=== PATIENT | male | born 1940 | race Caucasian/White ===

== ENCOUNTER 2017-04-11 04:41 | Observation (INO) | payer OTHER ==
[2017-04-11] MEDS ORDERED: ZOFRAN INJ 4 MG VIAL IVP ONE ×2 (04:58→06:06)
--- NOTE | 2017-04-11 05:01 | DR.GENAD ---
HPI - PCP Primary Care Physician: GLORIA - Complaint/Symptoms Chief Complaint Doctors Comments: Patient is complaining of nausea, vomiting and diarrhea for the past seven days getting worst tonight [place] [employer] States he had episode last week and went to see Dr. Greene and they told him to take kacy of Gator aide and lemon water to rehydrate himself because he thought he was dehydrated after getting over heated. He had a left frontal headache earlier tonight that has gone away. He denies chest pain or SOB. Chief Complaint:: N/V/D, HEADACHE STARTED TODAY(WEDNESDAY). GOT REAL HOT SOME DAYS AGO (LAST WEEK), AND JUST NEVER GOT OVER IT. SEEN LAST WEEK ALSO. - Nurses notes reviewed Nurses Notes Review: Yes - Source History Provided: Patient, EMS - Mode of Arrival Mode of Arrival: EMS - Timing Onset of Chief Complaint: 04/10/17 Came on: Gradually - Duration Duration: Intermittent How lon Duration: Days - Location Location: nausea, vomiting, diarrhea - Modifying Factors Worsens:: nothing Improves:: nothing PMH - PMH Past Medical History: Yes Past Medical History: Hypertension Past Surgical History: Yes Surgical History: Cholecystectomy Past Surgical History Comment: HERNIA REPAIR, CATARACTS - Family History History of Family Medical Conditions: Yes - Social History Does patient currently use any type of tobacco product: No Have you used tobacco products in the last 12 months: No Type of Tobacco Use: None Does any household member use tobacco: No Alcohol Use: None Do you use any recreational Drugs:: No Lives With: Spouse, Family Lives Where: Home - infectious screening Have you traveled outside the country in the last 6 months?: No Isolation: Standard ROS - Review of Systems Constitutional: No Symptoms Reported, Weakness, Loss of Appetite. negative: See HPI, Chills, Diaphoresis, Fever, Malaise, Irritable, Fatigue, Other Eyes: No Symptoms Reported ENTM: No Symptoms Reported Respiratoy: No Symptoms Reported Cardiovascular: No Symptoms Reported. negative: See HPI, Chest Pain, Edema, Palpitations, Syncope, Cyanosis, Skin Mottling, Other Gastrointestinal/Abdominal: No Symptoms Reported, Abdominal Pain, Diarrhea, Nausea, Vomiting Genitourinary: No Symptoms Reported. negative: See HPI, Discharge, Dysuria, Frequency, Hematuria, Pain, Bleeding, Other Neurological: No Symptoms Reported, Weakness Musculoskeletal: No Symptoms Reported Integumentary: No Symptoms Reported Hematologic/Lymphatic: No Symptoms Reported Endocrine: No Symptoms Reported Psychiatric: No Symptoms Reported. negative: See HPI, Anxiety, Depression, Hallucinations, Excessive crying, Suicidal, Other PE - Vital Signs Vitals: Temperature 98.7 F Pulse Rate 85 Respiratory Rate 16 Blood Pressure [Left Arm] 143/78 Blood Pressure 139/69 O2 Sat by Pulse Oximetry 97 - General Limitations: No Limitations General Appearance: Alert, In Distress (mild) - Head Head Exam: Normal Inspection, Atraumatic, Normocephalic - Eyes Eye exam: Normal Appearance, PERRL, EOMI. negative: Scleral Icterus, Conjunctival Injection, Nystagmus, Miosis, Mydrasis, Periorbital Swelling, Periorbital Tenderness, Other - ENT ENT Exam: Normal Exam, Normal Oropharynx, Normal External Ear Exam, Mucous Membranes Moist, TM's Normal Bilaterally External Ear Exam: Normal External Inspection TM/Canal Exam: Bilateral Normal Nose Exam: Normal Nose Exam Mouth Exam: Normal Inspection Throat Exam: Normal Inspection - Neck Neck Exam: Normal Inspection, Full ROM, Trachea Midline. negative: Tenderness, Meningismus, Lymphadenopathy, Thyromegaly, Other - Chest Chest Inspection: Normal Inspection, Symmetric Chest Wall Rise - Respiratory Respiratory Exam: Normal Lung Sounds Bilat Respiratory Exam: Bilateral Clear to Auscultation - Cardiovascular Cardiovascular Exam: Regular Rate, Normal Rhythm, Normal Heart Sounds - Abdominal Exam Abdominal Exam: Normal Inspection, Normal Bowel Sounds, Soft, Distention, Tenderness, Hyperactive Bowel Sounds Abdominal Tenderness: Diffuse, Moderate. negative: RUQ, RLQ, LUQ, LLQ, Epigastrium, Suprapubic, Mild, Severe, Other - Extremities Extremities Exam: Normal Inspection, Full ROM, Tenderness, Normal Capillary Refill. negative: Edema, Joint Swelling, Calf Tenderness, Other - Back Back Exam: Normal Inspection, Full ROM. negative: Tenderness, (R) CVA Tenderness, (L) CVA Tenderness, Muscle Spasm, Paraspinal Tenderness, Vertebral Tenderness, Rashes, (R) Sciatic Notch Tenderness, (L) Sciatic Notch Tendern, (R ) Straight Leg Raise, (L) Straight Leg Raise, Other - Neurologic Neurological Exam: Alert, Oriented X3, CN II-XII Intact, Normal Gait - Psychiatric Psychiatric Exam: Normal Affect, Normal Mood - Skin Skin Exam: Warm, Dry, Intact, Normal Color Course - Reevaluation 1st: Improved - Consultation Called: 06:08 Call Returned: 06:08 (Dr. Greene to admit) - Education/Counseling Education/Counseling: Patient, Family Educated On: Treatment, Diagnosis, Prognosis, Needs for Follow Up ROR - Labs Reviewed Laboratory Results Reviewed?: Yes (all labs and x-ray results reviewed and discussed with patient) Result Diagrams: 04/11/17 05:19 04/11/17 05:19 Laboratory: WBC 13.3 X10^3/uL (3.6-10.0) H 04/11/17 05:19 RBC 5.16 X10^6/uL (4.7-6.0) 04/11/17 05:19 Hgb 16.1 g/dL (13.5-18.0) 04/11/17 05:19 Hct 46.9 % (42.0-54.0) 04/11/17 05:19 MCV 90.9 fL (80.0-100.0) 04/11/17 05:19 MCH 31.3 pg (27.0-34.0) 04/11/17 05:19 MCHC 34.4 g/dL (33.0-35.0) 04/11/17 05:19 RDW 14.3 % (11.6-16.5) 04/11/17 05:19 Plt Count 194 X10^3/uL (150.0-450.0) 04/11/17 05:19 Plt Count Comment Adequate (ADEQUATE) 04/11/17 05:19 MPV 8.7 fL (7.4-11.0) 04/11/17 05:19 Neut % 95.2 % (42.0-75.0) H 04/11/17 05:19 Lymph % 0.6 % (21.0-51.0) L 04/11/17 05:19 Rhea % 3.5 % (0.0-13.0) 04/11/17 05:19 Eos % 0.3 % (0.9-2.9) L 04/11/17 05:19 Baso % 0.4 % (0.2-1.0) 04/11/17 05:19 Neut # 12.7 x10^3/uL (2.2-4.8) H 04/11/17 05:19 Lymph # 0.1 X10^3/uL (1.3-2.9) L 04/11/17 05:19 Rhea # 0.5 x10^3/uL (0.3-0.8) 04/11/17 05:19 Eos # 0.0 x10^3/uL (0.0-0.2) 04/11/17 05:19 Baso # 0.0 X10^3/uL (0.0-0.1) 04/11/17 05:19 Absolute Nucleated RBC 0.0 /100WBC 04/11/17 05:19 Total Counted 100 04/11/17 05:19 Neutrophils % (Manual) 87 % (39-76) H 04/11/17 05:19 Band Neutrophils % 9 % (0-10) 04/11/17 05:19 Lymphocytes % (Manual) 1 % (13-43) L 04/11/17 05:19 Monocytes % (Manual) 3 % (4-9) L 04/11/17 05:19 Plt Morphology Comment Normal (NORMAL) 04/11/17 05:19 RBC Morphology Normal (NORMAL) 04/11/17 05:19 Sodium 140 mmol/L (136-145) 04/11/17 05:19 Corrected Sodium 141 mmol/L (136-145) 04/11/17 05:19 Potassium 4.5 mmol/L (3.5-5.1) 04/11/17 05:19 Chloride 105 mmol/L (98-107) 04/11/17 05:19 Carbon Dioxide 27.2 mmol/L (21-32) 04/11/17 05:19 BUN 24 mg/dL (7-18) H 04/11/17 05:19 Creatinine 1.50 mg/dL (0.70-1.30) H 04/11/17 05:19 Est GFR (MDRD) Af Amer 58 (>60) L 04/11/17 05:19 Est GFR (MDRD) Non-Af 48 (>60) L 04/11/17 05:19 Glucose 129 mg/dL (65-99) H 04/11/17 05:19 Calcium 9.2 mg/dL (8.5-10.1) 04/11/17 05:19 Corrected Calcium TNP 04/11/17 05:19 Total Bilirubin 1.00 mg/dL (0.2-1.0) 04/11/17 05:19 AST 23 Units/L (15-37) 04/11/17 05:19 ALT 27 Units/L (12-78) 04/11/17 05:19 Alkaline Phosphatase 65 Units/L (46-116) 04/11/17 05:19 Total Protein 8.4 g/dL (6.4-8.2) H 04/11/17 05:19 Albumin 4.1 g/dL (3.4-5.0) 04/11/17 05:19 Globulin 4.3 g/dL (2.5-4.5) 04/11/17 05:19 Albumin/Globulin Ratio 1.0 Ratio (1.1-2.1) L 04/11/17 05:19 Amylase 87 Units/L (25-115) 04/11/17 05:19 Lipase 181 Units/L (73-393) 04/11/17 05:19 - XRAY XRAY Interpreted by: Radiologist (CT abdomen and pelvis: Mid and left abdomen multiple dilated fluid filled loops of small bowel consistent with small bowel obstruction) - Diagnosis Discharge Problem: Gastroenteritis, Small bowel obstruction, Hyperglycemia, Chronic kidney disease Abdominal pain Qualifiers: Abdominal location: generalized Qualified Code(s): R10.84 - Generalized abdominal pain - Discharge Plan Disposition: ADMITTED INPATIENT Condition: Stable - Follow ups/Referrals Follow ups/Referrals: Turner Greene [Primary Care Provider] - 3 days - Instructions
[2017-04-11] MEDS ORDERED: ZOFRAN INJ 4 MG VIAL ONE ×2 (05:08→06:00)
[2017-04-11 05:29] LABS: BASOPHILS % (AUTO) 0.4 % (0.2-1.0); EOSINOPHILS % (AUTO) 0.3 % (0.9-2.9); HEMATOCRIT 46.9 % (42.0-54.0); HEMOGLOBIN 16.1 g/dL (13.5-18.0); LYMPHOCYTES # (AUTO) 0.1 X10^3/uL (1.3-2.9); LYMPHOCYTES % (AUTO) 0.6 % (21.0-51.0); MEAN CORPUSCULAR HEMOGLOBIN 31.3 pg (27.0-34.0); MEAN CORPUSCULAR HGB CONC 34.4 g/dL (33.0-35.0); MEAN CORPUSCULAR VOLUME 90.9 fL (80.0-100.0); MEAN PLATELET VOLUME 8.7 fL (7.4-11.0); MONOCYTES # (AUTO) 0.5 x10^3/uL (0.3-0.8); MONOCYTES % (AUTO) 3.5 % (0.0-13.0); NEUTROPHILS # (AUTO) 12.7 x10^3/uL (2.2-4.8); NEUTROPHILS % (AUTO) 95.2 % (42.0-75.0); PLATELET COUNT 194 X10^3/uL (150.0-450.0); RED BLOOD COUNT 5.16 X10^6/uL (4.7-6.0); RED CELL DISTRIBUTION WIDTH 14.3 % (11.6-16.5); WHITE BLOOD COUNT 13.3 X10^3/uL (3.6-10.0)
[2017-04-11 05:40] LABS: ALANINE AMINOTRANSFERASE 27 Units/L (12-78); ALBUMIN 4.1 g/dL (3.4-5.0); ALKALINE PHOSPHATASE 65 Units/L (46-116); AMYLASE 87 Units/L (25-115); ASPARTATE AMINO TRANSFERASE 23 Units/L (15-37); BLOOD UREA NITROGEN 24 mg/dL (7-18); CALCIUM 9.2 mg/dL (8.5-10.1); CARBON DIOXIDE 27.2 mmol/L (21-32); CHLORIDE 105 mmol/L (98-107); COR NA(FOR HYPERGLY) 141 mmol/L (136-145); GLUCOSE 129 mg/dL (65-99); LIPASE 181 Units/L (73-393); SODIUM 140 mmol/L (136-145); TOTAL PROTEIN 8.4 g/dL (6.4-8.2); eGFR BLACK RACES 58 (>60); eGFR NON BLACK RACES 48 (>60)
[2017-04-11] MEDS ORDERED: REGLAN INJ 10 MG VIAL IVP STA (05:46)
--- NOTE | 2017-04-11 05:46 | CT ---
EXAM: CT ABDOMEN AND PELVIS WITHOUT CONTRAST INDICATION: Nausea and vomiting COMPARISION: No priors available for comparison TECHNIQUE: Axial CT examination of the abdomen and pelvis was performed without intravenous contrast. Coronal a nd sagittal reconstructions were created using the axial data. FINDINGS: The lung bases are clear. The liver, spleen, pancreas, adrenal glands, and kidneys are normal. The g allbladder is been removed. There is no evidence of biliary ductal dilatation. The aorta and inferio r vena cava are normal in caliber. The large bowel loops are nonobstructed. No abnormal mass, lymphadenopathy, or fluid collection. Urinary bladder is normal. Small bowel loops are dilated and fluid-filled. Air-fluid levels are pre sent. Dilated small bowel loops predominate in the mid and left abdomen. The appendix is normal. The re is colonic diverticulosis. The regional skeleton is intact. IMPRESSION: In the mid and left abdomen there are multiple dilated fluid-filled loops of small bowel consistent with a small bowel obstruction. Reported By:
[2017-04-11] MEDS ORDERED: PHENERGAN INJ 25 MG IM ONE (05:48)
[2017-04-11] MEDS ORDERED: PHENERGAN INJ 25 MG ONE (05:49)
[2017-04-11 05:57] LABS: BAND NEUTROPHILS % 9 % (0-10); PLATELET MORPHOLOGY COMMENT NORMAL (NORMAL)
[2017-04-11] MEDS ORDERED: PEPCID 20 MG IV PREMIX* 50 ML IV PRN (06:11)
[2017-04-11] MEDS ORDERED: ZOFRAN INJ 4 MG VIAL IVP PRN (06:11)
[2017-04-11] MEDS ORDERED: MORPHINE SULFATE INJ 2 MG IVP PRN (06:11)
[2017-04-11] MEDS ORDERED: D5 1/2 NS + KCL 20 MEQ/L 1,000 ML IV SCH (07:00)
[2017-04-11 08:05] VITALS: BMI 28.3
[2017-04-11] MEDS: NS 1000 ML 1,000 ML IV SCH ×2 (10:11→17:35)
[2017-04-11] MEDS: PEPCID 20 MG IV PREMIX* 20 MG/50 ML BAG IV PRN (10:17)
[2017-04-11 11:09] LABS: BILIRUBIN,URINE NEGATIVE (NEGATIVE); BLOOD/HEMOGLOBIN,URINE 1+ (NEGATIVE); GLUCOSE, URINE NEGATIVE (NEGATIVE); KETONES,URINE NEGATIVE (NEGATIVE); LEUKOCYTE ESTERASE ,URINE 1+ (NEGATIVE); NITRITES,URINE NEGATIVE (NEGATIVE); PROTEIN,URINE 1+ (NEGATIVE); UROBILINOGEN,URINE NORMAL (NORMAL)
[2017-04-11 11:14] LABS: APPEARANCE,URINE CLEAR (CLEAR); COLOR,URINE YELLOW (YELLOW)
[2017-04-11 11:28] LABS: RBC,URINE 0 - 1 /HPF (NEGATIVE)
[2017-04-11 11:29] LABS: AMORPHOUS SEDIMENT,UR TRACE /HPF (NEGATIVE); BACTERIA,URINE NEGATIVE /HPF (NEGATIVE); MUCUS,URINE MODERATE /HPF (NEGATIVE); SQUAMOUS EPITHELIAL CELL,UR RARE /HPF (NEGATIVE)
--- NOTE | 2017-04-11 12:13 | DR.H&P ---
H&P - History & Physical for Day of: H&P Date: 04/11/17 - Chief Complaint Chief Complaint: NAUSEA, VOMITING, DIARRHEA - Allergies Allergies/Adverse Reactions: Allergies Allergy/AdvReac Type Severity Reaction Status Date / Time Soy Allergy [Soy Allergy] Allergy Verified 04/11/17 07:52 STERIODS Allergy Uncoded 04/11/17 07:52 - History of Present Illness History of Present Illness: IS A 77YO PATIENT OF OURS WHO PRESENTED TO THE EMERGENCY ROOM WITH COMPLAINTS OF NAUSEA, VOMITING, AND DIARRHEA. SYMPTOMS STARTED 1 WEEK AGO AND GOT WORSE AFTER EATING LAST NIGHT. ON ARRIVAL TO ER, VITALS WERE 98.7, 85, 16, 97%, 143/78. LABS AND CT WERE OBTAINED. CT WNL EXCEPT WBC 13.3. CMP WNL EXCEPT BUN 24, CREATININE 1.50, GFR 48, GLUCOSE 129. CT ABDOMEN/PELVIS REPORTS MID AND LEFT ABDOMEN MULTIPLE DILATED FLUID LOOPS OF SMALL BOWEL CONSISTENT WITH SMALL BOWEL OBSTRUCTION. HE WAS GIVEN ZOFRAN FOR NAUSEA. WE ADMITTED PATIENT FOR FURTHER TREATMENT AND EVALUTION. PATIENT WAS ALERT AND ORIENTED ON MORNING ROUNDS WITH AT BEDSIDE. PATIENT CONTINUES TO COMPLAIN OF ABDOMINAL PAIN AND NAUSEA. VITALS ON MORNING ROUNDS WERE 99.0, 84, 20, 95%, 119/60. WE WILL START INCREASE IVF FROM 75 TO 150ML/HR, START IV PEPCID , IV ZOFRAN FOR NAUSEA, AND IV MORPHINE FOR PAIN. WE WILL RECHECK LABS AND FOLLOW UP WITH PATIENT IN AM. - Past Medical History Past Medical History: Hypertension Additional Medical History: HERNIA REPAIR, CATARACTS REMOVED - Past Surgical History Surgical History: Cholecystectomy - Social History Does patient currently use any type of tobacco product: No Have you used tobacco products in the last 12 months: No Type of Tobacco Use: None Does any household member use tobacco: No Alcohol Use: None - Medications Home Medications: Multivit-Min/FA/Lycopen/Lutein [Centrum Silver Adult 50+] 1 tab PO DAILY [History Confirmed 04/11/17] Zinc Sulfate 1 tab PO DAILY 04/11/17 [History Confirmed 04/11/17] - Review of Systems Constitutional: Weakness Eyes: No Symptoms Reported. denies: See HPI, Pain, Vision Change, Conjunctivae Inflammation, Eyelid Inflammation, Redness, Other ENT: No Symptoms Reported. denies: See HPI, Ear Pain, Ear Discharge, Nose Pain , Nose Discharge, Nose Congestion, Mouth Pain, Mouth Swelling, Throat Pain, Throat Swelling, Other Respiratory: No Symptoms Reported. denies: See HPI, Cough, Dry, Shortness of Breath, Hemoptysis, SOB with Excertion, Pleuritic Pain, Sputum, Wheezing, Other Cardiovascular: No Symptoms Reported. denies: Chest Pain, See HPI, Palpitations , Orthopnea, Paroxysmal Noc. Dyspnea, Edema, Light Headedness, Other Gastrointestinal: See HPI, Nausea, Vomiting, Diarrhea Genitourinary: No Symptoms Reported. denies: See HPI, Dysuria, Frequency, Incontinence, Hematuria, Retention, Other Skin: No Symptoms Reported. denies: See HPI, Rash, Lesions, Jaundice, Bruising , Wound, Ecchymosis, Other Neurological: Weakness. denies: No Symptoms Reported, See HPI, Numbness, Incoordination, Change in Speech, Confusion, Seizures, Other - Physical Exam Vital Signs: Temperature 99 F Pulse Rate [Right Brachial] 84 Respiratory Rate 20 Blood Pressure [Right Arm] 119/60 O2 Sat by Pulse Oximetry 95 Oriented: Normal. negative: Time, Person, Place, Not Oriented, Unable to test, Other Eyes: Normal. negative: Blurred Vision, Diplopia, Discharge, Pain, Redness, Photophobia, Other Ear: Normal. negative: Right, Left, Swelling, Ecchymosis, Hemotypanum, Abrasion , Laceration Nose: Normal. negative: Injected, Discharge, Blood, Other Throat: Normal. negative: Tonsillar Hypertrophy, Red, Exudate, Dry, Other Respiratory: Clear Throughout. negative: Diminished Throughout, Rhonchi Throughout, Rales Throughout, Wheezes Throughout, RUL Clear, RML Clear, RLL Clear, LILIANE Clear, LML Clear, LLL Clear, RUL Diminished, RML Diminished, RLL Diminished, LILIANE Diminished, LML Diminished, LLL Diminished, RUL Absent, RML Absent, RLL Absent, LILIANE Absent, LML Absent, LLL Absent, RUL Rhonchi, RML Rhonchi , RLL Rhonchi, LILIANE Rhonchi, LML Rhonchi, LLL Rhonchi, RUL Insp. Wheeze, RML Insp. Wheeze, RLL Insp. Wheeze, LILIANE Insp.Wheeze, LML Insp.Wheeze, LLL Insp.Wheeze, RUL Exp. Wheeze, RML Exp. Wheeze, RLL Exp. Wheeze, LILIANE Exp. Wheeze , LML Exp. Wheeze, LLL Exp. Wheeze, RUL Rales, RML Rales, RLL Rales, LILIANE Rales, LML Rales, LLL Rales, RUL Rub, RML Rub, RLL Rub, LILIANE Rub, LML Rub, LLL Rub, RUL Squeak, RML Squeak, RLL Squeak, LILIANE Squeak, LML Squeak, LLL Squeak Cardiovascular: Normal. negative: Tachycardia, Bradycardia, Irregular, S3, S4, Systolic, Diastolic, Murmur, Edema, Other : Normal. negative: Dysuria, Hematuria, Frequency, Discharge, Testicular Pain , Bleeding, , Other Auscultation: Bowel Sounds: Normal. negative: Bruit, Absent, Increased, Decreased, High Pitched, Other Palpation: Normal. negative: Spleen Enlarged, Liver Enlarged, Mass Pulsatile, Other Tenderness: Normal. negative: Diffuse, RUQ, RLQ, LUQ, LLQ, Epigastric, Periumbilical, Suprapubic, Mild, Moderate, Severe, Rebound, Guarding, Rigidity, Other Skin: Normal. negative: Decreased Turgur, Rash, Papular, Macular, Maculopapular , Vesicular, Pustular, Petechial, Red, Tender, Hot, Diaphoresis, Wound, Bruising , Ecchymosis, Other Musculoskeletal: Normal. negative: Right, Left, Shoulder, Clavicle, Arm, Elbow , Forearm, Wrist, Hand, Hip, Thigh, Knee, Leg, Ankle, Foot, Back:Thoracic, Back: Lumbar, Back:Midline, Back:Paraspinous, Pelvis, Swelling, Tender, Deformity, Pulse Deficit, Motor Deficit, Sensory Deficit, Instability, Crepitance Psychiatric: Normal. negative: Anxiety, Depression, Agitation, Other Mood Description: Calm. negative: Angry, Apathetic, Depressed, Fearful, Flat, Happy, Hostile, Sad, Suspicious, Withdrawn, Anxious, Appropriate, Labile Affect: Normal Speech Pattern: Clear - Assessment/Plan (1) Gastroenteritis Status: Acute Plan: IVF, ZOFRAN, CONTINUE TO MONITOR (2) Small bowel obstruction Status: Acute Plan: CONTINUE TO MONITOR (3) Abdominal pain Qualifiers: Abdominal location: generalized Qualified Code(s): R10.84 - Generalized abdominal pain Status: Acute Plan: MORPHINE, IVF, CONTINUE TO MONITOR
[2017-04-11] MEDS ORDERED: PATIENT'S HOME MEDICATION (Cholecalciferol (Vitamin D3) [Vitamin D3] 1,000 UNIT) PO SCH (14:00)
[2017-04-11] MEDS ORDERED: PATIENT'S HOME MEDICATION (Multivit-Min/Fa/Lycopen/Lutein [Centrum Silver Tablet] 1 TAB) PO SCH (14:00)
[2017-04-11] MEDS: TAB-A-VITE PO SCH (15:16)
[2017-04-11] MEDS: VITAMIN D3 PO SCH (15:17)
[2017-04-11] MEDS: ZINC SULFATE PO SCH (15:17)
[2017-04-11] MEDS ORDERED: LANTISEPTIC TOP PRN (20:17)
--- NOTE | 2017-04-11 20:20 | RAD ---
ACUTE ABDOMINAL SERIES CLINICAL HISTORY: 77-year-old male with nausea, vomiting and diarrhea with headache. COMPARISON: CT abdomen and pelvis this date. FINDINGS: PA chest radiograph demonstrates normal cardiopericardial silhouette. There is no focal consolidatio n, pleural effusion or pneumothorax. Pulmonary vascularity is normal. Abdominal radiographs demonstrate a nonobstructive bowel gas pattern. Gas and stool are seen through out the colon. There is no small bowel distention. There is no radiographic evidence of pneumoperito neum. Imaged osseous structures are intact. Soft tissues are unremarkable. IMPRESSION: 1. No acute cardiopulmonary process. 2. Nonobstructive bowel gas pattern without radiographic evidence of pneumoperitoneum. Reported By:
[2017-04-12] MEDS: NS 1000 ML 1,000 ML IV SCH ×3 (00:26→09:49)
[2017-04-12 05:33] LABS: BASOPHILS % (AUTO) 0.8 % (0.2-1.0); EOSINOPHILS % (AUTO) 0.2 % (0.9-2.9); HEMATOCRIT 39.2 % (42.0-54.0); HEMOGLOBIN 13.2 g/dL (13.5-18.0); LYMPHOCYTES # (AUTO) 0.3 X10^3/uL (1.3-2.9); MEAN CORPUSCULAR HEMOGLOBIN 30.9 pg (27.0-34.0); MEAN CORPUSCULAR HGB CONC 33.7 g/dL (33.0-35.0); MEAN CORPUSCULAR VOLUME 91.6 fL (80.0-100.0); MONOCYTES # (AUTO) 0.5 x10^3/uL (0.3-0.8); MONOCYTES % (AUTO) 7.3 % (0.0-13.0); NEUTROPHILS # (AUTO) 5.5 x10^3/uL (2.2-4.8); NEUTROPHILS % (AUTO) 87.7 % (42.0-75.0); PLATELET COUNT 147 X10^3/uL (150.0-450.0); RED BLOOD COUNT 4.27 X10^6/uL (4.7-6.0); RED CELL DISTRIBUTION WIDTH 14.5 % (11.6-16.5); WHITE BLOOD COUNT 6.2 X10^3/uL (3.6-10.0)
[2017-04-12 05:41] LABS: ALANINE AMINOTRANSFERASE 24 Units/L (12-78); ALBUMIN 2.8 g/dL (3.4-5.0); ALKALINE PHOSPHATASE 45 Units/L (46-116); ASPARTATE AMINO TRANSFERASE 24 Units/L (15-37); BLOOD UREA NITROGEN 18 mg/dL (7-18); CALCIUM 7.3 mg/dL (8.5-10.1); CARBON DIOXIDE 23.2 mmol/L (21-32); CHLORIDE 108 mmol/L (98-107); COR CA(FOR HYPOALB) 8.3 mg/dL (8.5-10.1); CREATININE 1.34 mg/dL (0.70-1.30); GLUCOSE 105 mg/dL (65-99); SODIUM 140 mmol/L (136-145); eGFR BLACK RACES > 60 (>60); eGFR NON BLACK RACES 55 (>60)
--- NOTE | 2017-04-12 06:49 | RAD ---
HISTORY: Small-bowel obstruction Study: KUB Comparison: CT abdomen pelvis without contrast April 11, 2017 Findings: The psoas shadows are seen. The abdominal gas pattern is nonspecific and nonobstructive. The dilated loops of small bowel visible the left upper quadrant on the recent CT are not well demonstrated. No abnormal masses or abnormal calcifications are identified. The regional skeleton is intact. IMPRESSION: Unremarkable KUB Reported By:
[2017-04-12] MEDS: ZINC SULFATE PO SCH ×2 (08:32→08:33)
[2017-04-12] MEDS: PEPCID 20 MG IV PREMIX* 20 MG/50 ML BAG IV PRN (08:32)
[2017-04-12] MEDS: VITAMIN D3 PO SCH (08:33)
[2017-04-12] MEDS: TAB-A-VITE PO SCH (08:33)
[2017-04-12 09:46] VITALS: BP 103/57
== END 2017-04-12 11:05 | disposition home or self-care (01) ==
LOC: ER 04:41 → MED/SURG 06:10
PROVIDERS: ADMIT Internal Medicine; ATTEND Internal Medicine
DX: R10.84 Generalized abdominal pain (principal); K56.69 Other intestinal obstruction; K52.89 Other specified noninfective gastroenteritis and colitis; N18.3 Chronic kidney disease, stage 3 (moderate); R11.2 Nausea with vomiting, unspecified; R19.7 Diarrhea, unspecified; I12.9 Hypertensive chronic kidney disease with stage 1 through stage 4 chronic kidney disease, or unspecified chronic kidney disease; D72.828 Other elevated white blood cell count; R94.4 Abnormal results of kidney function studies
CPT/HCPCS: 36415; 74000; 74022; 74176; 80053; 81001; 82150; 83690; 85025; 96365; 96374; 96375; 99284; A4216; A4222; S0028; G0378; J2270; J2405; J2550

== ENCOUNTER → 2018-02-11 | Outpatient (CLI) | payer OTHER ==
[2018-02-11 10:48] LABS: AMOUNT OF GLUCOSE 75 Grams; EDUCATION SHEET YES
== END ==
LOC: LAB 08:02
PROVIDERS: ATTEND Internal Medicine
DX: R73.09 Other abnormal glucose (principal); R00.2 Palpitations
CPT/HCPCS: 36415; 82951

== ENCOUNTER 2022-01-14 09:05 | Inpatient (IN) ==
[2022-01-14] MEDS ORDERED: ZOFRAN INJ 4 MG VIAL IVP PRN (10:56)
[2022-01-14] MEDS: PEPCID 20 MG VIAL 20 MG in NS 50 ML IV 50 ML IV SCH ×2 (11:00→21:18)
[2022-01-14] MEDS: NS 1,000 ML IV 1,000 ML IV SCH (11:00)
[2022-01-14] MEDS: PROTONIX INJ 40 MG VIAL IVP SCH ×2 (11:00→21:18)
[2022-01-14 11:31] LABS: BASOPHILS # (AUTO) 0.1 X10^3/uL (0.0-0.1); BASOPHILS % (AUTO) 0.8 % (0.2-1.0); EOSINOPHILS # (AUTO) 0.3 x10^3/uL (0.0-0.2); EOSINOPHILS % (AUTO) 3.8 % (0.9-2.9); HEMATOCRIT 31.3 % (42.0-54.0); HEMOGLOBIN 10.4 g/dL (13.5-18.0); LYMPHOCYTES # (AUTO) 0.5 X10^3/uL (1.3-2.9); LYMPHOCYTES % (AUTO) 5.3 % (21.0-51.0); MEAN CORPUSCULAR HEMOGLOBIN 26.9 pg (27.0-34.0); MEAN CORPUSCULAR HGB CONC 33.2 g/dL (33.0-35.0); MEAN CORPUSCULAR VOLUME 81.2 fL (80.0-100.0); MEAN PLATELET VOLUME 8.8 fL (7.4-11.0); MONOCYTES # (AUTO) 1.3 x10^3/uL (0.3-0.8); MONOCYTES % (AUTO) 14.9 % (0.0-13.0); NEUTROPHILS # (AUTO) 6.8 x10^3/uL (2.2-4.8); NEUTROPHILS % (AUTO) 75.2 % (42.0-75.0); RED BLOOD COUNT 3.85 X10^6/uL (4.7-6.0); WHITE BLOOD COUNT 9.1 X10^3/uL (3.6-10.0)
[2022-01-14 12:59] LABS: BILIRUBIN,URINE NEGATIVE (NEGATIVE); BLOOD/HEMOGLOBIN,URINE NEGATIVE (NEGATIVE); GLUCOSE, URINE NEGATIVE (NEGATIVE); KETONES,URINE NEGATIVE (NEGATIVE); LEUKOCYTE ESTERASE ,URINE NEGATIVE (NEGATIVE); NITRITES,URINE NEGATIVE (NEGATIVE); PROTEIN,URINE 2+ (NEGATIVE); UROBILINOGEN,URINE NORMAL (NORMAL)
[2022-01-14 13:13] LABS: APPEARANCE,URINE SLIGHTLY HAZY (CLEAR); BACTERIA,URINE TRACE /HPF (NEGATIVE); COLOR,URINE YELLOW (YELLOW); HYALINE CASTS, URINE RARE /LPF (NEGATIVE); RBC,URINE NONE SEEN /HPF (0-3); SQUAMOUS EPITHELIAL CELL,UR RARE /HPF (NEGATIVE)
--- NOTE | 2022-01-14 13:23 | MRI ---
HISTORYLOW BACK PAINSTUDYMRI L SPINE W/O CONTRASTCOMPARISONNoneTECHNIQUEMultiplan ar multi sequences images through the lumbar spine were performed without contrast.FINDINGSThere 5 [id number] lumbar type vertebral bodies. There is no evidence of acute fractures. There is multilevel disc desiccation. There is 2 millimeters anterolisthesis of L4 on L5. No focal dilatation of the abdominal aorta, no adrenal masses in the included images. The SI joints demonstrate no abnormal signal. No focal bone marrow lesions.L1-L2: No evidence of disc herniation or spinal canal or neural foraminal stenosis, moderate facet hypertrophy.L2 -- L3: There is a broad-based disc bulging and moderate facet hypertrophy, there is flattening of the thecal sac with moderate narrowing of the spinal canal, there are lateral disc bulging with mild right neural foraminal stenosis, the left neural foramina is patent.L3 -- L4: There is no evidence of disc herniation. There is odoqrjbk-[id number] facet hypertrophy and ligamentum flavum hypertrophy. There is mild to moderate narrowing of the spinal canal. The neural foramina are patent.L4 -- L5: There is 2 millimeters anterolisthesis of L4 on L5 with severe facet and ligamentum flavum hypertrophy. There are lateral disc bulging. There is mild to moderate narrowing of the spinal canal and mild bilateral neural foraminal stenosesL5 -- S1: No evidence of disc herniation, there is yrvtklgs-il-mvpuqm facet hypertrophy, no significant spinal canal stenosis, the neural foramina are patent.IMPRESSIONNo acute fractures. Moderate narrowing of the spinal canal at L2-L3 due to posterior element hypertrophy and a broad-based disc bulgingGrade 1 (2 millimeter) anterolisthesis of L4 on L5 with mild narrowing of the spinal canal at L4-L5 and severe posterior element hypertrophyMild to moderate narrowing of the spinal canal at L3-L4.Electronically signed by: Soni Villegas (Jan 14, 2022 13:22:29)
[2022-01-14 14:19] LABS: ALANINE AMINOTRANSFERASE 50 Units/L (12-78); ALBUMIN 3.2 g/dL (3.4-5.0); ALKALINE PHOSPHATASE 179 Units/L (46-116); AMYLASE 70 Units/L (25-115); ASPARTATE AMINO TRANSFERASE 42 Units/L (15-37); BLOOD UREA NITROGEN 11 mg/dL (7-18); CALCIUM 8.6 mg/dL (8.5-10.1); CARBON DIOXIDE 27.1 mmol/L (21-32); CHLORIDE 94 mmol/L (98-107); COR CA(FOR HYPOALB) 9.2 mg/dL (8.5-10.1); CREATININE 1.13 mg/dL (0.70-1.30); LIPASE 320 Units/L (73-393); SODIUM 127 mmol/L (136-145); TOTAL PROTEIN 6.5 g/dL (6.4-8.2); eGFR NON BLACK RACES > 60 (>60)
[2022-01-14] MEDS: MORPHINE SULFATE INJ 2 MG INJ IVP PRN ×2 (16:38→22:27)
[2022-01-15] MEDS: NS 1,000 ML IV 1,000 ML IV SCH ×2 (00:30→02:09)
[2022-01-15 06:15] LABS: BASOPHILS # (AUTO) 0.1 X10^3/uL (0.0-0.1); EOSINOPHILS # (AUTO) 0.5 x10^3/uL (0.0-0.2); EOSINOPHILS % (AUTO) 5.6 % (0.9-2.9); HEMATOCRIT 32.1 % (42.0-54.0); HEMOGLOBIN 10.5 g/dL (13.5-18.0); LYMPHOCYTES # (AUTO) 0.5 X10^3/uL (1.3-2.9); LYMPHOCYTES % (AUTO) 5.8 % (21.0-51.0); MEAN CORPUSCULAR HEMOGLOBIN 26.5 pg (27.0-34.0); MEAN CORPUSCULAR HGB CONC 32.6 g/dL (33.0-35.0); MEAN CORPUSCULAR VOLUME 81.2 fL (80.0-100.0); MEAN PLATELET VOLUME 8.7 fL (7.4-11.0); MONOCYTES # (AUTO) 1.3 x10^3/uL (0.3-0.8); MONOCYTES % (AUTO) 15.4 % (0.0-13.0); NEUTROPHILS # (AUTO) 6.2 x10^3/uL (2.2-4.8); NEUTROPHILS % (AUTO) 72.2 % (42.0-75.0); RED BLOOD COUNT 3.96 X10^6/uL (4.7-6.0); WHITE BLOOD COUNT 8.6 X10^3/uL (3.6-10.0)
[2022-01-15 06:35] LABS: ALANINE AMINOTRANSFERASE 48 Units/L (12-78); ALBUMIN 3.2 g/dL (3.4-5.0); ALKALINE PHOSPHATASE 181 Units/L (46-116); ASPARTATE AMINO TRANSFERASE 37 Units/L (15-37); BLOOD UREA NITROGEN 9 mg/dL (7-18); CALCIUM 8.6 mg/dL (8.5-10.1); CARBON DIOXIDE 27.7 mmol/L (21-32); CHLORIDE 97 mmol/L (98-107); COR CA(FOR HYPOALB) 9.2 mg/dL (8.5-10.1); CREATININE 1.11 mg/dL (0.70-1.30); SODIUM 132 mmol/L (136-145); TOTAL PROTEIN 6.6 g/dL (6.4-8.2); eGFR NON BLACK RACES > 60 (>60)
[2022-01-15] MEDS: PEPCID 20 MG VIAL 20 MG in NS 50 ML IV 50 ML IV SCH (08:11)
[2022-01-15] MEDS: PROTONIX INJ 40 MG VIAL IVP SCH (08:15)
--- NOTE | 2022-01-15 10:27 | CT ---
HISTORYAbdominal painSTUDYCT abdomen pelvis with contrastTechnique: Axial noncontrast images with coronal and sagittal reformats. Dose reduction procedures were used with mA/kv adjusted for body size.COMPARISONNoneFINDINGSBest visualized on CT series 4, image 13 is a 7 mm subpleural right lower lobe pulmonary nodule requiring CT follow-up in 6 months to assess for stability. Best visualized on CT series 4, image 4 is a 4.5 mm anterior subpleural pulmonary nodule which can be followed along with the larger nodule. Best visualized on CT series 4, image 8 is a 6.2 mm posterior left lower lobe pulmonary nodule which require CT follow-up in 6 months. Examination of the liver demonstrated diffuse involvement with multiple lesions of decreased attenuation most consistent with diffuse hepatic metastatic disease. There is some fluid present along the right lateral aspect of the liver. Patient is status post cholecystectomy. There is mild intra and extrahepatic biliary ductal dilatation with the common duct measuring approximately 11 mm. The common duct can be followed into the head of the pancreas where there appears to be an ill-defined 2.7 x 2.2 by 2.5 cm mass located dorsally and inferiorly within the pancreatic head. Pancreatic neoplasm is certainly possible. Further evaluation of this pancreas with MRI is recommended. Enlarged peripancreatic lymph nodes are identified. The kidneys are unobstructed and without stones or masses. Right renal cyst is present. No ureteral calculi are identified. Abdominal aorta is normal in caliber and demonstrates only minimal calcific atherosclerotic change. No para-aortic lymphadenopathy is identified. There are no findings suggestive of enteritis, colitis, or diverticulitis. There is an abnormal soft tissue mass involving the medial wall of the proximal ascending colon just distal to the ileocecal valve. It measures approximately 4.1 x 4.2 x 3.2 cm. Primary colonic neoplasm is certainly possible. Adjacent to this mass there is an abnormal soft tissue mass measuring 3.6 by 3 by 3.3 cm possibly metastatic adenopathy. An additional mass/node measuring 2.6 x 1.8 cm is identified abutting the previously described pancreatic head mass. Smaller paracaval lymph nodes are identified. Findings could be consistent with either primary colonic malignancy or primary pancreatic malignancy with hepatic and lymph node metastases. Examination of the pelvis demonstrated no evidence for pelvic masses, pelvic fluid, or pelvic lymphadenopathy. Prostate gland is enlarged. No lytic or blastic skeletal lesions of significance are identified.IMPRESSIONFindings consistent with diffuse hepatic metastatic disease Likely either from primary pancreatic or colonic malignancy.2.7 x 2.2 x 2.5 cm mass there in or abutting the posterior aspect of the head of the pancreas with adjacent peripancreatic lymphadenopathy and pericaval lymphadenopathy. Primary pancreatic cancer is possible as is adjacent metastatic disease4.1 x 4.2 x 3.2 cm mass involving the medial wall of the proximal ascending colon just distal to the ileocecal valve with adjacent soft tissue masses likely representing metastatic lymphadenopathy extending to the area of the head of the pancreas. This could represent primary colonic malignancy with adamaris metastasis or metastatic pancreatic neoplasmBibasilar pulmonary nodules as described above which could be granulomatous, metastatic lesions, or primary neoplasm. See recommendations as aboveSmall amount of fluid along the lateral aspect of the liverEnlarged prostate glandElectronically signed by: DELL LI (Jan 15, 2022 10:25:34)
[2022-01-15] MEDS ORDERED: D5 LR 1,000 ML 1,000 ML IV ONE (11:09)
[2022-01-15] MEDS ORDERED: DIPRIVAN VIAL 20 ML ONE (11:22)
[2022-01-15] MEDS ORDERED: DIFLUCAN PO SCH (12:00)
--- NOTE | 2022-01-15 12:10 | DR.H&P ---
H&P - History & Physical for Day of: H&P Date: 01/14/22 - Chief Complaint Chief Complaint: BACK PAIN, ABDOMINAL PAIN, WEIGHT LOSS, NAUSEA - History of Present Illness History of Present Illness: HAS BEEN FOLLOWED IN THE OFFICE FOR C OMPLAINTS OF PERIUMBILICAL ABDOMINAL PAIN, NAUSEA, AND INTRACTABLE BACK PAIN FOR THE PAST SEVERAL WEEKS. BACK PAIN HAS BEEN PRESENT FOR THE PAST MONTH. HE HAS RECEIVED PHYSICAL THERAPY AND HAS SEEN THE CHIROPRACTOR WITHOUT SIGNIFICANT IMPROVEMENT IN SYMPTOMS. BACK PAIN IS DESCRIBED DULL, CONSTANT, AND HE RATED IT A 6/10 TODAY. ABDOMINAL PAIN IS DESCRIBED INTERMITTENT, SHARP, AND IS RATED A 4/10 TODAY. ABDOMINAL PAIN HAS BEEN PRESENT FOR THE PAST MONTH, BUT HAS GOTTEN WORSE OVER THE PAST 2 WEEKS. HE ADMITS TO A 30 POUND WEIGHT LOSS OVER THE PAST SEVERAL MONTHS. HE HAS TAKEN PEPCID 40MG PO DAILY, PROTONIX 40MG PO DAILY, AND GI COCKTAIL 10ML QID FOR ABDOMINAL PAIN SINCE 01/06 WITHOUT IMPROVEMENT IN SYMPTOMS. HE ADMITS TO FREQUENT NAUSEA AFTER EATING AND INDIGESTION. HE WAS ADMITTED TO THE HOSPITAL FOR FURTHER EVALUATION AND TREATMENT. ON ARRIVAL TO THE HOSPTIAL, VITALS WERE 98.0-70-22-92%-166/76. LABS WERE OBTAINED. WBC 9.1, RBC 3.85, HGB 10.4, HCT 31.3, SODIUM 127, POTASSIUM 4.0, CHLORIDE 94, BUN 11, CREATININE 1.13, GLUCOSE 108, CALCIUM 8.3, TOTAL BILI 0.80, AST 42, ALK PHOS 179, ALBUMIN 3.2, AMYLASE 70, LIPASE 320. A URINALYSIS WAS OBTAINED AND REVEALED: WBC 0-2, RBC NONE SEEN, BACTERIA TRACE, LEUKOCYTES NEGATIVE. COVID-19 NEGATIVE. WE OBTAINED AN ABDOMEN/PELVIS CT WITH CONTRAST. 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 2.7 x 2.2 x 2.5 cm mass there in or abutting the posterior aspect of the head of the pancreas with adjacent peripancreatic lymphadenopathy and pericaval lymphadenopathy. Primary pancreatic cancer is possible as is adjacent metastatic disease. 4.1 x 4.2 x 3.2 cm mass involving the medial wall of the proximal ascending colon just distal to the ileocecal valve with adjacent soft tissue masses likely representing metastatic lymphadenopathy extending to the area of the head of the pancreas. This could represent primary colonic malignancy with adamaris metastasis or metastatic pancreatic neoplasm. Bibasilar pulmonary nodules as described above which could be granulomatous, metastatic lesions, or primary neoplasm. Small amount of fluid along the lateral aspect of the liver. Enlarged prostate gland. A LUMBAR SPINE MRI WITHOUT CONTRAST WAS OBTAINED AND REVEALED: No acute fractures. Moderate narrowing of the spinal canal at L2-L3 due to posterior element hypertrophy and a broad-based disc bulging. Grade 1 (2 millimeter) anterolisthesis of L4 on L5 with mild narrowing of the spinal canal at L4-L5 and severe posterior element hypertrophy. Mild to moderate narrowing of the spinal canal at L3-L4. WE WILL CONSULT FOR POSSIBLE ENDOSCOPY. WE WILL START HIM ON NORMAL SALINE AT 80 ML/HR, PEPCID 20MG IV Q12H, PROTONIX 40MG IV BID, DIFLUCAN 100MG PO DAILY, MORPHINE 2MG IV Q4H PRN PAIN, ZOFRAN 4MG IV Q4H PRN. WE WILL OBTAIN A CA 19-9 AND CEA LEVEL. OTHERWISE, WE PLAN TO FOLLOW UP WITH AM LABS AND CONTINUE TO MONITOR. TIME SPENT ON CLINICAL ASSESSMENT, REVIEWING LABS AND IMAGING, DECISION MAKING, AND DOCUMENTATION GREATER THAN 75 MINUTES. - Past Medical History Past Medical History: Coronary Artery Disease, GERD, Hypertension Additional Medical History: HERNIA REPAIR, CATARACTS REMOVED, A-FIB - Past Surgical History Surgical History: Cholecystectomy, Other Additional Surgical History: INGUINAL HERNIA REPAIR - Family History Family Medical History: Cancer, [place] - Social History Does patient currently use any type of tobacco product: No Have you used tobacco products in the last 12 months: No Type of Tobacco Use: None Does any household member use tobacco: No Alcohol Use: None Drug Use: None - Medications Home Medications: soy Allergy (Verified 08/25/19 08:22) STEROIDS Allergy (Uncoded 08/25/19 08:22) CONTINUE taking the following medications apixaban [Eliquis] 2.5 mg PO BID 01/14/22 [History] ascorbic acid (vitamin C) [Vitamin C] 1 g PO HS 01/14/22 [History] aspirin 81 mg PO HS 01/14/22 [History] brimonidine-timolol [Combigan] 1 drp OPHTHALMIC (EYE) BID 01/14/22 [History] famotidine 40 mg PO BID 01/14/22 [History] latanoprost 1 drp OPHTHALMIC (EYE) HS 01/14/22 [History] metoprolol succinate 25 mg PO DAILY 01/14/22 [History] vit C-vit [id number]-dwvhuk-aswj-lutein [PreserVision Lutein] 1 cap PO BID 01/14/22 [History] - Review of Systems Constitutional: See HPI, Weakness, Malaise, Other (DECREASED APPETITE, WEIGHT LOSS ) Eyes: No Symptoms Reported ENT: No Symptoms Reported Respiratory: No Symptoms Reported Cardiovascular: No Symptoms Reported Gastrointestinal: See HPI, Nausea, Abdominal Pain, Constipation Genitourinary: No Symptoms Reported Musculoskeletal: See HPI, Back Pain Skin: No Symptoms Reported Neurological: Weakness - Physical Exam Vital Signs: Temperature 98.2 F Pulse Rate [Left] 83 Pulse Rate 59 Respiratory Rate 20 Blood Pressure [Left Arm] 142/73 Blood Pressure [Right Arm] 169/83 Blood Pressure 143/84 O2 Sat by Pulse Oximetry 97 Oriented: Normal Eyes: Normal Ear: Normal Nose: Normal Throat: Normal Respiratory: Clear Throughout Cardiovascular: Normal : Normal Auscultation: Bowel Sounds: Normal Palpation: Normal Tenderness: Periumbilical, Moderate Skin: Decreased Turgur Musculoskeletal: Back:Thoracic, Back:Lumbar, Back:Midline, Back:Paraspinous, T roslyn Psychiatric: Normal Mood Description: Calm Affect: Normal Speech Pattern: Clear - Assessment/Plan (1) Abdominal pain Qualifiers: Abdominal location: generalized Qualified Code(s): R10.84 - Generalized abdominal pain Status: Acute Plan: ADMIT, GI CONSULT, NORMAL SALINE AT 80 ML/HR, PEPCID 20MG IV Q12H, PROTONIX 40MG IV BID, DIFLUCAN 100MG PO DAILY, MORPHINE 2MG IV Q4H PRN PAIN, ZOFRAN 4MG IV Q4H PRN. 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
--- NOTE | 2022-01-15 12:25 | PCM.PROG ---
Progress Note - Progress Note for Day of Date of Exam: 01/15/22 - Subjective Subjective: WAS ADMITTED FOR TREATMENT OF INTRACTABLE ABDOMINAL PAIN, INTRACTABLE BACK PAIN, NAUSEA, AND WEIGHT LOSS. 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 TODAY, HE IS ALERT, SITTING UP IN BED ON MORNING ROUNDS. HE CONTINUES WITH COMPLAINTS OF ABDOMINAL PAIN AND BACK PAIN TODAY. HE DESCRIBES BACK PAIN TO THE CERVICAL, THORACIC, AND LUMBAR REGIONS. HE DESCRIBES ABDOMINAL PAIN DIFFUSE. HE CONTINUES WITH NAUSEA, BUT DOES ADMIT TO SLIGHT IMPROVEMENT IN NAUSEA THIS MORNING. ON EXAMINATION, HEART IS REGULAR IN RATE AND RHYTHM. BILATERAL LUNGS NOTED WITH DIMINISHED LUNG SOUNDS THROUGHOUT. ABDOMEN IS ROUND, SOFT, AND NOTED WITH DIFFUSE TENDERNESS TO PALPATION. NORMAL BOWEL SOUNDS NOTED IN ALL QUADRANTS. THERE IS TENDERNESS TO THE CERVICAL, THORACIC, AND LUMBAR REGIONS ON PALPATION. NO UPPER OR LOWER EXTREMITY EDEMA NOTED. HIS VITALS THIS MORNING ARE: 98.3-83-18-97%-142/73. LABS WERE OBTAINED. WBC 8.6, RBC 3.96, HGB 10.5, HCT 32.1, SODIUM 132, POTASSIUM 4.1, CHLORIDE 97, BUN 9, CREATININE 1.11, GLUCOSE 92, CALCIUM 8.6, AST 37, ALT 48, ALK PHOS 181, TOTAL PROTEIN 6.6, ALBUMIN 3.2. HE IS CURRENTLY RECEIVING NORMAL SALINE AT 80 ML/HR, PEPCID 20MG IV Q12H, PROTONIX 40MG IV BID, DIFLUCAN 100MG PO DAILY, MORPHINE 2MG IV Q4H PRN PAIN, ZOFRAN 4MG IV Q4H PRN. DUE TO CT RESULTS AND PHYSICAL EXAM, WE WILL OBTAIN A MRI OF THE CERVICAL AND THORACIC SPINE WITH CONTRAST TO FURTHER ASSESS FOR METS TO THESE REGIONS. HE IS SCHEDULED FOR AN EGD WITH THIS MORNING. OTHERWISE, WE PLAN TO FOLLOW UP WITH AM LABS AND CONTINUE TO MONITOR. TIME SPENT ON CLINICAL ASSESSMENT, REVIEWING LABS AND IMAGING, DECISION MAKING, AND DOCUMENTATION GREATER THAN 45 MINUTES. - Past Medical Family Social History Past Med/Fam/Surg Hx: No changes since H&P Allergies: Allergies soy Allergy (Verified 08/25/19 08:22) STEROIDS Allergy (Uncoded 08/25/19 08:22) - Review of Systems ROS: No change since H&P - Vital Signs and I&O's Vital Signs: Temperature 98.2 F Pulse Rate [Left] 83 Pulse Rate 59 Respiratory Rate 20 Blood Pressure [Left Arm] 142/73 Blood Pressure [Right Arm] 169/83 Blood Pressure 143/84 O2 Sat by Pulse Oximetry 97 Intake and Output: Intake & Output 01/13/22 01/14/22 01/15/22 01/16/22 11:59 11:59 11:59 11:59 Intake Total 1250 / 1250 Output Total 1600 / 1600 Balance -350 / -350 - Physical Exam Oriented: Normal Eyes: Normal Ear: Normal Nose: Normal Throat: Normal Respiratory: Generalized, Diminished Cardiovascular: Normal : Normal Auscultation: Bowel Sounds: Normal Palpation: Normal Tenderness: Periumbilical, Moderate Skin: Decreased Turgur Musculoskeletal: Back:Thoracic, Back:Lumbar, Back:Midline, Back:Paraspinous, Tender Psychiatric: Normal Mood Description: Calm Affect: Normal Speech Pattern: Clear - Laboratory and Diagnostics Result Diagrams: 01/15/22 05:49 01/15/22 05:49 Labs: Laboratory WBC 8.6 X10^3/uL (3.6-10.0) 01/15/22 05:49 RBC 3.96 X10^6/uL (4.7-6.0) L 01/15/22 05:49 Hgb 10.5 g/dL (13.5-18.0) L 01/15/22 05:49 Hct 32.1 % (42.0-54.0) L 01/15/22 05:49 MCV 81.2 fL (80.0-100.0) 01/15/22 05:49 MCH 26.5 pg (27.0-34.0) L 01/15/22 05:49 MCHC 32.6 g/dL (33.0-35.0) L 01/15/22 05:49 RDW 15.0 % (11.6-16.5) 01/15/22 05:49 Plt Count 321 X10^3/uL (150.0-450.0) 01/15/22 05:49 MPV 8.7 fL (7.4-11.0) 01/15/22 05:49 Neut % (Auto) 72.2 % (42.0-75.0) 01/15/22 05:49 Lymph % (Auto) 5.8 % (21.0-51.0) L 01/15/22 05:49 Andrew % (Auto) 15.4 % (0.0-13.0) H 01/15/22 05:49 Eos % (Auto) 5.6 % (0.9-2.9) H 01/15/22 05:49 Baso % (Auto) 1.0 % (0.2-1.0) 01/15/22 05:49 Neut # (Auto) 6.2 x10^3/uL (2.2-4.8) H 01/15/22 05:49 Lymph # (Auto) 0.5 X10^3/uL (1.3-2.9) L 01/15/22 05:49 Andrew # (Auto) 1.3 x10^3/uL (0.3-0.8) H 01/15/22 05:49 Eos # (Auto) 0.5 x10^3/uL (0.0-0.2) H 01/15/22 05:49 Baso # (Auto) 0.1 X10^3/uL (0.0-0.1) 01/15/22 05:49 Absolute Nucleated RBC 0.1 /100WBC 01/15/22 05:49 Sodium 132 mmol/L (136-145) L 01/15/22 05:49 Corrected Sodium TNP 01/15/22 05:49 Potassium 4.1 mmol/L (3.5-5.1) 01/15/22 05:49 Chloride 97 mmol/L (98-107) L 01/15/22 05:49 Carbon Dioxide 27.7 mmol/L (21-32) 01/15/22 05:49 BUN 9 mg/dL (7-18) 01/15/22 05:49 Creatinine 1.11 mg/dL (0.70-1.30) 01/15/22 05:49 Est GFR (MDRD) Af Amer > 60 (>60) 01/15/22 05:49 Est GFR (MDRD) Non-Af > 60 (>60) 01/15/22 05:49 Glucose 92 mg/dL (65-99) 01/15/22 05:49 Calcium 8.6 mg/dL (8.5-10.1) 01/15/22 05:49 Corrected Calcium 9.2 mg/dL (8.5-10.1) 01/15/22 05:49 Total Bilirubin 1.00 mg/dL (0.2-1.0) 01/15/22 05:49 AST 37 Units/L (15-37) 01/15/22 05:49 ALT 48 Units/L (12-78) 01/15/22 05:49 Alkaline Phosphatase 181 Units/L (46-116) H 01/15/22 05:49 Total Protein 6.6 g/dL (6.4-8.2) 01/15/22 05:49 Albumin 3.2 g/dL (3.4-5.0) L 01/15/22 05:49 Globulin 3.4 g/dL (2.5-4.5) 01/15/22 05:49 Albumin/Globulin Ratio 0.9 Ratio (1.1-2.1) L 01/15/22 05:49 Amylase 70 Units/L (25-115) 01/14/22 12:43 Lipase 320 Units/L (73-393) 01/14/22 12:43 Specimen Type Clean catch urine 01/14/22 12:45 Urine Color Yellow (YELLOW) 01/14/22 12:45 Urine Appearance Slightly hazy (CLEAR) 01/14/22 12:45 Urine pH 7.0 (5.0 - 8.0) 01/14/22 12:45 Ur Specific [place] 1.015 (1.000-1.030) 01/14/22 12:45 Urine Protein 2+ (NEGATIVE) 01/14/22 12:45 Urine Glucose (UA) Negative (NEGATIVE) 01/14/22 12:45 Urine Ketones Negative (NEGATIVE) 01/14/22 12:45 Urine Blood Negative (NEGATIVE) 01/14/22 12:45 Urine Nitrite Negative (NEGATIVE) 01/14/22 12:45 Urine Bilirubin Negative (NEGATIVE) 01/14/22 12:45 Urine Urobilinogen Normal (NORMAL) 01/14/22 12:45 Ur Leukocyte Esterase Negative (NEGATIVE) 01/14/22 12:45 Urine RBC None seen /HPF (0-3) 01/14/22 12:45 Urine WBC 0-2 /HPF (0-5) 01/14/22 12:45 Ur Squamous Epith Cells Rare /HPF (NEGATIVE) 01/14/22 12:45 Amorphous Sediment 2+ /HPF (NEGATIVE) 01/14/22 12:45 Urine Bacteria Trace /HPF (NEGATIVE) 01/14/22 12:45 Hyaline Casts Rare /LPF (NEGATIVE) 01/14/22 12:45 Ur Culture Indicated? No/not indicated 01/14/22 12:45 SARS-CoV-2 (PCR) Negative (NEGATIVE) 01/14/22 12:45 - Plan (1) Abdominal pain Status: Acute Qualifiers: Abdominal location: generalized Qualified Code(s): R10.84 - Generalized a bdominal pain Plan: GI CONSULT, NORMAL SALINE AT 80 ML/HR, PEPCID 20MG IV Q12H, PROTONIX 40MG IV BID, DIFLUCAN 100MG PO DAILY, MORPHINE 2MG IV Q4H PRN PAIN, ZOFRAN 4MG IV Q4H PRN. 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
[2022-01-15] MEDS: MORPHINE SULFATE INJ 2 MG INJ IVP PRN ×2 (12:55→17:43)
[2022-01-15] MEDS ORDERED: VALIUM PO ONE (13:38)
[2022-01-15] MEDS ORDERED: ZINC SULFATE PO SCH (15:00)
[2022-01-15] MEDS ORDERED: TOPROL XL PO SCH ×2 (15:00→21:00)
[2022-01-15 15:37] VITALS: BP 171/82
[2022-01-15] MEDS ORDERED: VALIUM PO NR (17:00)
[2022-01-15] MEDS ORDERED: VITAMIN D3 125 mcg (5,000 UNITS) PO SCH (21:00)
[2022-01-15] MEDS ORDERED: VITAMIN C PO SCH (21:00)
[2022-01-15] MEDS ORDERED: XALATAN OP SCH (21:00)
[2022-01-15] MEDS ORDERED: COMBIGAN EYE DROPS OP SCH (21:00)
[2022-01-15] MEDS ORDERED: VIT C VIT E COPPER ZINC LUTEIN PO SCH (21:00)
[2022-01-16] MEDS ORDERED: TAB-A-VITE PO SCH (09:00)
== END 2022-01-15 18:00 | disposition home or self-care (01) | DRG 436 ==
LOC: MED/SURG → OBSVTOIN 09:06
PROVIDERS: ADMIT Internal Medicine; ATTEND Internal Medicine

== ENCOUNTER 2022-02-19 11:10 | Inpatient (IN) ==
[2022-02-19] MEDS ORDERED: TORADOL 30 MG VIAL IVP PRN (11:31)
[2022-02-19] MEDS ORDERED: ZOFRAN INJ 4 MG VIAL IVP PRN (11:31)
[2022-02-19 12:03] LABS: BASOPHILS % (AUTO) 0.4 % (0.2-1.0); EOSINOPHILS # (AUTO) 0.6 x10^3/uL (0.0-0.2); EOSINOPHILS % (AUTO) 6.2 % (0.9-2.9); HEMATOCRIT 32.2 % (42.0-54.0); HEMOGLOBIN 10.6 g/dL (13.5-18.0); LYMPHOCYTES # (AUTO) 0.5 X10^3/uL (1.3-2.9); LYMPHOCYTES % (AUTO) 5.7 % (21.0-51.0); MEAN CORPUSCULAR HEMOGLOBIN 24.8 pg (27.0-34.0); MEAN CORPUSCULAR VOLUME 75.2 fL (80.0-100.0); MEAN PLATELET VOLUME 7.9 fL (7.4-11.0); NEUTROPHILS # (AUTO) 7.1 x10^3/uL (2.2-4.8); NEUTROPHILS % (AUTO) 76.7 % (42.0-75.0); RED BLOOD COUNT 4.28 X10^6/uL (4.7-6.0); RED CELL DISTRIBUTION WIDTH 16.9 % (11.6-16.5); WHITE BLOOD COUNT 9.3 X10^3/uL (3.6-10.0)
[2022-02-19 12:15] LABS: ALANINE AMINOTRANSFERASE 41 Units/L (12-78); ALBUMIN 2.7 g/dL (3.4-5.0); ALKALINE PHOSPHATASE 192 Units/L (46-116); ASPARTATE AMINO TRANSFERASE 40 Units/L (15-37); BLOOD UREA NITROGEN 16 mg/dL (7-18); CALCIUM 8.5 mg/dL (8.5-10.1); CARBON DIOXIDE 23.7 mmol/L (21-32); CHLORIDE 94 mmol/L (98-107); COR CA(FOR HYPOALB) 9.5 mg/dL (8.5-10.1); COR NA(FOR HYPERGLY) 128 mmol/L (136-145); CREATININE 1.13 mg/dL (0.70-1.30); SODIUM 127 mmol/L (136-145); TOTAL PROTEIN 6.5 g/dL (6.4-8.2); eGFR NON BLACK RACES > 60 (>60)
[2022-02-19 12:37] VITALS: BMI 24.4
--- NOTE | 2022-02-19 13:26 | RAD ---
HISTORYSOB AMSSTUDYAP chestCOMPARISONCT chest 06/09/2018FINDINGSHeart size normal. Chronic-appearing interstitial prominence without evidence for airspace component, hilar enlargement or pleural effusion. Mild nonspecific left diaphragm elevation.IMPRESSIONNo acute chest disease demonstrated.Electronically signed by: QUEENIE KRISHNA (February 19, 2022 13:25:42)
--- NOTE | 2022-02-19 13:40 | CT ---
HISTORYAMS, WEAKNESSSTUDYBRAIN W/O CONCOMPARISONNoneTECHNIQUEMultiple axial CT images of the head without contrast. Dose reduction techniques including Automated Exposure Control (AEC) and adjustment of mA and kV were utilized.FINDINGSNo visible intracranial hemorrhage or overt acute infarct. No ventriculomegaly or midline shift. Basal cisterns appear patent. Globes intact. Included paranasal sinuses and mastoid air cells appear aerated. Skull base and calvarium appear intact.IMPRESSIONNo acute intracranial finding.Electronically signed by: Chandan Mckee (February 19, 2022 13:39:30)
[2022-02-19] MEDS: PERCOCET TAB 5/325 MG PO PRN ×2 (13:51→20:30)
[2022-02-19] MEDS: NS 1,000 ML IV 1,000 ML IV SCH ×2 (13:51→20:33)
[2022-02-19 13:59] LABS: BILIRUBIN,URINE NEGATIVE (NEGATIVE); BLOOD/HEMOGLOBIN,URINE NEGATIVE (NEGATIVE); GLUCOSE, URINE NEGATIVE (NEGATIVE); KETONES,URINE NEGATIVE (NEGATIVE); LEUKOCYTE ESTERASE ,URINE NEGATIVE (NEGATIVE); NITRITES,URINE NEGATIVE (NEGATIVE); PROTEIN,URINE 2+ (NEGATIVE); UROBILINOGEN,URINE 1+ (NORMAL)
[2022-02-19 14:04] LABS: APPEARANCE,URINE CLEAR (CLEAR); BACTERIA,URINE TRACE /HPF (NEGATIVE); COLOR,URINE YELLOW (YELLOW); RBC,URINE NONE SEEN /HPF (0-3); SQUAMOUS EPITHELIAL CELL,UR RARE /HPF (NEGATIVE)
[2022-02-19] MEDS: TORADOL 30 MG VIAL IVP SCH ×2 (16:36→23:35)
[2022-02-19] MEDS: DILAUDID INJ IVP PRN ×2 (16:37→17:11)
[2022-02-19] MEDS ORDERED: [UNRECOGNIZED DRUG - OTHER] PO SCH (21:00)
[2022-02-19] MEDS ORDERED: ELIQUIS PO SCH (21:00)
[2022-02-19] MEDS ORDERED: CHOLECALCIFEROL 1000 UNIT PO SCH (21:00)
[2022-02-19] MEDS ORDERED: VIT C E CUPRIC ZINC LUTEIN PO SCH (21:00)
[2022-02-19] MEDS: XANAX PO SCH ×2 (22:00)
[2022-02-19] MEDS: XALATAN OP SCH (22:01)
[2022-02-19] MEDS: VITAMIN C PO SCH (22:01)
[2022-02-19] MEDS: TOPROL XL PO SCH (22:02)
[2022-02-19] MEDS: PEPCID TAB 40 MG PO SCH (22:03)
[2022-02-19] MEDS: ELIQUIS PO SCH (22:03)
[2022-02-19] MEDS: PROTONIX INJ 40 MG VIAL IVP SCH (22:03)
[2022-02-19] MEDS: COMBIGAN EYE DROPS OP SCH (22:04)
[2022-02-20] MEDS: NS 1,000 ML IV 1,000 ML IV SCH (04:38)
[2022-02-20] MEDS: TORADOL 30 MG VIAL IVP SCH ×4 (04:54→23:01)
[2022-02-20 05:08] LABS: BASOPHILS # (AUTO) 0.1 X10^3/uL (0.0-0.1); BASOPHILS % (AUTO) 0.7 % (0.2-1.0); EOSINOPHILS # (AUTO) 0.8 x10^3/uL (0.0-0.2); EOSINOPHILS % (AUTO) 8.9 % (0.9-2.9); HEMATOCRIT 27.7 % (42.0-54.0); HEMOGLOBIN 9.3 g/dL (13.5-18.0); LYMPHOCYTES # (AUTO) 0.6 X10^3/uL (1.3-2.9); LYMPHOCYTES % (AUTO) 7.1 % (21.0-51.0); MEAN CORPUSCULAR HEMOGLOBIN 24.9 pg (27.0-34.0); MEAN CORPUSCULAR HGB CONC 33.7 g/dL (33.0-35.0); MEAN PLATELET VOLUME 8.1 fL (7.4-11.0); MONOCYTES # (AUTO) 1.1 x10^3/uL (0.3-0.8); NEUTROPHILS # (AUTO) 6.2 x10^3/uL (2.2-4.8); NEUTROPHILS % (AUTO) 71.3 % (42.0-75.0); RED BLOOD COUNT 3.74 X10^6/uL (4.7-6.0); WHITE BLOOD COUNT 8.7 X10^3/uL (3.6-10.0)
[2022-02-20 05:16] LABS: ALANINE AMINOTRANSFERASE 34 Units/L (12-78); ALBUMIN 2.3 g/dL (3.4-5.0); ALKALINE PHOSPHATASE 157 Units/L (46-116); ASPARTATE AMINO TRANSFERASE 34 Units/L (15-37); BLOOD UREA NITROGEN 14 mg/dL (7-18); CALCIUM 7.9 mg/dL (8.5-10.1); CARBON DIOXIDE 21.1 mmol/L (21-32); CHLORIDE 99 mmol/L (98-107); COR CA(FOR HYPOALB) 9.3 mg/dL (8.5-10.1); CREATININE 0.91 mg/dL (0.70-1.30); SODIUM 130 mmol/L (136-145); TOTAL PROTEIN 5.4 g/dL (6.4-8.2); eGFR NON BLACK RACES > 60 (>60)
[2022-02-20] MEDS: XANAX PO SCH ×4 (05:20→22:00)
[2022-02-20 05:54] LABS: HYPOCHROMASIA SLIGHT; MICROCYTOSIS SLIGHT; PLATELET MORPHOLOGY COMMENT NORMAL (NORMAL)
[2022-02-20] MEDS: ELIQUIS PO SCH ×2 (08:17→20:38)
[2022-02-20] MEDS: VITAMIN D3 125 mcg (5,000 UNITS) PO SCH (08:17)
[2022-02-20] MEDS: PEPCID TAB 40 MG PO SCH ×2 (08:17→20:41)
[2022-02-20] MEDS: TOPROL XL PO SCH ×2 (08:17→20:40)
[2022-02-20] MEDS: PROTONIX INJ 40 MG VIAL IVP SCH ×2 (08:17→20:39)
[2022-02-20] MEDS ORDERED: MULTIVIT MIN IRON FA LUTEIN PO SCH (09:00)
[2022-02-20] MEDS ORDERED: [UNRECOGNIZED DRUG - OTHER] PO SCH (09:00)
[2022-02-20] MEDS ORDERED: IRON PO SCH (09:00)
[2022-02-20] MEDS: DILAUDID INJ IVP PRN ×3 (09:29→20:43)
[2022-02-20] MEDS: ZINC SULFATE PO SCH (09:30)
[2022-02-20] MEDS ORDERED: NS 1,000 ML IV 1,000 ML with MVI INJ (ADULT) 10 ML IV SCH ×2 (09:35)
[2022-02-20] MEDS: COMBIGAN EYE DROPS OP SCH ×2 (11:13→20:37)
[2022-02-20] MEDS: NS 1,000 ML IV 1,000 ML with MVI INJ (ADULT) 10 ML IV SCH ×8 (11:59→22:06)
[2022-02-20] MEDS ORDERED: MAALOX or MYLANTA PO PRN (13:27)
[2022-02-20] MEDS: PERCOCET TAB 5/325 MG PO PRN (14:04)
--- NOTE | 2022-02-20 14:55 | DR.H&P ---
H&P - History & Physical for Day of: H&P Date: 02/19/22 - Chief Complaint Chief Complaint: AMS, WEAKNESS, LOW BACK PAIN, ABDOMINAL PAIN - History of Present Illness History of Present Illness: IS A 81 YEAR OLD PATIENT OF OURS. HE [place] ESENTED TO THE HOSPITAL A DIRECT ADMISSION. PATIENT HAD SUDDEN ONSET OF ALTERED MENTAL STATUS AND WEAKNESS. HE ALSO COMPLAINED OF MODERATE LOW BACK PAIN AND UPPER QUADRANTS ABDOMINAL PAIN. PATIENT HAS HAD A RECENT DIAGNOSIS OF PANCREATIC AND COLON CANCER. HE WAS SCHEDULED FOR HIS FIRST RADIATION TREATMENT, JUST PRIOR TO SYMPTOMS STARTING. HIS PMH INCLUDES: ADENOCARCINOMA, A-FIB, CHOLECYSTECTOMY, AND HERNIA REPAIR. ON ARRIVAL, HIS VITALS WERE 97.9-88-16-99%-153/85. LABS WERE OBTAINED. RBC 4.28, HGB 10.6, HCT 32.2, SODIUM 127, CHLORIDE 94, GLUCOSE 138, AST 40, ALK PHOS 192, ALBUMIN 2.7. URINALYSIS WAS OBTAINED AND IS UNREMARKABLE. COVID-19 NEGATIVE. A URINE CULTURE WAS SET UP. A BRAIN CT WAS OBTAINED. IT REVEALED: No visible intracranial hemorrhage or overt acute infarct. No ventriculomegaly or midline shift. Basal cisterns appear patent. Globes intact. Included paranasal sinuses and mastoid air cells appear aerated. Skull base and calvarium appear intact. A CHEST XRAY WAS OBTAINED AND REVEALED: No acute chest disease demonstrated. HE WAS STARTED ON NORMAL WITH MVI AT 125ML/HR, PROTONIX 40MG IV BID, ZOFRAN 4MG IV Q4H PRN, PERCOCET 5/325MG 2 TABS Q6H PRN, TORADOL 30G IV Q6H, DILAUDID 2-4MG IV Q4H PRN PAIN. HIS HOME MEDICATIONS OF XANAX, ELIQUIS, VITAMIN D, COMBIGAN EYE DROPS, PEPCID, XALATAN EYE DROPS, TOPROL XL, AND ZINC WERE RESUMED. OTHERWISE, WE PLAN TO FOLLOW-UP WITH AM LABS AND CONTINUE TO MONITOR. TIME SPENT ON CLINICAL ASSESSMENT, REVIEWING LABS AND IMAGING, DECISION MAKING, AND DOCUMENTATION GREATER THAN 75 MINUTES. - Past Medical History Past Medical History: Coronary Artery Disease, GERD, Hypertension Additional Medical History: HERNIA REPAIR, CATARACTS REMOVED, A-FIB - Past Surgical History Surgical History: Cholecystectomy Additional Surgical History: INGUINAL HERNIA REPAIR - Family History Family Medical History: Cancer - Social History Alcohol Use: None Drug Use: Prescription Drugs - Medications Home Medications: soy Allergy (Unknown, Verified 01/22/22 07:24) STEROIDS Allergy (Unknown, Uncoded 01/22/22 07:24) - Review of Systems Constitutional: Weakness, Malaise Eyes: No Symptoms Reported ENT: No Symptoms Reported Respiratory: No Symptoms Reported Cardiovascular: No Symptoms Reported Gastrointestinal: Nausea, Abdominal Pain Genitourinary: No Symptoms Reported Musculoskeletal: Back Pain Skin: No Symptoms Reported Neurological: Weakness - Physical Exam Vital Signs: Temperature 97.6 F Pulse Rate [Left Brachial] 84 Respiratory Rate 18 Blood Pressure [Left Arm] 146/75 Blood Pressure [Right Arm] 169/83 Blood Pressure [Left Arm] 139/66 Blood Pressure 120/68 O2 Sat by Pulse Oximetry 100 Oriented: Not Oriented Eyes: Normal Ear: Normal Nose: Normal Throat: Normal Respiratory: Diminished Throughout Cardiovascular: Normal, Irregular : Normal Auscultation: Bowel Sounds: Normal Palpation: Normal Tenderness: RUQ, RLQ, Mild, Guarding Skin: Normal Musculoskeletal: Back:Lumbar, Tender Psychiatric: Normal Mood Description: Calm Affect: Normal Speech Pattern: Inappropriate - Assessment/Plan (1) Hyponatremia Status: Acute (2) Dehydration Status: Acute (3) AMS (altered mental status) Status: Acute (4) Generalized weakness Status: Acute - Allergies Allergies/Adverse Reactions: Allergies Allergy/AdvReac Type Severity Reaction Status Date / Time soy Allergy Unknown Verified 01/22/22 07:24 STEROIDS Allergy Unknown Uncoded 01/22/22 07:24
[2022-02-20] MEDS: XALATAN OP SCH (20:39)
[2022-02-20] MEDS: VITAMIN C PO SCH (20:40)
[2022-02-21] MEDS: PERCOCET TAB 5/325 MG PO PRN (04:05)
[2022-02-21 05:39] LABS: BASOPHILS # (AUTO) 0.1 X10^3/uL (0.0-0.1); BASOPHILS % (AUTO) 0.7 % (0.2-1.0); EOSINOPHILS # (AUTO) 0.7 x10^3/uL (0.0-0.2); EOSINOPHILS % (AUTO) 8.4 % (0.9-2.9); HEMATOCRIT 27.9 % (42.0-54.0); HEMOGLOBIN 9.3 g/dL (13.5-18.0); LYMPHOCYTES # (AUTO) 0.4 X10^3/uL (1.3-2.9); LYMPHOCYTES % (AUTO) 5.2 % (21.0-51.0); MEAN CORPUSCULAR HEMOGLOBIN 24.8 pg (27.0-34.0); MEAN CORPUSCULAR HGB CONC 33.3 g/dL (33.0-35.0); MEAN CORPUSCULAR VOLUME 74.4 fL (80.0-100.0); MEAN PLATELET VOLUME 8.3 fL (7.4-11.0); MONOCYTES # (AUTO) 0.8 x10^3/uL (0.3-0.8); MONOCYTES % (AUTO) 9.5 % (0.0-13.0); NEUTROPHILS # (AUTO) 6.4 x10^3/uL (2.2-4.8); NEUTROPHILS % (AUTO) 76.2 % (42.0-75.0); RED BLOOD COUNT 3.75 X10^6/uL (4.7-6.0); WHITE BLOOD COUNT 8.4 X10^3/uL (3.6-10.0)
[2022-02-21 05:52] LABS: ALANINE AMINOTRANSFERASE 34 Units/L (12-78); ALBUMIN 2.3 g/dL (3.4-5.0); ALKALINE PHOSPHATASE 163 Units/L (46-116); ASPARTATE AMINO TRANSFERASE 32 Units/L (15-37); BLOOD UREA NITROGEN 14 mg/dL (7-18); CALCIUM 7.8 mg/dL (8.5-10.1); CARBON DIOXIDE 22.8 mmol/L (21-32); CHLORIDE 103 mmol/L (98-107); COR CA(FOR HYPOALB) 9.2 mg/dL (8.5-10.1); COR NA(FOR HYPERGLY) 133 mmol/L (136-145); CREATININE 0.99 mg/dL (0.70-1.30); SODIUM 133 mmol/L (136-145); TOTAL PROTEIN 5.6 g/dL (6.4-8.2); eGFR NON BLACK RACES > 60 (>60)
[2022-02-21 06:09] LABS: ANISOCYTOSIS SLIGHT; HYPOCHROMASIA SLIGHT; MICROCYTOSIS SLIGHT; PLATELET MORPHOLOGY COMMENT NORMAL (NORMAL)
[2022-02-21] MEDS: XANAX PO SCH ×3 (06:43→21:02)
[2022-02-21] MEDS: NS 1,000 ML IV 1,000 ML with MVI INJ (ADULT) 10 ML IV SCH ×6 (08:08→22:05)
[2022-02-21] MEDS: TORADOL 30 MG VIAL IVP SCH ×3 (08:31→18:46)
[2022-02-21] MEDS: ELIQUIS PO SCH ×2 (08:32→20:50)
[2022-02-21] MEDS: VITAMIN D3 125 mcg (5,000 UNITS) PO SCH (08:33)
[2022-02-21] MEDS: ZINC SULFATE PO SCH (08:33)
[2022-02-21] MEDS: PROTONIX INJ 40 MG VIAL IVP SCH ×2 (08:39→20:45)
[2022-02-21] MEDS: PEPCID TAB 40 MG PO SCH ×2 (08:40→20:51)
[2022-02-21] MEDS ORDERED: PREDNISONE TAB 10 MG PO ONE (08:41)
[2022-02-21] MEDS: TOPROL XL PO SCH ×2 (08:41→20:52)
[2022-02-21] MEDS: PREDNISONE TAB 10 MG PO SCH (08:41)
[2022-02-21] MEDS: COMBIGAN EYE DROPS OP SCH ×2 (08:42→20:51)
[2022-02-21] MEDS: DILAUDID INJ IVP PRN ×2 (11:00→20:43)
[2022-02-21] MEDS: VITAMIN C PO SCH (20:51)
[2022-02-21] MEDS: XALATAN OP SCH (20:52)
[2022-02-22] MEDS: TORADOL 30 MG VIAL IVP SCH ×5 (00:42→23:44)
[2022-02-22] MEDS: DILAUDID INJ IVP PRN ×2 (02:24→08:34)
[2022-02-22 05:07] LABS: BASOPHILS # (AUTO) 0.1 X10^3/uL (0.0-0.1); BASOPHILS % (AUTO) 0.6 % (0.2-1.0); EOSINOPHILS # (AUTO) 0.3 x10^3/uL (0.0-0.2); EOSINOPHILS % (AUTO) 2.7 % (0.9-2.9); HEMATOCRIT 27.7 % (42.0-54.0); LYMPHOCYTES # (AUTO) 0.7 X10^3/uL (1.3-2.9); LYMPHOCYTES % (AUTO) 6.1 % (21.0-51.0); MEAN CORPUSCULAR HGB CONC 32.3 g/dL (33.0-35.0); MEAN CORPUSCULAR VOLUME 74.3 fL (80.0-100.0); MEAN PLATELET VOLUME 8.5 fL (7.4-11.0); MONOCYTES # (AUTO) 0.9 x10^3/uL (0.3-0.8); MONOCYTES % (AUTO) 8.2 % (0.0-13.0); NEUTROPHILS # (AUTO) 9.4 x10^3/uL (2.2-4.8); NEUTROPHILS % (AUTO) 82.4 % (42.0-75.0); RED BLOOD COUNT 3.73 X10^6/uL (4.7-6.0); RED CELL DISTRIBUTION WIDTH 17.3 % (11.6-16.5); WHITE BLOOD COUNT 11.4 X10^3/uL (3.6-10.0)
[2022-02-22 05:21] LABS: ALANINE AMINOTRANSFERASE 32 Units/L (12-78); ALBUMIN 2.3 g/dL (3.4-5.0); ALKALINE PHOSPHATASE 164 Units/L (46-116); ASPARTATE AMINO TRANSFERASE 33 Units/L (15-37); BLOOD UREA NITROGEN 13 mg/dL (7-18); CALCIUM 7.9 mg/dL (8.5-10.1); CARBON DIOXIDE 21.9 mmol/L (21-32); CHLORIDE 103 mmol/L (98-107); COR CA(FOR HYPOALB) 9.3 mg/dL (8.5-10.1); CREATININE 1.02 mg/dL (0.70-1.30); SODIUM 134 mmol/L (136-145); TOTAL PROTEIN 5.6 g/dL (6.4-8.2); eGFR NON BLACK RACES > 60 (>60)
[2022-02-22 05:28] LABS: ANISOCYTOSIS SLIGHT; HYPOCHROMASIA SLIGHT; MICROCYTOSIS SLIGHT; PLATELET MORPHOLOGY COMMENT NORMAL (NORMAL); TARGET CELLS PRESENT
[2022-02-22] MEDS: XANAX PO SCH ×2 (06:11→14:45)
[2022-02-22] MEDS: NS 1,000 ML IV 1,000 ML with MVI INJ (ADULT) 10 ML IV SCH ×6 (06:30→23:00)
[2022-02-22] MEDS: PROTONIX INJ 40 MG VIAL IVP SCH ×2 (08:34→20:53)
[2022-02-22] MEDS: ELIQUIS PO SCH ×2 (08:35→20:55)
[2022-02-22] MEDS: COMBIGAN EYE DROPS OP SCH ×2 (08:35→20:55)
[2022-02-22] MEDS: ZINC SULFATE PO SCH (08:35)
[2022-02-22] MEDS: TOPROL XL PO SCH ×2 (08:35→20:53)
[2022-02-22] MEDS: PEPCID TAB 40 MG PO SCH ×2 (08:36→20:54)
[2022-02-22] MEDS: PREDNISONE TAB 10 MG PO SCH ×3 (08:36→20:54)
[2022-02-22] MEDS: VITAMIN D3 125 mcg (5,000 UNITS) PO SCH (08:36)
[2022-02-22] MEDS: COLACE CAP 100 MG PO SCH ×2 (10:19→20:51)
[2022-02-22] MEDS: ALBUMIN HUMAN 25%- 100 ML 100 ML IV SCH (10:19)
[2022-02-22] MEDS: PERCOCET TAB 5/325 MG PO PRN (15:37)
[2022-02-22] MEDS ORDERED: DILAUDID ONE (20:30)
[2022-02-22] MEDS: XALATAN OP SCH (20:52)
[2022-02-22] MEDS: VITAMIN C PO SCH (20:52)
[2022-02-22] MEDS: DILAUDID PO PRN (20:56)
[2022-02-23] MEDS: XANAX PO SCH ×4 (00:42→22:03)
[2022-02-23] MEDS: PERCOCET TAB 5/325 MG PO PRN (01:50)
[2022-02-23 05:21] LABS: BASOPHILS % (AUTO) 0.3 % (0.2-1.0); EOSINOPHILS # (AUTO) 0.1 x10^3/uL (0.0-0.2); EOSINOPHILS % (AUTO) 0.5 % (0.9-2.9); HEMATOCRIT 28.1 % (42.0-54.0); HEMOGLOBIN 9.2 g/dL (13.5-18.0); LYMPHOCYTES # (AUTO) 0.6 X10^3/uL (1.3-2.9); LYMPHOCYTES % (AUTO) 4.4 % (21.0-51.0); MEAN CORPUSCULAR HEMOGLOBIN 24.4 pg (27.0-34.0); MEAN CORPUSCULAR HGB CONC 32.9 g/dL (33.0-35.0); MEAN CORPUSCULAR VOLUME 74.2 fL (80.0-100.0); MEAN PLATELET VOLUME 8.1 fL (7.4-11.0); MONOCYTES # (AUTO) 0.6 x10^3/uL (0.3-0.8); MONOCYTES % (AUTO) 4.6 % (0.0-13.0); NEUTROPHILS # (AUTO) 12.6 x10^3/uL (2.2-4.8); NEUTROPHILS % (AUTO) 90.2 % (42.0-75.0); RED BLOOD COUNT 3.78 X10^6/uL (4.7-6.0); RED CELL DISTRIBUTION WIDTH 17.4 % (11.6-16.5)
[2022-02-23] MEDS: TORADOL 30 MG VIAL IVP SCH ×4 (05:27→22:06)
[2022-02-23 05:35] LABS: ALANINE AMINOTRANSFERASE 33 Units/L (12-78); ALBUMIN 2.8 g/dL (3.4-5.0); ALKALINE PHOSPHATASE 169 Units/L (46-116); ASPARTATE AMINO TRANSFERASE 29 Units/L (15-37); BLOOD UREA NITROGEN 15 mg/dL (7-18); CARBON DIOXIDE 21.5 mmol/L (21-32); CHLORIDE 102 mmol/L (98-107); COR NA(FOR HYPERGLY) 134 mmol/L (136-145); CREATININE 0.94 mg/dL (0.70-1.30); SODIUM 133 mmol/L (136-145); TOTAL PROTEIN 6.2 g/dL (6.4-8.2); eGFR NON BLACK RACES > 60 (>60)
[2022-02-23] MEDS: NS 1,000 ML IV 1,000 ML with MVI INJ (ADULT) 10 ML IV SCH ×10 (06:33→22:00)
[2022-02-23] MEDS ORDERED: DILAUDID ONE ×3 (07:28→19:26)
[2022-02-23] MEDS: ALBUMIN HUMAN 25%- 100 ML 100 ML IV SCH ×3 (07:33→10:05)
[2022-02-23] MEDS: PROTONIX INJ 40 MG VIAL IVP SCH ×4 (07:41→22:07)
[2022-02-23] MEDS: ELIQUIS PO SCH ×3 (07:42→22:09)
[2022-02-23] MEDS: COLACE CAP 100 MG PO SCH ×3 (07:42→22:02)
[2022-02-23] MEDS: VITAMIN D3 125 mcg (5,000 UNITS) PO SCH (07:42)
[2022-02-23] MEDS: ZINC SULFATE PO SCH ×2 (07:42→10:05)
[2022-02-23] MEDS: TOPROL XL PO SCH ×3 (07:42→22:07)
[2022-02-23] MEDS: PEPCID TAB 40 MG PO SCH ×3 (07:43→22:08)
[2022-02-23] MEDS: PREDNISONE TAB 10 MG PO SCH ×3 (07:43→22:08)
[2022-02-23] MEDS: DILAUDID PO PRN ×3 (07:44→19:29)
[2022-02-23] MEDS: COMBIGAN EYE DROPS OP SCH ×2 (07:45→22:05)
[2022-02-23] MEDS: MILK OF MAGNESIA PO SCH ×2 (11:53→22:08)
[2022-02-23] MEDS ORDERED: NS 100 ML IV 100 ML ONE (12:57)
[2022-02-23] MEDS ORDERED: MORPHINE SULFATE INJ 2 MG INJ IVP ONE (15:56)
--- NOTE | 2022-02-23 16:18 | CT ---
HISTORYabd pain, metastatic diseaseSTUDYCT abdomen pelvis with IV contrastCOMPARISONCT 01/14/2022TECHNIQUEMultiple axial images of the abdomen and pelvis were obtained from the lung bases to the pubic symphysis after the administration of IV contrast. Dose reduction techniques including Automated Exposure Control (AEC) and adjustment of mA and kV were utilized.FINDINGSThe visualized portions of the lung bases reveal persistent small nodules. These have likely worsened since prior study. For example, in the left lower lobe there is a 9 mm nodule that previously measured 6 mm. Furthermore, there are abnormal interstitial and septal densities that have worsened since prior study. This could be noncardiogenic pulmonary edema or interstitial spread of malignancy. There are new small pleural effusions, right greater than left.Multiple hepatic masses are probable metastatic disease. The masses appears slightly smaller in size. Largest mass in the left lobe measures 2.0 cm versus 2.3 cm previously. Calcified granuloma is seen in the spleen.Prior cholecystectomy. Biliary ductal prominence has slightly increased from prior study. Common bile duct measures 1.4 cm in diameter today compared to 1.0 cm previously.There is an abnormal appearance of the region of the head and uncinate process of the pancreas. 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 Primary pancreatic malignancy would be less likely. The mass has increased in size since prior study. It measures 5.5 x 2.9 cm compared to 2.7 x 2.2 cm previously.The adrenal glands appear normal.Stable 1.1 cm likely simple cyst is seen in the posterior mid right kidney with other very tiny right renal cysts suspected. Left kidney appears normal. Ureters and bladder appear normal.Diverticula are seen in the sigmoid colon and descending colon. No evidence of diverticulitis. There is an area of likely circumferential wall thickening in the cecum near the ileocecal valve. This could be due to underdistention but a mass is not excluded. Extending from the region of the ileocecal valve into the mesentery to the level of the pancreas there is lobulated abnormal soft tissue density that is probably direct spread of malignancy or adamaris metastases. This appearance is unchanged. Normal appendix. No evidence of bowel obstruction.No abnormalities are seen of the reproductive organs.Abdominal aorta is normal in size.Low-density probably malignant lymph nodes are seen in the periportal region and retroperitoneum but these are very small. These are similar to prior study.There is mild ascites in the abdomen and pelvis.No acute bony abnormality is seen. Moderate spondylosis is seen at L4-5.IMPRESSIONIncrease in size of the mass in the region of the head of the pancreas. This may be spread of malignancy into the pancreas or adjacent lymph nodes rather than primary pancreatic malignancy. There is increasing prominence of the biliary ducts likely due to obstruction.There is wall thickening seen in the colon near the ileocecal valve that is concerning for colon cancer. There is direct spread of malignancy into the pericecal mesentery and extending superiorly to the mass in the region of the pancreas, similar to prior study.Possible slight improvement of metastases in the liver.Worsened appearance of the lung bases with slight enlargement of nodules and worsening interstitial and septal densities. The nodules are worrisome for metastatic disease and the septal and interstitial densities could be pulmonary edema or interstitial spread of malignancy. No suggestion of CHF.Electronically signed by: Scott Hawkins (February 23, 2022 16:17:55)
[2022-02-23] MEDS ORDERED: DILAUDID INJ IVP PRN (17:28)
--- NOTE | 2022-02-23 20:52 | PCM.PROG ---
Progress Note - Progress Note for Day of Date of Exam: 02/21/22 - Subjective Subjective: WAS ADMITTED INPATIENT STATUS FOR TREATMENT OF HYPONATREMIA, DEHYDRATION, AMS, AND GENERALIZED WEAKNESS. HE HAS A HISTORY OF METASTATIC CANCER. THERE IS INVOLVEMENT OF THE PANCREAS, LIVER, COLON, SPINE AND POSSIBLY THE LUNGS. HE HAS HAD INTRACTABLE PAIN OF THE BACK AND ABDOMEN FOR THE PAST SEVERAL DAYS. HIS SPOUSE REPORTS THAT HE HAS ALSO BEEN ANXIOUS. XANAX HELPS WITH ANXIOUSNESS, BUT DOES NOT COMPLETELY RELIEVE IT. ON EXAMINATION, HEART IS REGULAR IN RATE AND RHYTHM. BILATERAL LUNGS ARE NOTED WITH DIMINISHED LUNG SOUNDS THROUGHOUT. ABDOMEN IS NOTED WITH MILD, DIFFUSE TENDERNESS OT PALPATION. TENDERNESS NOTED TO THORACIC AND LUMBAR SPINE. NO UPPER OR LOWER EXTREMITY NOT ED. HIS VITALS THIS MORNING ARE: 97.7-74-18-98%-165/90. LABS WERE OBTAINED. WBC 8.4, RBC 3.75, HGB 9.3, HCT 27.9, SODIUM 133, POTASSIUM 4.3, CHLORIDE 103, BUN 14, CREATININE 0.99, GLUCOSE 113, CALCIUM 7.8, ALK PHOS 163, TOTAL PROTEIN 5.6, ALBUMIN 2.3. HE IS CURRENTLY ON NORMAL WITH MVI AT 125ML/HR, PROTONIX 40MG IV BID, ZOFRAN 4MG IV Q4H PRN, PERCOCET 5/325MG 2 TABS Q6H PRN, TORADOL 30G IV Q6H, DILAUDID 2-4MG IV Q4H PRN PAIN. HIS HOME MEDICATIONS OF XANAX, ELIQUIS, VITAMIN D, COMBIGAN EYE DROPS, PEPCID, XALATAN EYE DROPS, TOPROL XL, AND ZINC WERE RESUMED. TODAY, WE WILL ALL PREDNISONE 10MG PO DAILY. OTHERWISE, WE WILL CONTINUE WITH CURRENT PLAN OF CARE. WE PLAN TO FOLLOW-UP WITH AM LABS AND CONTINUE TO MONITOR. TIME SPENT ON CLINICAL ASSESSMENT, REVIEWING LABS AND IMAGING, DECISION MAKING, AND DOCUMENTATION GREATER THAN 45 MINUTES. - Past Medical Family Social History Past Med/Fam/Surg Hx: No changes since H&P Allergies: Allergies soy Allergy (Unknown, Verified 01/22/22 07:24) STEROIDS Allergy (Unknown, Uncoded 01/22/22 07:24) - Review of Systems ROS: No change since H&P - Vital Signs and I&O's Vital Signs: Temperature 98.3 F Pulse Rate [Left Brachial] 73 Respiratory Rate 20 Blood Pressure [Left Arm] 141/72 Blood Pressure [Right Arm] 170/81 Blood Pressure [Left Arm] 139/66 Blood Pressure 120/68 O2 Sat by Pulse Oximetry 97 Intake and Output: Intake & Output 02/21/22 02/22/22 02/23/22 02/24/22 11:59 11:59 11:59 11:59 Intake Total 2400 / 2400 4631 / 4631 650 / 650 240 / 240 Output Total 300 / 300 Balance 2100 / 2100 4631 / 4631 650 / 650 240 / 240 - Physical Exam Oriented: Person, Place Eyes: Normal Ear: Normal Nose: Normal Throat: Normal Respiratory: Diminished Cardiovascular: Normal : Normal Auscultation: Bowel Sounds: Normal Palpation: Normal Tenderness: RUQ, RLQ, Mild, Guarding Skin: Normal Musculoskeletal: Back:Thoracic, Back:Lumbar, Tender Psychiatric: Anxiety Mood Description: Anxious Affect: Anxious, Normal Speech Pattern: Clear - Laboratory and Diagnostics Result Diagrams: 02/23/22 04:38 02/23/22 04:38 Labs: 02/19/22 13:25 Urine,Clean Catch Urine Culture - Final Laboratory WBC 14.0 X10^3/uL (3.6-10.0) H 02/23/22 04:38 RBC 3.78 X10^6/uL (4.7-6.0) L 02/23/22 04:38 Hgb 9.2 g/dL (13.5-18.0) L 02/23/22 04:38 Hct 28.1 % (42.0-54.0) L 02/23/22 04:38 MCV 74.2 fL (80.0-100.0) L 02/23/22 04:38 MCH 24.4 pg (27.0-34.0) L 02/23/22 04:38 MCHC 32.9 g/dL (33.0-35.0) L 02/23/22 04:38 RDW 17.4 % (11.6-16.5) H 02/23/22 04:38 Plt Count 412 X10^3/uL (150.0-450.0) 02/23/22 04:38 Plt Count Comment Adequate (ADEQUATE) 02/22/22 04:03 MPV 8.1 fL (7.4-11.0) 02/23/22 04:38 Neut % (Auto) 90.2 % (42.0-75.0) H 02/23/22 04:38 Lymph % (Auto) 4.4 % (21.0-51.0) L 02/23/22 04:38 [place] % (Auto) 4.6 % (0.0-13.0) 02/23/22 04:38 Eos % (Auto) 0.5 % (0.9-2.9) L 02/23/22 04:38 Baso % (Auto) 0.3 % (0.2-1.0) 02/23/22 04:38 Neut # (Auto) 12.6 x10^3/uL (2.2-4.8) H 02/23/22 04:38 Lymph # (Auto) 0.6 X10^3/uL (1.3-2.9) L 02/23/22 04:38 [place] # (Auto) 0.6 x10^3/uL (0.3-0.8) 02/23/22 04:38 Eos # (Auto) 0.1 x10^3/uL (0.0-0.2) 02/23/22 04:38 Baso # (Auto) 0.0 X10^3/uL (0.0-0.1) 02/23/22 04:38 Absolute Nucleated RBC 0.0 /100WBC 02/23/22 04:38 Plt Morphology Comment Normal (NORMAL) 02/22/22 04:03 RBC Morphology Abnormal (NORMAL) 02/22/22 04:03 Hypochromasia Slight A 02/22/22 04:03 Anisocytosis Slight A 02/22/22 04:03 Microcytosis Slight A 02/22/22 04:03 Target Cells Present 02/22/22 04:03 Sodium 133 mmol/L (136-145) L 02/23/22 04:38 Corrected Sodium 134 mmol/L (136-145) L 02/23/22 04:38 Potassium 4.4 mmol/L (3.5-5.1) 02/23/22 04:38 Chloride 102 mmol/L (98-107) 02/23/22 04:38 Carbon Dioxide 21.5 mmol/L (21-32) 02/23/22 04:38 BUN 15 mg/dL (7-18) 02/23/22 04:38 Creatinine 0.94 mg/dL (0.70-1.30) 02/23/22 04:38 Est GFR (MDRD) Af Amer > 60 (>60) 02/23/22 04:38 Est GFR (MDRD) Non-Af > 60 (>60) 02/23/22 04:38 Glucose 128 mg/dL (65-99) H 02/23/22 04:38 Calcium 8.0 mg/dL (8.5-10.1) L 02/23/22 04:38 Corrected Calcium 9.0 mg/dL (8.5-10.1) 02/23/22 04:38 Total Bilirubin 0.80 mg/dL (0.2-1.0) 02/23/22 04:38 AST 29 Units/L (15-37) 02/23/22 04:38 ALT 33 Units/L (12-78) 02/23/22 04:38 Alkaline Phosphatase 169 Units/L (46-116) H 02/23/22 04:38 Total Protein 6.2 g/dL (6.4-8.2) L 02/23/22 04:38 Albumin 2.8 g/dL (3.4-5.0) L 02/23/22 04:38 Globulin 3.4 g/dL (2.5-4.5) 02/23/22 04:38 Albumin/Globulin Ratio 0.8 Ratio (1.1-2.1) L 02/23/22 04:38 Specimen Type Clean catch urine 02/19/22 13:25 Urine Color Yellow (YELLOW) 02/19/22 13:25 Urine Appearance Clear (CLEAR) 02/19/22 13:25 Urine pH 6.0 (5.0 - 8.0) 02/19/22 13:25 Ur Specific [place] 1.015 (1.000-1.030) 02/19/22 13:25 Urine Protein 2+ (NEGATIVE) 02/19/22 13:25 Urine Glucose (UA) Negative (NEGATIVE) 02/19/22 13:25 Urine Ketones Negative (NEGATIVE) 02/19/22 13:25 Urine Blood Negative (NEGATIVE) 02/19/22 13:25 Urine Nitrite Negative (NEGATIVE) 02/19/22 13:25 Urine Bilirubin Negative (NEGATIVE) 02/19/22 13:25 Urine Urobilinogen 1+ (NORMAL) 02/19/22 13:25 Ur Leukocyte Esterase Negative (NEGATIVE) 02/19/22 13:25 Urine RBC None seen /HPF (0-3) 02/19/22 13:25 Urine WBC 0-2 /HPF (0-5) 02/19/22 13:25 Ur Squamous Epith Cells Rare /HPF (NEGATIVE) 02/19/22 13:25 Urine Bacteria Trace /HPF (NEGATIVE) 02/19/22 13:25 Ur Culture Indicated? No/not indicated 02/19/22 13:25 SARS-CoV-2 (PCR) Negative (NEGATIVE) 02/19/22 11:50 - Plan (1) Hyponatremia Status: Acute Plan: MVI AT 125ML/HR, PROTONIX 40MG IV BID, ZOFRAN 4MG IV Q4H PRN, PERCOCET 5/325MG 2 TABS Q6H PRN, TORADOL 30G IV Q6H, DILAUDID 2-4MG IV Q4H PRN PAIN, PREDNISONE 10MG PO DAILY. 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 (3) Dehydration Status: Acute (4) AMS (altered mental status) Status: Acute Qualifiers: Altered mental status type: transient alteration of awareness Qualified Code(s): R40.4 - Transient alteration of awareness (5) Generalized weakness Status: Acute (6) Intractable pain Status: Acute (7) HTN (hypertension) Status: Chronic Qualifiers: Hypertension type: primary hypertension Qualified Code(s): I10 - Essential (primary) hypertension (8) GERD (gastroesophageal reflux disease) Status: Chronic Qualifiers: Esophagitis presence: esophagitis presence not specified Qualified Code(s): K21.9 - Gastro-esophageal reflux disease without esophagitis
[2022-02-23] MEDS: CHECK PATCH XX SCH (21:00)
--- NOTE | 2022-02-23 21:02 | PCM.PROG ---
Progress Note - Progress Note for Day of Date of Exam: 02/22/22 - Subjective Subjective: WAS ADMITTED INPATIENT STATUS FOR TREATMENT OF HYPONATREMIA, DEHYDRATION, AMS, AND GENERALIZED WEAKNESS. HE HAS A HISTORY OF METASTATIC CANCER. THERE IS INVOLVEMENT OF THE PANCREAS, LIVER, COLON, SPINE AND POSSIBLY THE LUNGS. HE HAS HAD INTRACTABLE PAIN OF THE BACK AND ABDOMEN FOR THE PAST SEVERAL DAYS. PAIN IS PERSISTENT AND HE HAS NOT HAD SIGNIFICANT IMPROVEMENT SINCE YESTERDAY. ON EXAMINATION, HEART IS REGULAR IN RATE AND RHYTHM. BILATERAL LUNGS ARE NOTED WITH DIMINISHED LUNG SOUNDS THROUGHOUT. ABDOMEN IS NOTED WITH MILD, DIFFUSE TENDERNESS OT PALPATION. TENDERNESS NOTED TO THORACIC AND LUMBAR SPINE. NO UPPER OR LOWER EXTREMITY NOTED. HIS VITALS THIS MORNING ARE: 97.7 -74-18-98%-165/90. LABS WERE OBTAINED. WBC 11.4, RBC 3.73, HGB 9.0, HCT 27.7, SODIUM 134, POTASSIUM 4.3, CHLORIDE 103, BUN 13, CREATININE 1.02, GLUCOSE 107, CALCIUM 7.9, AST 33, ALT 32, ALK PHOS 164, TOTAL PROTEIN 5.6, ALBUMIN 2.3. HE IS CURRENTLY ON NORMAL WITH MVI AT 125ML/HR, PROTONIX 40MG IV BID, ZOFRAN 4MG IV Q4H PRN, PERCOCET 5/325MG 2 TABS Q6H PRN, TORADOL 30G IV Q6H, DILAUDID 2-4MG IV Q4H PRN PAIN, PREDNISONE 10MG PO DAILY. HIS HOME MEDICATIONS OF XANAX, ELIQUIS, VITAMIN D, COMBIGAN EYE DROPS, PEPCID, XALATAN EYE DROPS, TOPROL XL, AND ZINC WERE RESUMED. TODAY, WE WILL ADD ALBUMIN 25% IV DAILY, INCREASE PREDNISONE TO 10MG BID, AND INCREASE DILAUDID TO 4MG PO Q4H PRN. OTHERWISE, WE WILL CONTINUE WITH CURRENT PLAN OF CARE. WE PLAN TO FOLLOW-UP WITH AM LABS AND CONTINUE TO MONITOR. TIME SPENT ON CLINICAL ASSESSMENT, REVIEWING LABS AND IMAGING, DECISION MAKING, AND DOCUMENTATION GREATER THAN 45 MINUTES. - Past Medical Family Social History Past Med/Fam/Surg Hx: No changes since H&P Allergies: Allergies soy Allergy (Unknown, Verified 01/22/22 07:24) STEROIDS Allergy (Unknown, Uncoded 01/22/22 07:24) - Review of Systems ROS: No change since H&P - Vital Signs and I&O's Vital Signs: Temperature 98.3 F Pulse Rate [Left Brachial] 73 Respiratory Rate 20 Blood Pressure [Left Arm] 141/72 Blood Pressure [Right Arm] 170/81 Blood Pressure [Left Arm] 139/66 Blood Pressure 120/68 O2 Sat by Pulse Oximetry 97 Intake and Output: Intake & Output 02/21/22 02/22/22 02/23/22 02/24/22 11:59 11:59 11:59 11:59 Intake Total 2400 / 2400 4631 / 4631 650 / 650 240 / 240 Output Total 300 / 300 Balance 2100 / 2100 4631 / 4631 650 / 650 240 / 240 - Physical Exam Oriented: Person, Place Eyes: Normal Ear: Normal Nose: Normal Throat: Normal Respiratory: Diminished Cardiovascular: Normal : Normal Auscultation: Bowel Sounds: Normal, Absent Tenderness: RUQ, RLQ, Mild, Guarding Skin: Normal Musculoskeletal: Back:Thoracic, Back:Lumbar, Tender Psychiatric: Anxiety Mood Description: Anxious Affect: Anxious, Normal Speech Pattern: Clear - Laboratory and Diagnostics Result Diagrams: 02/23/22 04:38 02/23/22 04:38 Labs: 02/19/22 13:25 Urine,Clean Catch Urine Culture - Final Laboratory WBC 14.0 X10^3/uL (3.6-10.0) H 02/23/22 04:38 RBC 3.78 X10^6/uL (4.7-6.0) L 02/23/22 04:38 Hgb 9.2 g/dL (13.5-18.0) L 02/23/22 04:38 Hct 28.1 % (42.0-54.0) L 02/23/22 04:38 MCV 74.2 fL (80.0-100.0) L 02/23/22 04:38 MCH 24.4 pg (27.0-34.0) L 02/23/22 04:38 MCHC 32.9 g/dL (33.0-35.0) L 02/23/22 04:38 RDW 17.4 % (11.6-16.5) H 02/23/22 04:38 Plt Count 412 X10^3/uL (150.0-450.0) 02/23/22 04:38 Plt Count Comment Adequate (ADEQUATE) 02/22/22 04:03 MPV 8.1 fL (7.4-11.0) 02/23/22 04:38 Neut % (Auto) 90.2 % (42.0-75.0) H 02/23/22 04:38 Lymph % (Auto) 4.4 % (21.0-51.0) L 02/23/22 04:38 [place] % (Auto) 4.6 % (0.0-13.0) 02/23/22 04:38 Eos % (Auto) 0.5 % (0.9-2.9) L 02/23/22 04:38 Baso % (Auto) 0.3 % (0.2-1.0) 02/23/22 04:38 Neut # (Auto) 12.6 x10^3/uL (2.2-4.8) H 02/23/22 04:38 Lymph # (Auto) 0.6 X10^3/uL (1.3-2.9) L 02/23/22 04:38 [place] # (Auto) 0.6 x10^3/uL (0.3-0.8) 02/23/22 04:38 Eos # (Auto) 0.1 x10^3/uL (0.0-0.2) 02/23/22 04:38 Baso # (Auto) 0.0 X10^3/uL (0.0-0.1) 02/23/22 04:38 Absolute Nucleated RBC 0.0 /100WBC 02/23/22 04:38 Plt Morphology Comment Normal (NORMAL) 02/22/22 04:03 RBC Morphology Abnormal (NORMAL) 02/22/22 04:03 Hypochromasia Slight A 02/22/22 04:03 Anisocytosis Slight A 02/22/22 04:03 Microcytosis Slight A 02/22/22 04:03 Target Cells Present 02/22/22 04:03 Sodium 133 mmol/L (136-145) L 02/23/22 04:38 Corrected Sodium 134 mmol/L (136-145) L 02/23/22 04:38 Potassium 4.4 mmol/L (3.5-5.1) 02/23/22 04:38 Chloride 102 mmol/L (98-107) 02/23/22 04:38 Carbon Dioxide 21.5 mmol/L (21-32) 02/23/22 04:38 BUN 15 mg/dL (7-18) 02/23/22 04:38 Creatinine 0.94 mg/dL (0.70-1.30) 02/23/22 04:38 Est GFR (MDRD) Af Amer > 60 (>60) 02/23/22 04:38 Est GFR (MDRD) Non-Af > 60 (>60) 02/23/22 04:38 Glucose 128 mg/dL (65-99) H 02/23/22 04:38 Calcium 8.0 mg/dL (8.5-10.1) L 02/23/22 04:38 Corrected Calcium 9.0 mg/dL (8.5-10.1) 02/23/22 04:38 Total Bilirubin 0.80 mg/dL (0.2-1.0) 02/23/22 04:38 AST 29 Units/L (15-37) 02/23/22 04:38 ALT 33 Units/L (12-78) 02/23/22 04:38 Alkaline Phosphatase 169 Units/L (46-116) H 02/23/22 04:38 Total Protein 6.2 g/dL (6.4-8.2) L 02/23/22 04:38 Albumin 2.8 g/dL (3.4-5.0) L 02/23/22 04:38 Globulin 3.4 g/dL (2.5-4.5) 02/23/22 04:38 Albumin/Globulin Ratio 0.8 Ratio (1.1-2.1) L 02/23/22 04:38 Specimen Type Clean catch urine 02/19/22 13:25 Urine Color Yellow (YELLOW) 02/19/22 13:25 Urine Appearance Clear (CLEAR) 02/19/22 13:25 Urine pH 6.0 (5.0 - 8.0) 02/19/22 13:25 Ur Specific [place] 1.015 (1.000-1.030) 02/19/22 13:25 Urine Protein 2+ (NEGATIVE) 02/19/22 13:25 Urine Glucose (UA) Negative (NEGATIVE) 02/19/22 13:25 Urine Ketones Negative (NEGATIVE) 02/19/22 13:25 Urine Blood Negative (NEGATIVE) 02/19/22 13:25 Urine Nitrite Negative (NEGATIVE) 02/19/22 13:25 Urine Bilirubin Negative (NEGATIVE) 02/19/22 13:25 Urine Urobilinogen 1+ (NORMAL) 02/19/22 13:25 Ur Leukocyte Esterase Negative (NEGATIVE) 02/19/22 13:25 Urine RBC None seen /HPF (0-3) 02/19/22 13:25 Urine WBC 0-2 /HPF (0-5) 02/19/22 13:25 Ur Squamous Epith Cells Rare /HPF (NEGATIVE) 02/19/22 13:25 Urine Bacteria Trace /HPF (NEGATIVE) 02/19/22 13:25 Ur Culture Indicated? No/not indicated 02/19/22 13:25 SARS-CoV-2 (PCR) Negative (NEGATIVE) 02/19/22 11:50 - Plan (1) Hyponatremia Status: Acute Plan: MVI AT 125ML/HR, PROTONIX 40MG IV BID, ZOFRAN 4MG IV Q4H PRN, PERCOCET 5/325MG 2 TABS Q6H PRN, TORADOL 30G IV Q6H, DILAUDID 4MG PO Q4H PRN PAIN, PREDNISONE 10MG PO BID, ALBUMIN 25% IV DAILY. 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 (3) Dehydration Status: Acute (4) AMS (altered mental status) Status: Acute Qualifiers: Altered mental status type: transient alteration of awareness Qualified Code(s): R40.4 - Transient alteration of awareness (5) Generalized weakness Status: Acute (6) Intractable pain Status: Acute (7) HTN (hypertension) Status: Chronic Qualifiers: Hypertension type: primary hypertension Qualified Code(s): I10 - Essential (primary) hypertension (8) GERD (gastroesophageal reflux disease) Status: Chronic Qualifiers: Esophagitis presence: esophagitis presence not specified Qualified Code(s): K21.9 - Gastro-esophageal reflux disease without esophagitis
--- NOTE | 2022-02-23 21:32 | PCM.PROG ---
Progress Note - Progress Note for Day of Date of Exam: 02/23/22 - Subjective Subjective: WAS ADMITTED INPATIENT STATUS FOR TREATMENT OF HYPONATREMIA, DEHYDRATION, AMS, AND GENERALIZED WEAKNESS. HE HAS A HISTORY OF METASTATIC CANCER. THERE IS INVOLVEMENT OF THE PANCREAS, LIVER, COLON, SPINE AND POSSIBLY THE LUNGS. HE HAS HAD INTRACTABLE PAIN OF THE BACK AND ABDOMEN FOR THE PAST SEVERAL DAYS. HE REPORTS THAT PAIN IS WORSE THIS MORNING. PAIN MEDICATIONS THAT HE IS CURRENTLY RECEIVING HAVE ONLY PROVIDED ONLY MINIMAL RELIEF OF PAIN. HE REPORTS INCREASED ABDOMINAL PAIN TODAY. HE DENIES A BOWEL MOVEMENT IN SEVERAL DAYS. ON EXAMINATION, HEART IS REGULAR IN RATE AND RHYTHM. BILATERAL LUNGS ARE NOTED WITH DIMINISHED LUNG SOUNDS THROUGHOUT. ABDOMEN IS NOTED WITH MILD, DIFFUSE TENDERNESS OT PALPATION. TENDERNESS NOTED TO THORACIC AND LUMBAR SPINE. NO UPPER OR LOWER EXTREMITY NOTED. HIS VITALS THIS MORNING ARE: 98.4-81-18-98%-158/96. LABS WERE OBTAINED. WBC 14.0, RBC 3.78, HGB 9.2, HCT 28.1, PLT COUNT 412, SODIUM 133, POTASSIUM 4.4, CHLORIDE 102, BUN 15, CREATINIEN 0.94, GLUCOSE 128, CALCIUM 8.0, AST 29, ALT 33, ALK PHOS 169, TOTAL PROTEIN 6.2, ALBUMIN 2.8. HE IS CURRENTLY ON NORMAL WITH MVI AT 125ML/HR, ALBUMIN 25% IV DAILY, PROTONIX 40MG IV BID, ZOFRAN 4MG IV Q4H PRN, PERCOCET 5/325MG 2 TABS Q6H PRN, TORADOL 30G IV Q6H, DILAUDID 4MG PO Q4H PRN PAIN, PREDNISONE 10MG PO BID. HIS HOME MEDICATIONS OF XANAX, ELIQUIS, VITAMIN D, COMBIGAN EYE DROPS, PEPCID, XALATAN EYE DROPS, TOPROL XL, AND ZINC WERE RESUMED. TODAY, WE WILL ADD A [place] 50MCG/HR TD PATCH, MIRALAX 17G PO DAILY, MILK OF MAGNESIA 30ML PO BID, COLACE 100MG PO BID. WE WILL DISCONTINUE THE PERCOCET. WE WILL OBTAIN AN ABDOMEN/PELVIS CT WITH CONTRAST TODAY. OTHERWISE, WE WILL CONTINUE WITH CURRENT PLAN OF CARE. WE PLAN TO FOLLOW-UP WITH AM LABS AND CONTINUE TO MONITOR. TIME SPENT ON CLINICAL ASSESSMENT, REVIEWING LABS AND IMAGING, DECISION MAKING, AND DOCUMENTATION GREATER THAN 45 MINUTES. - Past Medical Family Social History Past Med/Fam/Surg Hx: No changes since H&P Allergies: Allergies soy Allergy (Unknown, Verified 01/22/22 07:24) STEROIDS Allergy (Unknown, Uncoded 01/22/22 07:24) - Review of Systems ROS: No change since H&P - Vital Signs and I&O's Vital Signs: Temperature 98.3 F Pulse Rate [Left Brachial] 73 Respiratory Rate 20 Blood Pressure [Left Arm] 141/72 Blood Pressure [Right Arm] 170/81 Blood Pressure [Left Arm] 139/66 Blood Pressure 120/68 O2 Sat by Pulse Oximetry 97 Intake and Output: Intake & Output 02/21/22 02/22/22 02/23/22 02/24/22 11:59 11:59 11:59 11:59 Intake Total 2400 / 2400 4631 / 4631 650 / 650 240 / 240 Output Total 300 / 300 Balance 2100 / 2100 4631 / 4631 650 / 650 240 / 240 - Physical Exam Oriented: Person, Place Eyes: Normal Ear: Normal Nose: Normal Throat: Normal Respiratory: Diminished Cardiovascular: Normal : Normal Auscultation: Bowel Sounds: Decreased Palpation: Normal Tenderness: Diffuse, Mild, Guarding Skin: Normal Musculoskeletal: Back:Thoracic, Back:Lumbar, Tender Psychiatric: Anxiety Mood Description: Anxious Affect: Anxious, Normal Speech Pattern: Clear - Laboratory and Diagnostics Result Diagrams: 02/23/22 04:38 02/23/22 04:38 Labs: 02/19/22 13:25 Urine,Clean Catch Urine Culture - Final Laboratory WBC 14.0 X10^3/uL (3.6-10.0) H 02/23/22 04:38 RBC 3.78 X10^6/uL (4.7-6.0) L 02/23/22 04:38 Hgb 9.2 g/dL (13.5-18.0) L 02/23/22 04:38 Hct 28.1 % (42.0-54.0) L 02/23/22 04:38 MCV 74.2 fL (80.0-100.0) L 02/23/22 04:38 MCH 24.4 pg (27.0-34.0) L 02/23/22 04:38 MCHC 32.9 g/dL (33.0-35.0) L 02/23/22 04:38 RDW 17.4 % (11.6-16.5) H 02/23/22 04:38 Plt Count 412 X10^3/uL (150.0-450.0) 02/23/22 04:38 Plt Count Comment Adequate (ADEQUATE) 02/22/22 04:03 MPV 8.1 fL (7.4-11.0) 02/23/22 04:38 Neut % (Auto) 90.2 % (42.0-75.0) H 02/23/22 04:38 Lymph % (Auto) 4.4 % (21.0-51.0) L 02/23/22 04:38 [place] % (Auto) 4.6 % (0.0-13.0) 02/23/22 04:38 Eos % (Auto) 0.5 % (0.9-2.9) L 02/23/22 04:38 Baso % (Auto) 0.3 % (0.2-1.0) 02/23/22 04:38 Neut # (Auto) 12.6 x10^3/uL (2.2-4.8) H 02/23/22 04:38 Lymph # (Auto) 0.6 X10^3/uL (1.3-2.9) L 02/23/22 04:38 [place] # (Auto) 0.6 x10^3/uL (0.3-0.8) 02/23/22 04:38 Eos # (Auto) 0.1 x10^3/uL (0.0-0.2) 02/23/22 04:38 Baso # (Auto) 0.0 X10^3/uL (0.0-0.1) 02/23/22 04:38 Absolute Nucleated RBC 0.0 /100WBC 02/23/22 04:38 Plt Morphology Comment Normal (NORMAL) 02/22/22 04:03 RBC Morphology Abnormal (NORMAL) 02/22/22 04:03 Hypochromasia Slight A 02/22/22 04:03 Anisocytosis Slight A 02/22/22 04:03 Microcytosis Slight A 02/22/22 04:03 Target Cells Present 02/22/22 04:03 Sodium 133 mmol/L (136-145) L 02/23/22 04:38 Corrected Sodium 134 mmol/L (136-145) L 02/23/22 04:38 Potassium 4.4 mmol/L (3.5-5.1) 02/23/22 04:38 Chloride 102 mmol/L (98-107) 02/23/22 04:38 Carbon Dioxide 21.5 mmol/L (21-32) 02/23/22 04:38 BUN 15 mg/dL (7-18) 02/23/22 04:38 Creatinine 0.94 mg/dL (0.70-1.30) 02/23/22 04:38 Est GFR (MDRD) Af Amer > 60 (>60) 02/23/22 04:38 Est GFR (MDRD) Non-Af > 60 (>60) 02/23/22 04:38 Glucose 128 mg/dL (65-99) H 02/23/22 04:38 Calcium 8.0 mg/dL (8.5-10.1) L 02/23/22 04:38 Corrected Calcium 9.0 mg/dL (8.5-10.1) 02/23/22 04:38 Total Bilirubin 0.80 mg/dL (0.2-1.0) 02/23/22 04:38 AST 29 Units/L (15-37) 02/23/22 04:38 ALT 33 Units/L (12-78) 02/23/22 04:38 Alkaline Phosphatase 169 Units/L (46-116) H 02/23/22 04:38 Total Protein 6.2 g/dL (6.4-8.2) L 02/23/22 04:38 Albumin 2.8 g/dL (3.4-5.0) L 02/23/22 04:38 Globulin 3.4 g/dL (2.5-4.5) 02/23/22 04:38 Albumin/Globulin Ratio 0.8 Ratio (1.1-2.1) L 02/23/22 04:38 Specimen Type Clean catch urine 02/19/22 13:25 Urine Color Yellow (YELLOW) 02/19/22 13:25 Urine Appearance Clear (CLEAR) 02/19/22 13:25 Urine pH 6.0 (5.0 - 8.0) 02/19/22 13:25 Ur Specific [place] 1.015 (1.000-1.030) 02/19/22 13:25 Urine Protein 2+ (NEGATIVE) 02/19/22 13:25 Urine Glucose (UA) Negative (NEGATIVE) 02/19/22 13:25 Urine Ketones Negative (NEGATIVE) 02/19/22 13:25 Urine Blood Negative (NEGATIVE) 02/19/22 13:25 Urine Nitrite Negative (NEGATIVE) 02/19/22 13:25 Urine Bilirubin Negative (NEGATIVE) 02/19/22 13:25 Urine Urobilinogen 1+ (NORMAL) 02/19/22 13:25 Ur Leukocyte Esterase Negative (NEGATIVE) 02/19/22 13:25 Urine RBC None seen /HPF (0-3) 02/19/22 13:25 Urine WBC 0-2 /HPF (0-5) 02/19/22 13:25 Ur Squamous Epith Cells Rare /HPF (NEGATIVE) 02/19/22 13:25 Urine Bacteria Trace /HPF (NEGATIVE) 02/19/22 13:25 Ur Culture Indicated? No/not indicated 02/19/22 13:25 SARS-CoV-2 (PCR) Negative (NEGATIVE) 02/19/22 11:50 - Plan (1) Hyponatremia Status: Acute Plan: MVI AT 125ML/HR, PROTONIX 40MG IV BID, ZOFRAN 4MG IV Q4H PRN, DURAGESIC 50MCG/HR TD PATCH, TORADOL 30G IV Q6H, DILAUDID 4MG PO Q4H PRN PAIN, PREDNISONE 10MG PO BID, ALBUMIN 25% IV DAILY, MIRALAX DAILY, COLACE 100MG PO BID, MILK OF MAGNESIA 30ML PO BID. 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 (3) Abdominal pain Status: Acute Qualifiers: Abdominal location: generalized Qualified Code(s): R10.84 - Generalized abdominal pain (4) Dehydration Status: Acute (5) AMS (altered mental status) Status: Acute Qualifiers: Altered mental status type: transient alteration of awareness Qualified Code(s): R40.4 - Transient alteration of awareness (6) Generalized weakness Status: Acute (7) Intractable pain Status: Acute (8) HTN (hypertension) Status: Chronic Qualifiers: Hypertension type: primary hypertension Qualified Code(s): I10 - Essential (primary) hypertension (9) GERD (gastroesophageal reflux disease) Status: Chronic Qualifiers: Esophagitis presence: esophagitis presence not specified Qualified Code(s): K21.9 - Gastro-esophageal reflux disease without esophagitis
[2022-02-23] MEDS: XALATAN OP SCH (22:06)
[2022-02-23] MEDS: VITAMIN C PO SCH (22:06)
[2022-02-23] MEDS: MIRALAX POWDER (1 DOSE 17 G) PO SCH (22:08)
[2022-02-24] MEDS ORDERED: DILAUDID ONE ×3 (00:24→22:05)
[2022-02-24] MEDS: DILAUDID PO PRN ×3 (00:31→22:12)
[2022-02-24] MEDS: TORADOL 30 MG VIAL IVP SCH ×2 (05:18→11:31)
[2022-02-24] MEDS: NS 1,000 ML IV 1,000 ML with MVI INJ (ADULT) 10 ML IV SCH ×10 (05:18→22:15)
[2022-02-24] MEDS: XANAX PO SCH ×3 (05:19→22:11)
[2022-02-24 06:03] LABS: BASOPHILS # (AUTO) 0.1 X10^3/uL (0.0-0.1); BASOPHILS % (AUTO) 0.5 % (0.2-1.0); EOSINOPHILS # (AUTO) 0.3 x10^3/uL (0.0-0.2); EOSINOPHILS % (AUTO) 1.7 % (0.9-2.9); HEMATOCRIT 28.8 % (42.0-54.0); HEMOGLOBIN 9.4 g/dL (13.5-18.0); LYMPHOCYTES # (AUTO) 0.6 X10^3/uL (1.3-2.9); LYMPHOCYTES % (AUTO) 3.4 % (21.0-51.0); MEAN CORPUSCULAR HEMOGLOBIN 24.4 pg (27.0-34.0); MEAN CORPUSCULAR HGB CONC 32.6 g/dL (33.0-35.0); MEAN CORPUSCULAR VOLUME 74.8 fL (80.0-100.0); MEAN PLATELET VOLUME 8.2 fL (7.4-11.0); MONOCYTES # (AUTO) 1.2 x10^3/uL (0.3-0.8); MONOCYTES % (AUTO) 7.2 % (0.0-13.0); NEUTROPHILS # (AUTO) 14.2 x10^3/uL (2.2-4.8); NEUTROPHILS % (AUTO) 87.2 % (42.0-75.0); RED BLOOD COUNT 3.84 X10^6/uL (4.7-6.0); RED CELL DISTRIBUTION WIDTH 17.7 % (11.6-16.5); WHITE BLOOD COUNT 16.3 X10^3/uL (3.6-10.0)
[2022-02-24 06:14] LABS: ALANINE AMINOTRANSFERASE 34 Units/L (12-78); ALBUMIN 2.9 g/dL (3.4-5.0); ALKALINE PHOSPHATASE 168 Units/L (46-116); ASPARTATE AMINO TRANSFERASE 33 Units/L (15-37); BLOOD UREA NITROGEN 12 mg/dL (7-18); CARBON DIOXIDE 23.1 mmol/L (21-32); CHLORIDE 102 mmol/L (98-107); COR CA(FOR HYPOALB) 8.9 mg/dL (8.5-10.1); COR NA(FOR HYPERGLY) 133 mmol/L (136-145); CREATININE 0.94 mg/dL (0.70-1.30); SODIUM 133 mmol/L (136-145); TOTAL PROTEIN 6.2 g/dL (6.4-8.2); eGFR NON BLACK RACES > 60 (>60)
[2022-02-24 06:41] LABS: ANISOCYTOSIS SLIGHT; HYPOCHROMASIA SLIGHT; MICROCYTOSIS SLIGHT; PLATELET MORPHOLOGY COMMENT NORMAL (NORMAL); TARGET CELLS PRESENT
[2022-02-24 07:05] LABS: BAND NEUTROPHILS % 2 % (0-10); HYPOCHROMASIA SLIGHT; MICROCYTOSIS SLIGHT; PLATELET MORPHOLOGY COMMENT NORMAL (NORMAL); TARGET CELLS PRESENT
[2022-02-24] MEDS: ALBUMIN HUMAN 25%- 100 ML 100 ML IV SCH (09:12)
[2022-02-24] MEDS: ZINC SULFATE PO SCH (09:14)
[2022-02-24] MEDS: PEPCID TAB 40 MG PO SCH ×2 (09:14→22:14)
[2022-02-24] MEDS: COLACE CAP 100 MG PO SCH ×2 (09:15→22:10)
[2022-02-24] MEDS: PROTONIX INJ 40 MG VIAL IVP SCH ×2 (09:16→22:12)
[2022-02-24] MEDS: CHECK PATCH XX SCH ×2 (09:17→22:16)
[2022-02-24] MEDS: PREDNISONE TAB 10 MG PO SCH ×2 (09:18→22:13)
[2022-02-24] MEDS: COMBIGAN EYE DROPS OP SCH ×2 (09:18→22:15)
[2022-02-24] MEDS: ELIQUIS PO SCH ×2 (09:18→22:14)
[2022-02-24] MEDS: MILK OF MAGNESIA PO SCH ×2 (09:19→22:14)
[2022-02-24] MEDS: VITAMIN D3 125 mcg (5,000 UNITS) PO SCH (09:19)
[2022-02-24] MEDS: TOPROL XL PO SCH ×2 (09:19→22:13)
[2022-02-24] MEDS ORDERED: LOMOTIL PO PRN (17:16)
[2022-02-24] MEDS: XALATAN OP SCH (22:11)
[2022-02-24] MEDS: VITAMIN C PO SCH (22:11)
[2022-02-24] MEDS: MIRALAX POWDER (1 DOSE 17 G) PO SCH (22:14)
[2022-02-25] MEDS ORDERED: DILAUDID ONE (05:20)
[2022-02-25] MEDS: DILAUDID PO PRN (05:39)
[2022-02-25] MEDS: XANAX PO SCH (05:40)
[2022-02-25] MEDS: NS 1,000 ML IV 1,000 ML with MVI INJ (ADULT) 10 ML IV SCH ×2 (06:01)
[2022-02-25 06:17] LABS: BASOPHILS # (AUTO) 0.1 X10^3/uL (0.0-0.1); BASOPHILS % (AUTO) 0.4 % (0.2-1.0); EOSINOPHILS # (AUTO) 0.1 x10^3/uL (0.0-0.2); EOSINOPHILS % (AUTO) 0.7 % (0.9-2.9); HEMATOCRIT 27.7 % (42.0-54.0); HEMOGLOBIN 8.9 g/dL (13.5-18.0); LYMPHOCYTES # (AUTO) 0.4 X10^3/uL (1.3-2.9); LYMPHOCYTES % (AUTO) 2.3 % (21.0-51.0); MEAN CORPUSCULAR HEMOGLOBIN 24.2 pg (27.0-34.0); MEAN CORPUSCULAR VOLUME 75.6 fL (80.0-100.0); MEAN PLATELET VOLUME 8.4 fL (7.4-11.0); MONOCYTES % (AUTO) 6.7 % (0.0-13.0); NEUTROPHILS # (AUTO) 13.8 x10^3/uL (2.2-4.8); NEUTROPHILS % (AUTO) 89.9 % (42.0-75.0); RED BLOOD COUNT 3.66 X10^6/uL (4.7-6.0); RED CELL DISTRIBUTION WIDTH 17.8 % (11.6-16.5); WHITE BLOOD COUNT 15.4 X10^3/uL (3.6-10.0)
[2022-02-25 06:19] LABS: ALANINE AMINOTRANSFERASE 41 Units/L (12-78); ALBUMIN 3.1 g/dL (3.4-5.0); ALKALINE PHOSPHATASE 157 Units/L (46-116); ASPARTATE AMINO TRANSFERASE 34 Units/L (15-37); BLOOD UREA NITROGEN 12 mg/dL (7-18); CALCIUM 8.1 mg/dL (8.5-10.1); CARBON DIOXIDE 22.1 mmol/L (21-32); CHLORIDE 104 mmol/L (98-107); COR CA(FOR HYPOALB) 8.8 mg/dL (8.5-10.1); COR NA(FOR HYPERGLY) 137 mmol/L (136-145); CREATININE 0.85 mg/dL (0.70-1.30); SODIUM 136 mmol/L (136-145); TOTAL PROTEIN 6.1 g/dL (6.4-8.2); eGFR NON BLACK RACES > 60 (>60)
[2022-02-25] MEDS: ALBUMIN HUMAN 25%- 100 ML 100 ML IV SCH (08:08)
[2022-02-25] MEDS: PROTONIX INJ 40 MG VIAL IVP SCH (08:09)
[2022-02-25] MEDS: ELIQUIS PO SCH (08:09)
[2022-02-25] MEDS: TOPROL XL PO SCH (08:10)
[2022-02-25] MEDS: COLACE CAP 100 MG PO SCH (08:10)
[2022-02-25] MEDS: ZINC SULFATE PO SCH (08:10)
[2022-02-25] MEDS: PREDNISONE TAB 10 MG PO SCH (08:10)
[2022-02-25] MEDS: CHECK PATCH XX SCH (08:11)
[2022-02-25] MEDS: MILK OF MAGNESIA PO SCH (08:11)
[2022-02-25] MEDS: PEPCID TAB 40 MG PO SCH (08:12)
[2022-02-25] MEDS: VITAMIN D3 125 mcg (5,000 UNITS) PO SCH (08:12)
[2022-02-25] MEDS: COMBIGAN EYE DROPS OP SCH (09:00)
[2022-02-25 12:32] VITALS: BP 139/71
== END 2022-02-25 13:20 | disposition home health service (06) | DRG 948 ==
LOC: MED/SURG → OBSVTOIN 11:28 → MED/SURG 02-20 14:46
PROVIDERS: ADMIT Internal Medicine; ATTEND Internal Medicine
DX: C78.89 Secondary malignant neoplasm of other digestive organs; C25.9 Malignant neoplasm of pancreas, unspecified; R53.1 Weakness; R41.82 Altered mental status, unspecified; K21.9 Gastro-esophageal reflux disease without esophagitis; M54.59 Other low back pain; Z79.01 Long term (current) use of anticoagulants; R06.02 Shortness of breath; E86.0 Dehydration; I25.10 Atherosclerotic heart disease of native coronary artery without angina pectoris; I48.91 Unspecified atrial fibrillation; C18.9 Malignant neoplasm of colon, unspecified; Z20.822 Contact with and (suspected) exposure to COVID-19; E87.1 Hypo-osmolality and hyponatremia; I10 Essential (primary) hypertension

== ENCOUNTER 2022-03-01 01:40 | Observation (INO) ==
[2022-03-01] MEDS ORDERED: BENADRYL INJ 50 MG VIAL IM ONE ×2 (02:20→10:10)
[2022-03-01] MEDS ORDERED: ATIVAN INJ 2 MG VIAL IM ONE ×2 (02:20→06:39)
[2022-03-01 02:26] VITALS: BMI 23.7
[2022-03-01] MEDS ORDERED: BENADRYL INJ 50 MG VIAL ONE (02:27)
[2022-03-01] MEDS ORDERED: ATIVAN INJ 2 MG VIAL ONE ×2 (02:28→06:35)
--- NOTE | 2022-03-01 02:53 | DR.PSYCH ---
HPI <EMILIANO RACHEL - Last Filed: 03/02/22 01:56> Time Seen Time Seen by Provider: 03/01/22 02:50 PCP Primary Care Physician: SIRISHA CASTRO Complaint Chief Complaint Doctors Comments: PATIENT HERE VIA EMS AND LAW ENFORCEMENT OFFICERS REPORTING HE WAS HALLUCINATINGABOUT ANIMALS, DEMONS AND CULT CHURCHES. DR. CASTRO AUTHORIZED HALDOL 5MG IM TO BE GIVEN TO PATIENT. HE WAS THEN TRANSPORTED TO ER. PATIENT HAVE END STAGE PANCREATIC CANCER. HE IS ON MEDICATIONS FOR CHRONIC PAIN. HE TAKES DILAUDID 8MG PO Q4HRS PRN AND FENTANYL PATCH 50MCG Q3DAYS. HE IS NOT ANSWERING QUESTIONS FULLY AT THIS TIME. Chief Complaint:: LAW ENFORCEMENT WAS CALLED OUT TO AMS AND PT REPORTS HE HAD A GUN HALLUCINATING ABOUT ANIMALS, DEMONS AND "CULT CHURCHES" PT WAS REFUSING TO COME INTO ER AND EMS CALLED DR. CASTRO AND PCP AND HE STATED TO GIVE 5MG IM TO PT. UPON ARRIVAL PT IS STILL CONFUSED. Self Treatment fo Chief Complaint: PT TAKES DILAUDID 8MG Q4HRS WELL A FENTANYL 50 MCG PATCH WHICH HE ARRIVED WITH ON RIGHT SHOULDER. COVID-19 Coronavirus risk:travel/contact w/high risk person: No Has patient experienced Coronavirus symptoms: No Reviewed Nurses Notes Review: Yes Source History Provided: Family Member Mode of Arrival Mode of Arrival: Wheelchair Timing Onset of Chief Complaint: 02/27/22 Came on: Suddenly Duration Duration: Constant Duration: Hours Context Presents With: Other (HALLUCINATIONS.) History of: Depression Medication Compliance: Yes Quality Hallucinations: Visual Severity Severity: Unable to care for self Associated signs and symptoms Intoxification: None PMH <EMILIANO RACHEL - Last Filed: 03/02/22 01:56> PMH Past Medical History: Yes Past Medical History: Hypertension Past Medical History Comment: PANCREATIC CANCER METS TO THE COLON AND LIVER. Past Surgical History: Yes Surgical History: Cholecystectomy Past Surgical History Comment: HERNIA REPAIR, CATARACT SURGERY. Family History History of Family Medical Conditions: No Family Medical History: Cancer Social History Alcohol Use: None Do you use any recreational Drugs:: No Lives With: Spouse Lives Where: Home Travel Risk Coronavirus risk:travel/contact w/high risk person: No Has patient experienced Coronavirus symptoms: No Infectious screening Have you traveled outside the country in the last 6 months?: No Isolation: Standard ROS <EMILIANO RACHEL - Last Filed: 03/02/22 01:56> Review of Systems Constitutional: No Symptoms Reported and See HPI; negative Fever, Weakness and Fatigue Eyes: No Symptoms Reported, See HPI and Diplopia; negative Blurred Vision ENTM: No Symptoms Reported and See HPI; negative Nose Discharge and Nose Congestion Respiratoy: No Symptoms Reported and See HPI; negative Moist Cough, Short of Breath and Wheezing Cardiovascular: No Symptoms Reported and See HPI; negative Chest Pain Gastrointestinal/Abdominal: No Symptoms Reported and See HPI; negative Abdominal Pain, Diarrhea and Vomiting Genitourinary: No Symptoms Reported and See HPI; negative Dysuria and Frequency Neurological: No Symptoms Reported; negative Headache, Weakness and Dizziness Musculoskeletal: No Symptoms Reported and See HPI Integumentary: No Symptoms Reported and See HPI Hematologic/Lymphatic: No Symptoms Reported and See HPI Endocrine: No Symptoms Reported and See HPI; negative Increased Thirst and Increased Urine Psychiatric: No Symptoms Reported and See HPI All Other Systems: Reviewed and Negative PE <EMILIANO RACHEL Last Filed: 03/02/22 01:56> Vitals Vitals: Temperature 97.4 F Pulse Rate [Apical] 89 Pulse Rate 113 Respiratory Rate 20 Blood Pressure [Left Arm] 145/75 Blood Pressure 213/104 O2 Sat by Pulse Oximetry 99 General Limitations: No Limitations General Appearance: Alert and In No Apparent Distress Head Head Exam: Normal Inspection Head Exam Physical: Other (NONE NOTED) Eyes Eye exam: Normal Appearance and PERRL; negative Scleral Icterus and Conjunctival Injection Pupils: Regular, Round: Bilateral and Reactive: Bilateral Sclera/Conjunctival: Normal Inspection: Bilateral ENT ENT Exam: Normal Exam, Normal Oropharynx, Normal External Ear Exam and TM's Normal Bilaterally Neck Neck Exam: Normal Inspection; negative Tenderness Chest Chest Inspection: Normal Inspection and Symmetric Chest Wall Rise; negative Tenderness Respiratory Respiratory Exam: Normal Lung Sounds Bilat and Accessory Muscle Use; negative Chest Wall Tenderness and Respiratory Distress Respiratory Exam: Bilateral: Clear to Auscultation Cardiovascular Cardiovascular Exam: Regular Rate and Irregular Rhythm Abdominal Exam Abdominal Exam: Normal Inspection, Normal Bowel Sounds and Soft; negative Tenderness Extremities Extremities Exam: Normal Inspection Back Back Exam: Normal Inspection; negative (R) CVA Tenderness and (L) CVA Tenderness Neurologic Neurological Exam: Alert; negative Motor Sensory Deficit Patient Oriented To: Person Speech: Fluid Speech Cranial Nerve Exam: Gag reflex (XI): Normal Motor Strength - LUE: 5/5 Motor Strength - RUE: 5/5 Motor Strength - LLE: 5/5 Motor Strength - RLE: 5/5 Upper Motor Neuron Exam: Babinski Sign: Normal Psychiatric Psychiatric Exam: Normal Affect and Normal Mood Expanded Psychiatric Exam: Poor Eye Contact Skin Skin Exam: Warm, Dry, Intact and Normal Color <RAPHAEL MJ - Last Filed: 03/01/22 09:29> Vitals Vitals: Temperature 97.4 F Pulse Rate [Apical] 89 Pulse Rate 113 Respiratory Rate 20 Blood Pressure [Left Arm] 145/75 Blood Pressure 213/104 O2 Sat by Pulse Oximetry 99 MDM <NADIYAJuanBrady RACHEL - Last Filed: 03/02/22 01:56> Differential Diagnosis Differential diagnosis: Depression (AGGITATION, HALLUCINATION, A FIB, END STAGE PANCREATIC CANCER.) COURSE <FOREIGNANASTASIA TEJINDER - Last Filed: 03/02/22 01:56> Treatment Treatment: SEE ORDERS DONE WHILE PATIENT IS IN ER. LABS AND EKG REPORTS DISCUSSED WITH JANET. PATIENT WILL BE ADMITTED BY DR. CASTRO. PATIENT SIGN OUT TO DR. BARKER AT 08:00AM. <YUEPOONAMRICKY MJ - Last Filed: 03/01/22 09:29> Treatment Treatment: This 82 y/o male was endorsed over to review the report of his pending Brain CT Scan and then to write admit orders for him if the Scan is normal. The Brain CT report was noted. Admit orders were written to be admitted to Dr. Castro's service. ROR <EMILIANO RACHEL - Last Filed: 03/02/22 01:56> Labs Reviewed Laboratory Results Reviewed?: Yes Result Diagrams: 03/01/22 03:00 03/01/22 03:00 Laboratory: WBC 18.0 X10^3/uL (3.6-10.0) H 03/01/22 03:00 RBC 3.81 X10^6/uL (4.7-6.0) L 03/01/22 03:00 Hgb 9.3 g/dL (13.5-18.0) L 03/01/22 03:00 Hct 28.4 % (42.0-54.0) L 03/01/22 03:00 MCV 74.6 fL (80.0-100.0) L 03/01/22 03:00 MCH 24.5 pg (27.0-34.0) L 03/01/22 03:00 MCHC 32.8 g/dL (33.0-35.0) L 03/01/22 03:00 RDW 18.7 % (11.6-16.5) H 03/01/22 03:00 Plt Count 499 X10^3/uL (150.0-450.0) H 03/01/22 03:00 Plt Count Comment Increased (ADEQUATE) 03/01/22 03:00 MPV 7.8 fL (7.4-11.0) 03/01/22 03:00 Neut % (Auto) 87.9 % (42.0-75.0) H 03/01/22 03:00 Lymph % (Auto) 1.6 % (21.0-51.0) L 03/01/22 03:00 Winn % (Auto) 10.1 % (0.0-13.0) 03/01/22 03:00 Eos % (Auto) 0.1 % (0.9-2.9) L 03/01/22 03:00 Baso % (Auto) 0.3 % (0.2-1.0) 03/01/22 03:00 Neut # (Auto) 15.8 x10^3/uL (2.2-4.8) H 03/01/22 03:00 Lymph # (Auto) 0.3 X10^3/uL (1.3-2.9) L 03/01/22 03:00 Winn # (Auto) 1.8 x10^3/uL (0.3-0.8) H 03/01/22 03:00 Eos # (Auto) 0.0 x10^3/uL (0.0-0.2) 03/01/22 03:00 Baso # (Auto) 0.1 X10^3/uL (0.0-0.1) 03/01/22 03:00 Absolute Nucleated RBC 0.0 /100WBC 03/01/22 03:00 Plt Morphology Comment Normal (NORMAL) 03/01/22 03:00 RBC Morphology Abnormal (NORMAL) 03/01/22 03:00 Hypochromasia 1+ A 03/01/22 03:00 Anisocytosis Slight A 03/01/22 03:00 Microcytosis Slight A 03/01/22 03:00 Target Cells Present 03/01/22 03:00 Schistocytes Present 03/01/22 03:00 Sodium 129 mmol/L (136-145) L 03/01/22 03:00 Corrected Sodium 130 mmol/L (136-145) L 03/01/22 03:00 Potassium 3.8 mmol/L (3.5-5.1) 03/01/22 03:00 Chloride 93 mmol/L (98-107) L 03/01/22 03:00 Carbon Dioxide 24.7 mmol/L (21-32) 03/01/22 03:00 BUN 18 mg/dL (7-18) 03/01/22 03:00 Creatinine 1.24 mg/dL (0.70-1.30) 03/01/22 03:00 Est GFR (MDRD) Af Amer > 60 (>60) 03/01/22 03:00 Est GFR (MDRD) Non-Af 59 (>60) 03/01/22 03:00 Glucose 158 mg/dL (65-99) H 03/01/22 03:00 Calcium 8.9 mg/dL (8.5-10.1) 03/01/22 03:00 Corrected Calcium TNP 03/01/22 03:00 Total Bilirubin 0.80 mg/dL (0.2-1.0) 03/01/22 03:00 AST 37 Units/L (15-37) 03/01/22 03:00 ALT 46 Units/L (12-78) 03/01/22 03:00 Alkaline Phosphatase 207 Units/L (46-116) H 03/01/22 03:00 Creatine Kinase 97 Units/L (39-308) 03/01/22 03:00 CK-MB (CK-2) 3.7 ng/mL (0-4.0) 03/01/22 03:00 CK/CKMB % Calc 3.8 % (<4) 03/01/22 03:00 Troponin I High Sens 15.0 ng/L (4.0-60.0) 03/01/22 03:00 Total Protein 7.0 g/dL (6.4-8.2) 03/01/22 03:00 Albumin 3.6 g/dL (3.4-5.0) 03/01/22 03:00 Globulin 3.4 g/dL (2.5-4.5) 03/01/22 03:00 Albumin/Globulin Ratio 1.1 Ratio (1.1-2.1) 03/01/22 03:00 Specimen Type Catherized urine 03/01/22 08:50 Urine Color Yellow (YELLOW) 03/01/22 08:50 Urine Appearance Clear (CLEAR) 03/01/22 08:50 Urine pH 7.0 (5.0 - 8.0) 03/01/22 08:50 Ur Specific [place] 1.010 (1.000-1.030) 03/01/22 08:50 Urine Protein Negative (NEGATIVE) 03/01/22 08:50 Urine Glucose (UA) Negative (NEGATIVE) 03/01/22 08:50 Urine Ketones Negative (NEGATIVE) 03/01/22 08:50 Urine Blood 2+ (NEGATIVE) 03/01/22 08:50 Urine Nitrite Negative (NEGATIVE) 03/01/22 08:50 Urine Bilirubin Negative (NEGATIVE) 03/01/22 08:50 Urine Urobilinogen Normal (NORMAL) 03/01/22 08:50 Ur Leukocyte Esterase Negative (NEGATIVE) 03/01/22 08:50 Urine RBC 0-2 /HPF (0-3) 03/01/22 08:50 Urine WBC None seen /HPF (0-5) 03/01/22 08:50 Ur Squamous Epith Cells Negative /HPF (NEGATIVE) 03/01/22 08:50 Urine Bacteria Negative /HPF (NEGATIVE) 03/01/22 08:50 Hyaline Casts Moderate /LPF (NEGATIVE) 03/01/22 04:14 Urine Mucus Few /HPF (NEGATIVE) 03/01/22 04:14 Ur Culture Indicated? No/not indicated 03/01/22 08:50 Salicylates < 2.8 mg/dL (2.8-20) L 03/01/22 03:00 Urine Opiates Screen Positive (NEG=<300) 03/01/22 04:14 Urine Methadone Screen Negative (NEG=<300) 03/01/22 04:14 Acetaminophen 0.0 ug/mL (10-30) L 03/01/22 03:00 Ur Barbiturates Screen Negative (NEG=<200) 03/01/22 04:14 Ur Phencyclidine Scrn Negative (NEG=<25) 03/01/22 04:14 Ur Amphetamines Screen Negative (NEG=<1000) 03/01/22 04:14 U Benzodiazepines Scrn Positive (NEG=<200) 03/01/22 04:14 Urine Cocaine Screen Negative (NEG=<300) 03/01/22 04:14 U Marijuana (THC) Screen Negative (NEG=<50) 03/01/22 04:14 Ethyl Alcohol mg/dL < 3 mg/dL (0-19.9) 03/01/22 03:00 SARS-CoV-2 (PCR) Negative (NEGATIVE) 03/01/22 08:28 XRAY XRAY Interpreted by: Radiologist (REPORT NOTED.) and Self EKG Rate: 102 [place]: Normal Rhythm: Afib (RATE 102;) Block: None Hypertrophy: None ST: Nonsp <ADEWUNMI SOBOWALE - Last Filed: 03/01/22 09:29> Labs Reviewed Laboratory: WBC 18.0 X10^3/uL (3.6-10.0) H 03/01/22 03:00 RBC 3.81 X10^6/uL (4.7-6.0) L 03/01/22 03:00 Hgb 9.3 g/dL (13.5-18.0) L 03/01/22 03:00 Hct 28.4 % (42.0-54.0) L 03/01/22 03:00 MCV 74.6 fL (80.0-100.0) L 03/01/22 03:00 MCH 24.5 pg (27.0-34.0) L 03/01/22 03:00 MCHC 32.8 g/dL (33.0-35.0) L 03/01/22 03:00 RDW 18.7 % (11.6-16.5) H 03/01/22 03:00 Plt Count 499 X10^3/uL (150.0-450.0) H 03/01/22 03:00 Plt Count Comment Increased (ADEQUATE) 03/01/22 03:00 MPV 7.8 fL (7.4-11.0) 03/01/22 03:00 Neut % (Auto) 87.9 % (42.0-75.0) H 03/01/22 03:00 Lymph % (Auto) 1.6 % (21.0-51.0) L 03/01/22 03:00 Winn % (Auto) 10.1 % (0.0-13.0) 03/01/22 03:00 Eos % (Auto) 0.1 % (0.9-2.9) L 03/01/22 03:00 Baso % (Auto) 0.3 % (0.2-1.0) 03/01/22 03:00 Neut # (Auto) 15.8 x10^3/uL (2.2-4.8) H 03/01/22 03:00 Lymph # (Auto) 0.3 X10^3/uL (1.3-2.9) L 03/01/22 03:00 Winn # (Auto) 1.8 x10^3/uL (0.3-0.8) H 03/01/22 03:00 Eos # (Auto) 0.0 x10^3/uL (0.0-0.2) 03/01/22 03:00 Baso # (Auto) 0.1 X10^3/uL (0.0-0.1) 03/01/22 03:00 Absolute Nucleated RBC 0.0 /100WBC 03/01/22 03:00 Plt Morphology Comment Normal (NORMAL) 03/01/22 03:00 RBC Morphology Abnormal (NORMAL) 03/01/22 03:00 Hypochromasia 1+ A 03/01/22 03:00 Anisocytosis Slight A 03/01/22 03:00 Microcytosis Slight A 03/01/22 03:00 Target Cells Present 03/01/22 03:00 Schistocytes Present 03/01/22 03:00 Sodium 129 mmol/L (136-145) L 03/01/22 03:00 Corrected Sodium 130 mmol/L (136-145) L 03/01/22 03:00 Potassium 3.8 mmol/L (3.5-5.1) 03/01/22 03:00 Chloride 93 mmol/L (98-107) L 03/01/22 03:00 Carbon Dioxide 24.7 mmol/L (21-32) 03/01/22 03:00 BUN 18 mg/dL (7-18) 03/01/22 03:00 Creatinine 1.24 mg/dL (0.70-1.30) 03/01/22 03:00 Est GFR (MDRD) Af Amer > 60 (>60) 03/01/22 03:00 Est GFR (MDRD) Non-Af 59 (>60) 03/01/22 03:00 Glucose 158 mg/dL (65-99) H 03/01/22 03:00 Calcium 8.9 mg/dL (8.5-10.1) 03/01/22 03:00 Corrected Calcium TNP 03/01/22 03:00 Total Bilirubin 0.80 mg/dL (0.2-1.0) 03/01/22 03:00 AST 37 Units/L (15-37) 03/01/22 03:00 ALT 46 Units/L (12-78) 03/01/22 03:00 Alkaline Phosphatase 207 Units/L (46-116) H 03/01/22 03:00 Creatine Kinase 97 Units/L (39-308) 03/01/22 03:00 CK-MB (CK-2) 3.7 ng/mL (0-4.0) 03/01/22 03:00 CK/CKMB % Calc 3.8 % (<4) 03/01/22 03:00 Troponin I High Sens 15.0 ng/L (4.0-60.0) 03/01/22 03:00 Total Protein 7.0 g/dL (6.4-8.2) 03/01/22 03:00 Albumin 3.6 g/dL (3.4-5.0) 03/01/22 03:00 Globulin 3.4 g/dL (2.5-4.5) 03/01/22 03:00 Albumin/Globulin Ratio 1.1 Ratio (1.1-2.1) 03/01/22 03:00 Specimen Type Catherized urine 03/01/22 08:50 Urine Color Yellow (YELLOW) 03/01/22 08:50 Urine Appearance Clear (CLEAR) 03/01/22 08:50 Urine pH 7.0 (5.0 - 8.0) 03/01/22 08:50 Ur Specific [place] 1.010 (1.000-1.030) 03/01/22 08:50 Urine Protein Negative (NEGATIVE) 03/01/22 08:50 Urine Glucose (UA) Negative (NEGATIVE) 03/01/22 08:50 Urine Ketones Negative (NEGATIVE) 03/01/22 08:50 Urine Blood 2+ (NEGATIVE) 03/01/22 08:50 Urine Nitrite Negative (NEGATIVE) 03/01/22 08:50 Urine Bilirubin Negative (NEGATIVE) 03/01/22 08:50 Urine Urobilinogen Normal (NORMAL) 03/01/22 08:50 Ur Leukocyte Esterase Negative (NEGATIVE) 03/01/22 08:50 Urine RBC 0-2 /HPF (0-3) 03/01/22 08:50 Urine WBC None seen /HPF (0-5) 03/01/22 08:50 Ur Squamous Epith Cells Negative /HPF (NEGATIVE) 03/01/22 08:50 Urine Bacteria Negative /HPF (NEGATIVE) 03/01/22 08:50 Hyaline Casts Moderate /LPF (NEGATIVE) 03/01/22 04:14 Urine Mucus Few /HPF (NEGATIVE) 03/01/22 04:14 Ur Culture Indicated? No/not indicated 03/01/22 08:50 Salicylates < 2.8 mg/dL (2.8-20) L 03/01/22 03:00 Urine Opiates Screen Positive (NEG=<300) 03/01/22 04:14 Urine Methadone Screen Negative (NEG=<300) 03/01/22 04:14 Acetaminophen 0.0 ug/mL (10-30) L 03/01/22 03:00 Ur Barbiturates Screen Negative (NEG=<200) 03/01/22 04:14 Ur Phencyclidine Scrn Negative (NEG=<25) 03/01/22 04:14 Ur Amphetamines Screen Negative (NEG=<1000) 03/01/22 04:14 U Benzodiazepines Scrn Positive (NEG=<200) 03/01/22 04:14 Urine Cocaine Screen Negative (NEG=<300) 03/01/22 04:14 U Marijuana (THC) Screen Negative (NEG=<50) 03/01/22 04:14 Ethyl Alcohol mg/dL < 3 mg/dL (0-19.9) 03/01/22 03:00 SARS-CoV-2 (PCR) Negative (NEGATIVE) 03/01/22 08:28 Opioid <KHADIJATU TEJINDER - Last Filed: 03/02/22 01:56> Opioid Risk Tool Age (Benjamin box if 16-45): No History of Preadolescent Sexual Abuse: No Total: 0 Total Score Risk Category: Low Risk Copyright: [employer] predicting aberrant behaviors <RAPHAEL WADSWORTH - Last Filed: 03/01/22 09:29> Opioid Risk Tool Total: 0 Total Score Risk Category: Low Risk <EMILIANO RACHEL - Last Filed: 03/02/22 01:56> Diagnosis Discharge Problem: Hallucinations, Agitation, Acute hyponatremia, Primary pancreatic cancer with metastasis to other site A-fib Qualifiers: Atrial fibrillation type: unspecified Qualified Code(s): I48.91 - Unspecified atrial fibrillation HTN (hypertension) Qualifiers: Hypertension type: primary hypertension Qualified Code(s): I10 - Essential (primary) hypertension GERD (gastroesophageal reflux disease) Qualifiers: Esophagitis presence: esophagitis presence not specified Qualified Code(s): K21.9 - Gastro-esophageal reflux disease without esophagitis <RAPHAEL SOB - Last Filed: 03/01/22 09:29> Additional Notes Additional Notes: Name: Maximilian CLARKE#: [id number]: [id number] : 1940Sex: MLocation: ER Order Number(s): [id number](s):BRAIN W/O CON Ordering Physician: EMILIANO RACHEL Primary Care: Sirisha Castro Service Date: 03/01/22 Service Time: 0759 HISTORY ams, hallucinations STUDY CT HEAD WITHOUT CONTRAST COMPARISON February 19, [address] of the head is performed from the base of the skull through the vertex WITHOUT contrast . Multiplaner reformats are generated from the original axial data. FINDINGS Portions of the exam are degraded by motion artifact.. Within limitations of the exam, there is no intracranial hemorrhage or extra-axial fluid collection. No mass effect, shift or edema. Moderate age related cortical volume loss is observed with commensurate ventricular dilatation. Senescent white matter changes are likely related to small vessel ischemic degeneration. There is no distinct large artery territorial infarction. Sinuses and mastoid air cells are predominantly clear. The calvarium is intact. IMPRESSION No acute intracranial abnormalities Chronic age related involutional changes of the brain parenchyma. Radiation dose reduction was achieved through individualized adjustment of kVP and/or mA, through adaptive statistical iterative reconstruction, and/or through automated tube current modulation. Electronically signed by: DIANA RAE (March 01, 2022 08:43:17) Report Electronically signed: 03/01/22 0844 CC: Emiliano Rachel
[2022-03-01 03:13] LABS: MEAN PLATELET VOLUME 7.8 fL (7.4-11.0)
[2022-03-01 03:17] LABS: BASOPHILS # (AUTO) 0.1 X10^3/uL (0.0-0.1); BASOPHILS % (AUTO) 0.3 % (0.2-1.0); EOSINOPHILS % (AUTO) 0.1 % (0.9-2.9); HEMATOCRIT 28.4 % (42.0-54.0); HEMOGLOBIN 9.3 g/dL (13.5-18.0); LYMPHOCYTES # (AUTO) 0.3 X10^3/uL (1.3-2.9); LYMPHOCYTES % (AUTO) 1.6 % (21.0-51.0); MEAN CORPUSCULAR HEMOGLOBIN 24.5 pg (27.0-34.0); MEAN CORPUSCULAR HGB CONC 32.8 g/dL (33.0-35.0); MEAN CORPUSCULAR VOLUME 74.6 fL (80.0-100.0); MONOCYTES # (AUTO) 1.8 x10^3/uL (0.3-0.8); MONOCYTES % (AUTO) 10.1 % (0.0-13.0); NEUTROPHILS # (AUTO) 15.8 x10^3/uL (2.2-4.8); NEUTROPHILS % (AUTO) 87.9 % (42.0-75.0); RED BLOOD COUNT 3.81 X10^6/uL (4.7-6.0); RED CELL DISTRIBUTION WIDTH 18.7 % (11.6-16.5)
[2022-03-01 03:25] LABS: SALICYLATE < 2.8 mg/dL (2.8-20)
[2022-03-01 03:32] LABS: ALANINE AMINOTRANSFERASE 46 Units/L (12-78); ALBUMIN 3.6 g/dL (3.4-5.0); ALKALINE PHOSPHATASE 207 Units/L (46-116); ASPARTATE AMINO TRANSFERASE 37 Units/L (15-37); BLOOD ALCOHOL < 3 mg/dL (0-19.9); BLOOD UREA NITROGEN 18 mg/dL (7-18); CALCIUM 8.9 mg/dL (8.5-10.1); CARBON DIOXIDE 24.7 mmol/L (21-32); CHLORIDE 93 mmol/L (98-107); CKMB % 3.8 % (<4); COR NA(FOR HYPERGLY) 130 mmol/L (136-145); CREATINE KINASE 97 Units/L (39-308); CREATINE KINASE MB 3.7 ng/mL (0-4.0); CREATININE 1.24 mg/dL (0.70-1.30); SODIUM 129 mmol/L (136-145); eGFR NON BLACK RACES 59 (>60)
[2022-03-01 03:39] LABS: ANISOCYTOSIS SLIGHT; HYPOCHROMASIA 1+; MICROCYTOSIS SLIGHT; PLATELET MORPHOLOGY COMMENT NORMAL (NORMAL); SCHISTOCYTES PRESENT; TARGET CELLS PRESENT
--- NOTE | 2022-03-01 04:16 | RAD ---
PROCEDURE: Chest X-ray 1 View .HISTORY: Dyspnea.TECHNIQUE: AP view.COMPARISON: 02/19/2022.TECHNICAL QUALITY: Satisfactory .FINDINGS:Normal size heart .Mediastinum and hilar regions show no masses or lymphadenopathy .Normal central vascularity .No pulmonary consolidation, masses, pleural fluid, or pneumothorax .No acute bony abnormality .Some gases distension of the stomach under the left hemidiaphragm.IMPRESSION:No active cardiopulmonary disease .Electronically signed by: Jesús Willams (March 01, 2022 04:15:39)
[2022-03-01 04:23] LABS: BILIRUBIN,URINE NEGATIVE (NEGATIVE); BLOOD/HEMOGLOBIN,URINE NEGATIVE (NEGATIVE); GLUCOSE, URINE NEGATIVE (NEGATIVE); KETONES,URINE NEGATIVE (NEGATIVE); LEUKOCYTE ESTERASE ,URINE NEGATIVE (NEGATIVE); NITRITES,URINE NEGATIVE (NEGATIVE); PROTEIN,URINE 2+ (NEGATIVE); UROBILINOGEN,URINE NORMAL (NORMAL)
[2022-03-01 04:24] LABS: APPEARANCE,URINE CLEAR (CLEAR); COLOR,URINE YELLOW (YELLOW)
[2022-03-01 04:33] LABS: RBC,URINE 0-2 /HPF (0-3)
[2022-03-01 04:34] LABS: BACTERIA,URINE TRACE /HPF (NEGATIVE); HYALINE CASTS, URINE MODERATE /LPF (NEGATIVE); SQUAMOUS EPITHELIAL CELL,UR RARE /HPF (NEGATIVE)
[2022-03-01] MEDS ORDERED: GEODON INJ IM ONE ×2 (05:37→06:00)
--- NOTE | 2022-03-01 08:44 | CT ---
HISTORYams, hallucinationsSTUDYCT HEAD WITHOUT CONTRASTCOMPARISONMay 2021TECHNIQUEAxial CT of the head is performed from the base of the skull through the vertex WITHOUT contrast . Multiplaner reformats are generated from the original axial data.FINDINGSPortions of the exam are degraded by motion artifact.. Within limitations of the exam, there is no intracranial hemorrhage or extra-axial fluid collection. No mass effect, shift or edema. Moderate age related cortical volume loss is observed with commensurate ventricular dilatation. Senescent white matter changes are likely related to small vessel ischemic degeneration. There is no distinct large artery territorial infarction. Sinuses and mastoid air cells are predominantly clear. The calvarium is intact.IMPRESSIONNo acute intracranial abnormalitiesChronic age related involutional changes of the brain parenchyma.Radiation dose reduction was achieved through individualized adjustment of kVP and/or mA, through adaptive statistical iterative reconstruction, and/or through automated tube current modulation.Electronically signed by: DIANA RAE (March 01, 2022 08:43:17)
[2022-03-01 09:11] LABS: BILIRUBIN,URINE NEGATIVE (NEGATIVE); BLOOD/HEMOGLOBIN,URINE 2+ (NEGATIVE); GLUCOSE, URINE NEGATIVE (NEGATIVE); KETONES,URINE NEGATIVE (NEGATIVE); LEUKOCYTE ESTERASE ,URINE NEGATIVE (NEGATIVE); NITRITES,URINE NEGATIVE (NEGATIVE); PROTEIN,URINE NEGATIVE (NEGATIVE); UROBILINOGEN,URINE NORMAL (NORMAL)
[2022-03-01 09:24] LABS: APPEARANCE,URINE CLEAR (CLEAR); COLOR,URINE YELLOW (YELLOW); RBC,URINE 0-2 /HPF (0-3)
[2022-03-01 09:25] LABS: BACTERIA,URINE NEGATIVE /HPF (NEGATIVE); SQUAMOUS EPITHELIAL CELL,UR NEGATIVE /HPF (NEGATIVE)
[2022-03-01] MEDS ORDERED: PROTONIX TAB 40 MG PO SCH (09:47)
[2022-03-01] MEDS ORDERED: ATIVAN INJ 2 MG VIAL IVP SCH (09:47)
[2022-03-01] MEDS ORDERED: VALIUM INJ IM PRN (10:08)
[2022-03-01] MEDS: COZAAR PO SCH (15:00)
[2022-03-01] MEDS: COGENTIN 2 MG IM SCH ×4 (15:01→21:21)
[2022-03-01] MEDS: DILAUDID PO SCH ×3 (15:01→16:56)
[2022-03-01] MEDS: HALDOL INJ IM SCH ×4 (15:03→21:05)
[2022-03-01] MEDS: TOPROL XL PO SCH (15:05)
[2022-03-01] MEDS: SINGULAIR TAB 10 MG PO SCH ×2 (15:05→15:06)
[2022-03-01] MEDS: NYSTATIN SUSP PO SCH ×4 (15:06→21:20)
[2022-03-01] MEDS: FLOMAX PO SCH (15:06)
[2022-03-01] MEDS: VALIUM INJ IVP PRN ×2 (16:30→23:11)
[2022-03-01] MEDS: NS 1,000 ML IV 1,000 ML IV SCH ×2 (17:58→22:35)
[2022-03-01] MEDS: DILAUDID INJ IVP PRN (18:13)
[2022-03-01] MEDS: PROTONIX INJ 40 MG VIAL IVP SCH (21:03)
[2022-03-01] MEDS: XALATAN OP SCH (21:21)
[2022-03-02] MEDS: HALDOL INJ IM SCH ×3 (00:31→08:25)
[2022-03-02] MEDS: COGENTIN 2 MG IM SCH ×4 (01:30→11:23)
[2022-03-02] MEDS: DILAUDID INJ IVP PRN (10:50)
[2022-03-02] MEDS ORDERED: DURAGESIC 75 mcg/HR PATCH TD SCH (11:00)
[2022-03-02] MEDS: SINGULAIR TAB 10 MG PO SCH (11:23)
[2022-03-02] MEDS: TOPROL XL PO SCH (11:24)
[2022-03-02] MEDS: COZAAR PO SCH (11:24)
[2022-03-02] MEDS: NS 1,000 ML IV 1,000 ML IV SCH ×2 (11:25→23:29)
[2022-03-02] MEDS: FLOMAX PO SCH (11:25)
[2022-03-02] MEDS: NYSTATIN SUSP PO SCH ×4 (11:26→21:03)
--- NOTE | 2022-03-02 11:43 | DR.H&P ---
H&P History & Physical for Day of: H&P Date: 03/02/22 Chief Complaint Chief Complaint: Hallucinations Altered mental status Allergies Allergies Allergy/AdvReac Type Severity Reaction Status Date / Time soy Allergy Unknown Verified 01/22/22 07:24 STEROIDS Allergy Unknown Uncoded 01/22/22 07:24 History of Present Illness History of Present Illness: PT IS A 82 YEAR OLD MALE WITH HISTORY OF END STAGE PANCREATIC CANCER ADMITTED FOR HAVING HALLUCINATIONS. PER REPORTS GIVEN, PT WAS HALLUCINATING ABOUT ANIMALS AND PEOPLE. HE WAS TRANSPORTED TO THE ER AND HAD RECEIVED HALDOL IM. HE IS CURRENTLY TAKING MEDCATIONS FOR CHRONIC PAIN, THAT INCLUDE DILAUDID 8MG PO Q4HRS PRN AND FENTANYL PATCH 50MCG Q3DAYS. HE IS NOT ANSWERING QUESTIONS FULLY AT THIS TIME AND IS REQUIRING RESTRAINTS. LABS/IMAGING: WBC 18, HGB 9.3, PLT 499, NA 130, K 3.8, CREATININE 1.24, GLUCOSE 158, UA NEGATIVE, UDS APPROPRIATE, COVID-19 NEGATIVE, CT HEAD No acute intracranial abnormalities. Chronic age related involutional changes of the brain parenchyma. CXR: No active cardiopulmonary disease. WILL RESTART HOME MEDICATIONS, INCLUDING PAIN MEDICATION AT THIS TIME. ORDER IM HALDOL AND CONGENT IN PRN. FOR ANXIETY PATIENT HAS VALIUM ORDERED. WILL CONITNUE TO CLOSELY MONITOR PATIENT AND FOLLOW UP LABS. Past Medical History Past Medical History: Hypertension Additional Medical History: HERNIA REPAIR, CATARACTS REMOVED, A-FIB Past Surgical History Surgical History: Cholecystectomy Additional Surgical History: INGUINAL HERNIA REPAIR Family History Family Medical History: Cancer Social History Does patient currently use any type of tobacco product: No Have you used tobacco products in the last 12 months: No Type of Tobacco Use: None Does any household member use tobacco: No Alcohol Use: None Drug Use: Prescription Drugs Medications Home Medications: soy Allergy (Unknown, Verified 01/22/22 07:24) STEROIDS Allergy (Unknown, Uncoded 01/22/22 07:24) CONTINUE taking the following medications alprazolam 0.5 mg PO BID 03/01/22 [History] azelastine 1 spray INTRANASAL DAILY 03/01/22 [History] capecitabine 500 mg PO BID 03/01/22 [History] clobetasol 1 applic TOPICAL BID 03/01/22 [History] fentanyl 50 mcg TRANSDERMAL Q72H 03/01/22 [History] hydromorphone 4 - 8 mg PO Q4H PRN 03/01/22 [History] latanoprost 1 drp OPHTHALMIC (EYE) QHS 03/01/22 [History] losartan 25 mg PO DAILY 03/01/22 [History] metoprolol succinate 37.5 mg PO DAILY 03/01/22 [History] montelukast 10 mg PO DAILY 03/01/22 [History] nystatin 5 ml PO QID 03/01/22 [History] pantoprazole 40 mg PO BID 03/01/22 [History] prednisone 10 mg PO BID 03/01/22 [History] tamsulosin 0.4 mg PO DAILY 03/01/22 [History] Labs Result Diagrams: 03/01/22 03:00 03/01/22 03:00 Labs: Laboratory WBC 18.0 X10^3/uL (3.6-10.0) H 03/01/22 03:00 RBC 3.81 X10^6/uL (4.7-6.0) L 03/01/22 03:00 Hgb 9.3 g/dL (13.5-18.0) L 03/01/22 03:00 Hct 28.4 % (42.0-54.0) L 03/01/22 03:00 MCV 74.6 fL (80.0-100.0) L 03/01/22 03:00 MCH 24.5 pg (27.0-34.0) L 03/01/22 03:00 MCHC 32.8 g/dL (33.0-35.0) L 03/01/22 03:00 RDW 18.7 % (11.6-16.5) H 03/01/22 03:00 Plt Count 499 X10^3/uL (150.0-450.0) H 03/01/22 03:00 Plt Count Comment Increased (ADEQUATE) 03/01/22 03:00 MPV 7.8 fL (7.4-11.0) 03/01/22 03:00 Neut % (Auto) 87.9 % (42.0-75.0) H 03/01/22 03:00 Lymph % (Auto) 1.6 % (21.0-51.0) L 03/01/22 03:00 [place] % (Auto) 10.1 % (0.0-13.0) 03/01/22 03:00 Eos % (Auto) 0.1 % (0.9-2.9) L 03/01/22 03:00 Baso % (Auto) 0.3 % (0.2-1.0) 03/01/22 03:00 Neut # (Auto) 15.8 x10^3/uL (2.2-4.8) H 03/01/22 03:00 Lymph # (Auto) 0.3 X10^3/uL (1.3-2.9) L 03/01/22 03:00 [place] # (Auto) 1.8 x10^3/uL (0.3-0.8) H 03/01/22 03:00 Eos # (Auto) 0.0 x10^3/uL (0.0-0.2) 03/01/22 03:00 Baso # (Auto) 0.1 X10^3/uL (0.0-0.1) 03/01/22 03:00 Absolute Nucleated RBC 0.0 /100WBC 03/01/22 03:00 Plt Morphology Comment Normal (NORMAL) 03/01/22 03:00 RBC Morphology Abnormal (NORMAL) 03/01/22 03:00 Hypochromasia 1+ A 03/01/22 03:00 Anisocytosis Slight A 03/01/22 03:00 Microcytosis Slight A 03/01/22 03:00 Target Cells Present 03/01/22 03:00 Schistocytes Present 03/01/22 03:00 Sodium 129 mmol/L (136-145) L 03/01/22 03:00 Corrected Sodium 130 mmol/L (136-145) L 03/01/22 03:00 Potassium 3.8 mmol/L (3.5-5.1) 03/01/22 03:00 Chloride 93 mmol/L (98-107) L 03/01/22 03:00 Carbon Dioxide 24.7 mmol/L (21-32) 03/01/22 03:00 BUN 18 mg/dL (7-18) 03/01/22 03:00 Creatinine 1.24 mg/dL (0.70-1.30) 03/01/22 03:00 Est GFR (MDRD) Af Amer > 60 (>60) 03/01/22 03:00 Est GFR (MDRD) Non-Af 59 (>60) 03/01/22 03:00 Glucose 158 mg/dL (65-99) H 03/01/22 03:00 Calcium 8.9 mg/dL (8.5-10.1) 03/01/22 03:00 Corrected Calcium TNP 03/01/22 03:00 Total Bilirubin 0.80 mg/dL (0.2-1.0) 03/01/22 03:00 AST 37 Units/L (15-37) 03/01/22 03:00 ALT 46 Units/L (12-78) 03/01/22 03:00 Alkaline Phosphatase 207 Units/L (46-116) H 03/01/22 03:00 Creatine Kinase 97 Units/L (39-308) 03/01/22 03:00 CK-MB (CK-2) 3.7 ng/mL (0-4.0) 03/01/22 03:00 CK/CKMB % Calc 3.8 % (<4) 03/01/22 03:00 Troponin I High Sens 15.0 ng/L (4.0-60.0) 03/01/22 03:00 Total Protein 7.0 g/dL (6.4-8.2) 03/01/22 03:00 Albumin 3.6 g/dL (3.4-5.0) 03/01/22 03:00 Globulin 3.4 g/dL (2.5-4.5) 03/01/22 03:00 Albumin/Globulin Ratio 1.1 Ratio (1.1-2.1) 03/01/22 03:00 Specimen Type Catherized urine 03/01/22 08:50 Urine Color Yellow (YELLOW) 03/01/22 08:50 Urine Appearance Clear (CLEAR) 03/01/22 08:50 Urine pH 7.0 (5.0 - 8.0) 03/01/22 08:50 Ur Specific [place] 1.010 (1.000-1.030) 03/01/22 08:50 Urine Protein Negative (NEGATIVE) 03/01/22 08:50 Urine Glucose (UA) Negative (NEGATIVE) 03/01/22 08:50 Urine Ketones Negative (NEGATIVE) 03/01/22 08:50 Urine Blood 2+ (NEGATIVE) 03/01/22 08:50 Urine Nitrite Negative (NEGATIVE) 03/01/22 08:50 Urine Bilirubin Negative (NEGATIVE) 03/01/22 08:50 Urine Urobilinogen Normal (NORMAL) 03/01/22 08:50 Ur Leukocyte Esterase Negative (NEGATIVE) 03/01/22 08:50 Urine RBC 0-2 /HPF (0-3) 03/01/22 08:50 Urine WBC None seen /HPF (0-5) 03/01/22 08:50 Ur Squamous Epith Cells Negative /HPF (NEGATIVE) 03/01/22 08:50 Urine Bacteria Negative /HPF (NEGATIVE) 03/01/22 08:50 Hyaline Casts Moderate /LPF (NEGATIVE) 03/01/22 04:14 Urine Mucus Few /HPF (NEGATIVE) 03/01/22 04:14 Ur Culture Indicated? No/not indicated 03/01/22 08:50 Salicylates < 2.8 mg/dL (2.8-20) L 03/01/22 03:00 Urine Opiates Screen Positive (NEG=<300) 03/01/22 04:14 Urine Methadone Screen Negative (NEG=<300) 03/01/22 04:14 Acetaminophen 0.0 ug/mL (10-30) L 03/01/22 03:00 Ur Barbiturates Screen Negative (NEG=<200) 03/01/22 04:14 Ur Phencyclidine Scrn Negative (NEG=<25) 03/01/22 04:14 Ur Amphetamines Screen Negative (NEG=<1000) 03/01/22 04:14 U Benzodiazepines Scrn Positive (NEG=<200) 03/01/22 04:14 Urine Cocaine Screen Negative (NEG=<300) 03/01/22 04:14 U Marijuana (THC) Screen Negative (NEG=<50) 03/01/22 04:14 Ethyl Alcohol mg/dL < 3 mg/dL (0-19.9) 03/01/22 03:00 SARS-CoV-2 (PCR) Negative (NEGATIVE) 03/01/22 08:28 Review of Systems Constitutional: Other (UNABLE TO ASSESS) Eyes: No Symptoms Reported ENT: No Symptoms Reported Respiratory: No Symptoms Reported Cardiovascular: No Symptoms Reported Gastrointestinal: No Symptoms Reported Genitourinary: No Symptoms Reported Musculoskeletal: No Symptoms Reported Skin: No Symptoms Reported Neurological: Confusion and Other Physical Exam Vital Signs: Temperature 97.4 F Pulse Rate [Apical] 89 Pulse Rate 113 Respiratory Rate 20 Blood Pressure [Left Arm] 145/75 Blood Pressure 213/104 O2 Sat by Pulse Oximetry 94 Oriented: Not Oriented Eyes: Normal Ear: Normal Nose: Normal Throat: Normal Respiratory: Clear Throughout Cardiovascular: Normal : Normal Auscultation: Bowel Sounds: Normal Palpation: Normal Tenderness: Normal Skin: Normal Musculoskeletal: Normal Psychiatric: Anxiety, Agitation and Other (HALLUCINATIONS) Assessment/Plan (1) Hallucinations: Status: Acute (2) Primary pancreatic cancer with metastasis to other site: Status: Acute Review H&P Reviewed: Yes Patient was examined?: Yes
[2022-03-02] MEDS: LOVENOX INJ 40 MG SYR SC SCH (11:45)
[2022-03-02] MEDS: PROTONIX INJ 40 MG VIAL IVP SCH ×2 (11:45→21:01)
[2022-03-02] MEDS ORDERED: COGENTIN 2 MG IM PRN (11:55)
[2022-03-02] MEDS ORDERED: HALDOL INJ IM PRN (11:55)
--- NOTE | 2022-03-02 12:04 | PCM.PROG ---
Progress Note Progress Note for Day of Date of Exam: 03/02/22 Subjective Subjective: PT IS A 82 YEAR OLD MALE ADMITTED FOR HALLUCINATIONS AND FAILURE TO THRIVE DUE TO PANCREATIC CANCER. YESTERDAY, PT WAS ABLE TO REST FOR MOST OF THE DAY. THIS MORNING HE IS RESTING COMFORTABLY IN BED. PER FAMILY, HAD FEW EPISODES OF AGITATION. HE IS CURRENTLY TAKING MEDCATIONS FOR CHRONIC PAIN, THAT INCLUDE DILAUDID 8MG PO Q4HRS PRN AND FENTANYL PATCH 50MCG Q3DAYS. HE DOES STILL REQUIRE RESTRAINTS. LABS/IMAGING: WBC 18, HGB 9.3, PLT 499, NA 130, K 3.8, CREATININE 1.24, GLUCOSE 158, UA NEGATIVE, UDS APPROPRIATE, COVID-19 NEGATIVE, CT HEAD No acute intracranial abnormalities. Chronic age related involutional changes of the brain parenchyma. CXR: No active cardiopulmonary disease. HOME MEDICATIONS HAVE BEEN RESTARTED. IM HALDOL AND CONGENTIN PRN. VALIUM FOR ANXIETY. PT CAN HAVE CLEAR LIQUIDS, FAMILY AWARE OF ASPIRATION RISK AND ACCEPTS. DNR HAS BEEN SIGNED. CONTINUE TO CLOSELY MONITOR PATIENT. Past Medical Family Social History Past Med/Fam/Surg Hx: No changes since H&P Allergies: Allergies soy Allergy (Unknown, Verified 01/22/22 07:24) STEROIDS Allergy (Unknown, Uncoded 01/22/22 07:24) Review of Systems ROS: No change since H&P Vital Signs and I&O's Vital Signs: Temperature 97.4 F Pulse Rate [Apical] 89 Pulse Rate 113 Respiratory Rate 20 Blood Pressure [Left Arm] 145/75 Blood Pressure 213/104 O2 Sat by Pulse Oximetry 94 Intake and Output: Intake & Output 02/27/22 02/28/22 03/01/22 03/02/22 23:59 23:59 23:59 23:59 Intake Total 552 / 552 520 / 520 Output Total 3600 / 3600 425 / 425 Balance -3048 / -3048 95 / 95 Physical Exam Oriented: Not Oriented Eyes: Normal Ear: Normal Nose: Normal Throat: Normal Cardiovascular: Normal : Normal Auscultation: Bowel Sounds: Normal Tenderness: Normal Skin: Normal Musculoskeletal: Normal Psychiatric: Anxiety, Agitation and Other (HALLUCINATIONS) Speech Pattern: Inappropriate and Slurred Laboratory and Diagnostics Result Diagrams: 03/01/22 03:00 03/01/22 03:00 Labs: Laboratory WBC 18.0 X10^3/uL (3.6-10.0) H 03/01/22 03:00 RBC 3.81 X10^6/uL (4.7-6.0) L 03/01/22 03:00 Hgb 9.3 g/dL (13.5-18.0) L 03/01/22 03:00 Hct 28.4 % (42.0-54.0) L 03/01/22 03:00 MCV 74.6 fL (80.0-100.0) L 03/01/22 03:00 MCH 24.5 pg (27.0-34.0) L 03/01/22 03:00 MCHC 32.8 g/dL (33.0-35.0) L 03/01/22 03:00 RDW 18.7 % (11.6-16.5) H 03/01/22 03:00 Plt Count 499 X10^3/uL (150.0-450.0) H 03/01/22 03:00 Plt Count Comment Increased (ADEQUATE) 03/01/22 03:00 MPV 7.8 fL (7.4-11.0) 03/01/22 03:00 Neut % (Auto) 87.9 % (42.0-75.0) H 03/01/22 03:00 Lymph % (Auto) 1.6 % (21.0-51.0) L 03/01/22 03:00 [place] % (Auto) 10.1 % (0.0-13.0) 03/01/22 03:00 Eos % (Auto) 0.1 % (0.9-2.9) L 03/01/22 03:00 Baso % (Auto) 0.3 % (0.2-1.0) 03/01/22 03:00 Neut # (Auto) 15.8 x10^3/uL (2.2-4.8) H 03/01/22 03:00 Lymph # (Auto) 0.3 X10^3/uL (1.3-2.9) L 03/01/22 03:00 [place] # (Auto) 1.8 x10^3/uL (0.3-0.8) H 03/01/22 03:00 Eos # (Auto) 0.0 x10^3/uL (0.0-0.2) 03/01/22 03:00 Baso # (Auto) 0.1 X10^3/uL (0.0-0.1) 03/01/22 03:00 Absolute Nucleated RBC 0.0 /100WBC 03/01/22 03:00 Plt Morphology Comment Normal (NORMAL) 03/01/22 03:00 RBC Morphology Abnormal (NORMAL) 03/01/22 03:00 Hypochromasia 1+ A 03/01/22 03:00 Anisocytosis Slight A 03/01/22 03:00 Microcytosis Slight A 03/01/22 03:00 Target Cells Present 03/01/22 03:00 Schistocytes Present 03/01/22 03:00 Sodium 129 mmol/L (136-145) L 03/01/22 03:00 Corrected Sodium 130 mmol/L (136-145) L 03/01/22 03:00 Potassium 3.8 mmol/L (3.5-5.1) 03/01/22 03:00 Chloride 93 mmol/L (98-107) L 03/01/22 03:00 Carbon Dioxide 24.7 mmol/L (21-32) 03/01/22 03:00 BUN 18 mg/dL (7-18) 03/01/22 03:00 Creatinine 1.24 mg/dL (0.70-1.30) 03/01/22 03:00 Est GFR (MDRD) Af Amer > 60 (>60) 03/01/22 03:00 Est GFR (MDRD) Non-Af 59 (>60) 03/01/22 03:00 Glucose 158 mg/dL (65-99) H 03/01/22 03:00 Calcium 8.9 mg/dL (8.5-10.1) 03/01/22 03:00 Corrected Calcium TNP 03/01/22 03:00 Total Bilirubin 0.80 mg/dL (0.2-1.0) 03/01/22 03:00 AST 37 Units/L (15-37) 03/01/22 03:00 ALT 46 Units/L (12-78) 03/01/22 03:00 Alkaline Phosphatase 207 Units/L (46-116) H 03/01/22 03:00 Creatine Kinase 97 Units/L (39-308) 03/01/22 03:00 CK-MB (CK-2) 3.7 ng/mL (0-4.0) 03/01/22 03:00 CK/CKMB % Calc 3.8 % (<4) 03/01/22 03:00 Troponin I High Sens 15.0 ng/L (4.0-60.0) 03/01/22 03:00 Total Protein 7.0 g/dL (6.4-8.2) 03/01/22 03:00 Albumin 3.6 g/dL (3.4-5.0) 03/01/22 03:00 Globulin 3.4 g/dL (2.5-4.5) 03/01/22 03:00 Albumin/Globulin Ratio 1.1 Ratio (1.1-2.1) 03/01/22 03:00 Specimen Type Catherized urine 03/01/22 08:50 Urine Color Yellow (YELLOW) 03/01/22 08:50 Urine Appearance Clear (CLEAR) 03/01/22 08:50 Urine pH 7.0 (5.0 - 8.0) 03/01/22 08:50 Ur Specific [place] 1.010 (1.000-1.030) 03/01/22 08:50 Urine Protein Negative (NEGATIVE) 03/01/22 08:50 Urine Glucose (UA) Negative (NEGATIVE) 03/01/22 08:50 Urine Ketones Negative (NEGATIVE) 03/01/22 08:50 Urine Blood 2+ (NEGATIVE) 03/01/22 08:50 Urine Nitrite Negative (NEGATIVE) 03/01/22 08:50 Urine Bilirubin Negative (NEGATIVE) 03/01/22 08:50 Urine Urobilinogen Normal (NORMAL) 03/01/22 08:50 Ur Leukocyte Esterase Negative (NEGATIVE) 03/01/22 08:50 Urine RBC 0-2 /HPF (0-3) 03/01/22 08:50 Urine WBC None seen /HPF (0-5) 03/01/22 08:50 Ur Squamous Epith Cells Negative /HPF (NEGATIVE) 03/01/22 08:50 Urine Bacteria Negative /HPF (NEGATIVE) 03/01/22 08:50 Hyaline Casts Moderate /LPF (NEGATIVE) 03/01/22 04:14 Urine Mucus Few /HPF (NEGATIVE) 03/01/22 04:14 Ur Culture Indicated? No/not indicated 03/01/22 08:50 Salicylates < 2.8 mg/dL (2.8-20) L 03/01/22 03:00 Urine Opiates Screen Positive (NEG=<300) 03/01/22 04:14 Urine Methadone Screen Negative (NEG=<300) 03/01/22 04:14 Acetaminophen 0.0 ug/mL (10-30) L 03/01/22 03:00 Ur Barbiturates Screen Negative (NEG=<200) 03/01/22 04:14 Ur Phencyclidine Scrn Negative (NEG=<25) 03/01/22 04:14 Ur Amphetamines Screen Negative (NEG=<1000) 03/01/22 04:14 U Benzodiazepines Scrn Positive (NEG=<200) 03/01/22 04:14 Urine Cocaine Screen Negative (NEG=<300) 03/01/22 04:14 U Marijuana (THC) Screen Negative (NEG=<50) 03/01/22 04:14 Ethyl Alcohol mg/dL < 3 mg/dL (0-19.9) 03/01/22 03:00 SARS-CoV-2 (PCR) Negative (NEGATIVE) 03/01/22 08:28 Plan (1) Hallucinations: Status: Acute (2) Primary pancreatic cancer with metastasis to other site: Status: Acute (3) AMS (altered mental status): Status: Acute Qualifiers: Altered mental status type: transient alteration of awareness Qualified Code(s): R40.4 - Transient alteration of awareness (4) Failure to thrive: Status: Acute
[2022-03-02] MEDS: CHECK PATCH XX SCH (21:16)
[2022-03-02] MEDS: XALATAN OP SCH (21:18)
[2022-03-03] MEDS: PROTONIX INJ 40 MG VIAL IVP SCH (08:25)
[2022-03-03] MEDS: SINGULAIR TAB 10 MG PO SCH (08:30)
[2022-03-03] MEDS: FLOMAX PO SCH (08:30)
[2022-03-03] MEDS: NYSTATIN SUSP PO SCH (08:30)
[2022-03-03 08:33] VITALS: BP 170/87
[2022-03-03] MEDS: COZAAR PO SCH (08:33)
[2022-03-03] MEDS: TOPROL XL PO SCH (08:35)
[2022-03-03] MEDS: LOVENOX INJ 40 MG SYR SC SCH (09:00)
[2022-03-03] MEDS: CHECK PATCH XX SCH (09:04)
== END 2022-03-03 12:08 | disposition home health service (06) ==
LOC: MED/SURG 01:40 → ER 01:40 → MED/SURG 09:45
PROVIDERS: ADMIT Internal Medicine; ATTEND Internal Medicine
DX: C79.9 Secondary malignant neoplasm of unspecified site; R62.7 Adult failure to thrive; Z66 Do not resuscitate; R40.4 Transient alteration of awareness; I10 Essential (primary) hypertension; R94.31 Abnormal electrocardiogram [ECG] [EKG]; I48.91 Unspecified atrial fibrillation; F41.8 Other specified anxiety disorders; Z20.822 Contact with and (suspected) exposure to COVID-19; K21.9 Gastro-esophageal reflux disease without esophagitis; Z79.899 Other long term (current) drug therapy; R44.3 Hallucinations, unspecified; E87.1 Hypo-osmolality and hyponatremia; Z78.1 Physical restraint status; C25.9 Malignant neoplasm of pancreas, unspecified

== ENCOUNTER 2022-03-26 12:26 | Inpatient (IN) ==
--- NOTE | 2022-03-26 12:42 | DR.AMS ---
HPI Time Seen Time Seen by Provider: 03/26/22 12:41 Complaint Cheif Complaint Doctors Comments: 82 y/o male presents for evaluation for altered mental status, brought in via EMS. Started treatment for metastatic colon ca this weeks - pills, in combination with radiation therapy. Started Wednesday, ok first 2 days, developed mild mental status changes after finishing treatment yesterday, + worsened as the night went on. Pt is nauseous, but no vomiting. Has been a bit constipated (off miralax x few days). No report of fever, chills. Having generalized weakness. PMH PMH Past Medical History: Hypertension (Metastatic colon ca) Past Surgical History: Yes Surgical History: Cholecystectomy Family History Family Medical History: Cancer Social History Do you use any recreational Drugs:: No ROS Review of Systems Constitutional: Weakness; negative Chills or Fever Eyes: No Symptoms Reported ENTM: No Symptoms Reported Respiratoy: No Symptoms Reported Cardiovascular: No Symptoms Reported Gastrointestinal/Abdominal: Constipation and Nausea Genitourinary: No Symptoms Reported Neurological: Weakness, Dizziness and Other (confusion) Musculoskeletal: No Symptoms Reported Integumentary: No Symptoms Reported Hematologic/Lymphatic: No Symptoms Reported Psychiatric: No Symptoms Reported All Other Systems: Reviewed and Negative PE Vitals Vital Signs: Temp Pulse Resp BP BP Pulse Ox O2 Del Method 03/26/22 15:00 83 03/26/22 14:45 89 03/26/22 14:30 94 H 03/26/22 14:15 97 H 03/26/22 14:00 95 H 03/26/22 13:45 115 H 03/26/22 13:38 106 H 03/26/22 13:15 104 H 03/26/22 13:14 104 H 03/26/22 12:37 97.8 F 107 H 29 H 136/83 98 Room Air 03/03/22 08:32 170/87 General Limitations: No Limitations General Appearance: Alert and In No Apparent Distress Head Head Exam: Normal Inspection Eyes Eye exam: PERRL and EOMI ENT ENT Exam: Mucous Membranes Moist Neck Neck Exam: Full ROM; negative Tenderness Respiratory Respiratory Exam: Normal Lung Sounds Bilat; negative Accessory Muscle Use or Respiratory Distress Respiratory Exam: Bilateral: Clear to Auscultation Cardiovascular Cardiovascular Exam: Regular Rate, Normal Rhythm and Normal Heart Sounds Abdominal Exam Abdominal Exam: Normal Bowel Sounds and Soft; negative Tenderness Back Back Exam: negative (R) CVA Tenderness or (L) CVA Tenderness Neurological Neurological Exam: CN II-XII Intact; negative Motor Sensory Deficit Skin Skin Exam: Warm and Dry MDM Differential Diagnosis Metabolic: Dehydration (electrolyte abn) Structural: Mass Lesion COURSE Treatment Treatment: 82 y/o male with altered mental status since yesterday, recently started treatment for metastatic colon ca. PE bengn, no focal deficits. W/u iniitated. Givne IV fluids, IV zofran. 1500 - Labs show a low sodium of 115. Also with mild anemia, Hgb 9.3. Has mild elevation of liver enzymes. Recommend admission for correction of his sodium. Did not repeat a CT of the brain, had one here 3 weeks ago, no trauma since. Left message with his oncologist in [place] (Dr Marcos, ). Call put out to Dr Greene to admit. ROR Labs Reviewed Laboratory Results Reviewed?: Yes Result Diagrams: 03/26/22 13:25 03/26/22 13:25 Laboratory: WBC 13.6 X10^3/uL (3.6-10.0) H 03/26/22 13:25 RBC 3.70 X10^6/uL (4.7-6.0) L 03/26/22 13:25 Hgb 9.3 g/dL (13.5-18.0) L 03/26/22 13:25 Hct 27.5 % (42.0-54.0) L 03/26/22 13:25 MCV 74.3 fL (80.0-100.0) L 03/26/22 13:25 MCH 25.1 pg (27.0-34.0) L 03/26/22 13:25 MCHC 33.7 g/dL (33.0-35.0) 03/26/22 13:25 RDW 23.4 % (11.6-16.5) H 03/26/22 13:25 Plt Count 511 X10^3/uL (150.0-450.0) H 03/26/22 13:25 Plt Count Comment Increased (ADEQUATE) 03/26/22 13:25 MPV 7.6 fL (7.4-11.0) 03/26/22 13:25 Neut % (Auto) 67.7 % (42.0-75.0) 03/26/22 13:25 Lymph % (Auto) 28.2 % (21.0-51.0) 03/26/22 13:25 [place] % (Auto) 3.4 % (0.0-13.0) 03/26/22 13:25 Eos % (Auto) 0.2 % (0.9-2.9) L 03/26/22 13:25 Baso % (Auto) 0.5 % (0.2-1.0) 03/26/22 13:25 Neut # (Auto) 9.2 x10^3/uL (2.2-4.8) H 03/26/22 13:25 Lymph # (Auto) 3.8 X10^3/uL (1.3-2.9) H 03/26/22 13:25 [place] # (Auto) 0.5 x10^3/uL (0.3-0.8) 03/26/22 13:25 Eos # (Auto) 0.0 x10^3/uL (0.0-0.2) 03/26/22 13:25 Baso # (Auto) 0.1 X10^3/uL (0.0-0.1) 03/26/22 13:25 Absolute Nucleated RBC 0.1 /100WBC 03/26/22 13:25 Total Counted 100 03/26/22 13:25 Neutrophils % (Manual) 85 % (39-76) H 03/26/22 13:25 Band Neutrophils % 2 % (0-10) 03/26/22 13:25 Lymphocytes % (Manual) 9 % (13-43) L 03/26/22 13:25 Monocytes % (Manual) 4 % (4-9) 03/26/22 13:25 Plt Morphology Comment Normal (NORMAL) 03/26/22 13:25 RBC Morphology Abnormal (NORMAL) 03/26/22 13:25 Anisocytosis 2+ A 03/26/22 13:25 Microcytosis Slight A 03/26/22 13:25 Target Cells 1+ A 03/26/22 13:25 Ovalocytes Slight A 03/26/22 13:25 Sodium 115 mmol/L (136-145) L* 03/26/22 13:25 Corrected Sodium 116 mmol/L (136-145) L 03/26/22 13:25 Potassium 4.5 mmol/L (3.5-5.1) 03/26/22 13:25 Chloride 83 mmol/L (98-107) L 03/26/22 13:25 Carbon Dioxide 24.1 mmol/L (21-32) 03/26/22 13:25 BUN 20 mg/dL (7-18) H 03/26/22 13:25 Creatinine 1.01 mg/dL (0.70-1.30) 03/26/22 13:25 Est GFR (MDRD) Af Amer > 60 (>60) 03/26/22 13:25 Est GFR (MDRD) Non-Af > 60 (>60) 03/26/22 13:25 Glucose 134 mg/dL (65-99) H 03/26/22 13:25 Calcium 7.9 mg/dL (8.5-10.1) L 03/26/22 13:25 Corrected Calcium 9.4 mg/dL (8.5-10.1) 03/26/22 13:25 Total Bilirubin 4.10 mg/dL (0.2-1.0) H 03/26/22 13:25 AST 136 Units/L (15-37) H 03/26/22 13:25 ALT 104 Units/L (12-78) H 03/26/22 13:25 Alkaline Phosphatase 305 Units/L (46-116) H 03/26/22 13:25 Total Protein 5.4 g/dL (6.4-8.2) L 03/26/22 13:25 Albumin 2.1 g/dL (3.4-5.0) L 03/26/22 13:25 Globulin 3.3 g/dL (2.5-4.5) 03/26/22 13:25 Albumin/Globulin Ratio 0.6 Ratio (1.1-2.1) L 03/26/22 13:25 Lipase 104 Units/L (73-393) 03/26/22 13:25 SARS-CoV-2 (PCR) Negative (NEGATIVE) 03/26/22 13:54 Na low at 115, has mild anemia Hgb 9.3. EKG Rate: 100 Lee: LAD Rhythm: Afib ST: Nonsp Opioid Opioid Risk Tool Age (Benjamin box if 16-45): No History of Preadolescent Sexual Abuse: No Total: 0 Total Score Risk Category: Low Risk Copyright: [employer] predicting aberrant behaviors Diagnosis Discharge Problem: Acute hyponatremia
[2022-03-26] MEDS ORDERED: ZOFRAN INJ 4 MG VIAL IVP ONE (13:01)
[2022-03-26] MEDS ORDERED: NS 500 ML IV 500 ML IV ONE ×2 (13:02→13:11)
[2022-03-26] MEDS ORDERED: ZOFRAN INJ 4 MG VIAL ONE (13:11)
[2022-03-26] MEDS ORDERED: PROTONIX INJ 40 MG VIAL IVP ONE (13:13)
[2022-03-26] MEDS ORDERED: PROTONIX INJ 40 MG VIAL ONE (13:31)
[2022-03-26 13:42] LABS: BASOPHILS # (AUTO) 0.1 X10^3/uL (0.0-0.1); BASOPHILS % (AUTO) 0.5 % (0.2-1.0); EOSINOPHILS % (AUTO) 0.2 % (0.9-2.9); HEMATOCRIT 27.5 % (42.0-54.0); HEMOGLOBIN 9.3 g/dL (13.5-18.0); LYMPHOCYTES # (AUTO) 3.8 X10^3/uL (1.3-2.9); LYMPHOCYTES % (AUTO) 28.2 % (21.0-51.0); MEAN CORPUSCULAR HEMOGLOBIN 25.1 pg (27.0-34.0); MEAN CORPUSCULAR HGB CONC 33.7 g/dL (33.0-35.0); MEAN CORPUSCULAR VOLUME 74.3 fL (80.0-100.0); MEAN PLATELET VOLUME 7.6 fL (7.4-11.0); MONOCYTES # (AUTO) 0.5 x10^3/uL (0.3-0.8); MONOCYTES % (AUTO) 3.4 % (0.0-13.0); NEUTROPHILS # (AUTO) 9.2 x10^3/uL (2.2-4.8); NEUTROPHILS % (AUTO) 67.7 % (42.0-75.0); RED CELL DISTRIBUTION WIDTH 23.4 % (11.6-16.5); WHITE BLOOD COUNT 13.6 X10^3/uL (3.6-10.0)
--- NOTE | 2022-03-26 13:46 | RAD ---
CHEST, 1 VIEWHISTORY: ALTERED MENTAL STATUS. H/O COLON CAStudy: Single view of the chest.Comparison:NoneFindings:The cardiomediastinal silhouette is normal. Bilateral interstitial prominence. No focal consolidations, pleural effusions or pneumothorax. Osseous structures demonstrate no acute abnormality.IMPRESSION:1. Bilateral interstitial prominence. Findings may represent atypical infection, including viral etiologies.Electronically signed by: JOVAN JOHNSON (Mar 26, 2022 13:44:12)
[2022-03-26 13:52] LABS: ANISOCYTOSIS 2+; BAND NEUTROPHILS % 2 % (0-10); MICROCYTOSIS SLIGHT; PLATELET MORPHOLOGY COMMENT NORMAL (NORMAL); TARGET CELLS 1+
[2022-03-26 13:53] LABS: OVALOCYTES SLIGHT
[2022-03-26 13:54] LABS: ALANINE AMINOTRANSFERASE 104 Units/L (12-78); ALBUMIN 2.1 g/dL (3.4-5.0); ALKALINE PHOSPHATASE 305 Units/L (46-116); ASPARTATE AMINO TRANSFERASE 136 Units/L (15-37); BLOOD UREA NITROGEN 20 mg/dL (7-18); CALCIUM 7.9 mg/dL (8.5-10.1); CARBON DIOXIDE 24.1 mmol/L (21-32); CHLORIDE 83 mmol/L (98-107); COR CA(FOR HYPOALB) 9.4 mg/dL (8.5-10.1); COR NA(FOR HYPERGLY) 116 mmol/L (136-145); CREATININE 1.01 mg/dL (0.70-1.30); LIPASE 104 Units/L (73-393); TOTAL PROTEIN 5.4 g/dL (6.4-8.2); eGFR NON BLACK RACES > 60 (>60)
[2022-03-26 14:01] LABS: SODIUM 115 mmol/L (136-145)
[2022-03-26] MEDS ORDERED: HALDOL INJ IM PRN (16:48)
[2022-03-26] MEDS ORDERED: HALDOL INJ ONE ×2 (16:56→17:42)
[2022-03-26] MEDS ORDERED: ATIVAN INJ 2 MG VIAL IM PRN (17:33)
[2022-03-26] MEDS ORDERED: VALIUM INJ IM ONE (17:43)
[2022-03-26] MEDS ORDERED: PERCOCET TAB 5/325 MG PO PRN (17:43)
[2022-03-26] MEDS ORDERED: VALIUM INJ ONE (17:43)
[2022-03-26] MEDS: HALDOL INJ IM PRN (17:59)
[2022-03-26] MEDS: NS 1,000 ML IV 1,000 ML IV SCH (18:00)
[2022-03-26] MEDS: CAPECITABINE 500 MG PO SCH (21:02)
[2022-03-26] MEDS: ELIQUIS PO SCH (21:03)
[2022-03-26] MEDS: COZAAR PO SCH (21:03)
[2022-03-26] MEDS: PROTONIX TAB 40 MG PO SCH (21:03)
[2022-03-26] MEDS: PERIACTIN TAB 4 MG PO SCH (22:23)
[2022-03-27] MEDS: NS 1,000 ML IV 1,000 ML IV SCH ×2 (00:59→08:43)
[2022-03-27] MEDS: HALDOL INJ IM PRN ×2 (01:11→10:19)
[2022-03-27] MEDS: DILAUDID INJ IVP PRN ×3 (03:15→17:00)
[2022-03-27 04:57] LABS: MEAN PLATELET VOLUME 7.9 fL (7.4-11.0)
[2022-03-27 05:10] LABS: ALANINE AMINOTRANSFERASE 82 Units/L (12-78); ALKALINE PHOSPHATASE 275 Units/L (46-116); ASPARTATE AMINO TRANSFERASE 110 Units/L (15-37); BLOOD UREA NITROGEN 23 mg/dL (7-18); CALCIUM 7.8 mg/dL (8.5-10.1); CARBON DIOXIDE 22.2 mmol/L (21-32); CHLORIDE 84 mmol/L (98-107); COR CA(FOR HYPOALB) 9.4 mg/dL (8.5-10.1); CREATININE 0.99 mg/dL (0.70-1.30); eGFR NON BLACK RACES > 60 (>60)
[2022-03-27 05:11] LABS: EOSINOPHILS # (AUTO) 0.1 x10^3/uL (0.0-0.2)
[2022-03-27 05:12] LABS: SODIUM 115 mmol/L (136-145)
[2022-03-27 05:17] LABS: BASOPHILS # (AUTO) 0.2 X10^3/uL (0.0-0.1); BASOPHILS % (AUTO) 1.4 % (0.2-1.0); EOSINOPHILS % (AUTO) 0.5 % (0.9-2.9); HEMATOCRIT 24.4 % (42.0-54.0); HEMOGLOBIN 8.3 g/dL (13.5-18.0); LYMPHOCYTES # (AUTO) 4.7 X10^3/uL (1.3-2.9); LYMPHOCYTES % (AUTO) 38.4 % (21.0-51.0); MEAN CORPUSCULAR HEMOGLOBIN 25.3 pg (27.0-34.0); MEAN CORPUSCULAR HGB CONC 33.9 g/dL (33.0-35.0); MEAN CORPUSCULAR VOLUME 74.5 fL (80.0-100.0); MONOCYTES # (AUTO) 0.5 x10^3/uL (0.3-0.8); MONOCYTES % (AUTO) 4.2 % (0.0-13.0); NEUTROPHILS # (AUTO) 6.8 x10^3/uL (2.2-4.8); NEUTROPHILS % (AUTO) 55.5 % (42.0-75.0); RED BLOOD COUNT 3.28 X10^6/uL (4.7-6.0); RED CELL DISTRIBUTION WIDTH 23.7 % (11.6-16.5); WHITE BLOOD COUNT 12.2 X10^3/uL (3.6-10.0)
[2022-03-27] MEDS: PERIACTIN TAB 4 MG PO SCH ×2 (05:37→13:44)
--- NOTE | 2022-03-27 06:14 | RAD ---
HISTORYShortness of breathSTUDYChest AP [id number] t size is normal. Nissa are normal. Aorta is mildly ectatic. Interstitial lung changes are present bilaterally not significantly different from the prior examination. No alveolar infiltrates, areas of consolidation, pleural effusions identified. Bony thorax is unremarkable.IMPRESSIONNo significant change from the prior examinationElectronically signed by: DELL LI (Mar 27, 2022 06:12:59)
[2022-03-27 06:47] LABS: ANISOCYTOSIS 2+; BAND NEUTROPHILS % 8 % (0-10); PLATELET MORPHOLOGY COMMENT NORMAL (NORMAL)
[2022-03-27 06:48] LABS: MICROCYTOSIS SLIGHT; OVALOCYTES SLIGHT; TARGET CELLS 1+
[2022-03-27] MEDS: CAPECITABINE 500 MG PO SCH (08:44)
[2022-03-27] MEDS: ELIQUIS PO SCH (08:45)
[2022-03-27] MEDS: COZAAR PO SCH (08:45)
[2022-03-27] MEDS: PROTONIX TAB 40 MG PO SCH (08:46)
[2022-03-27] MEDS ORDERED: FLOMAX PO SCH (09:00)
[2022-03-27] MEDS ORDERED: LOPRESSOR TAB 25 MG PO SCH (09:00)
[2022-03-27] MEDS ORDERED: HALDOL INJ IVP PRN (11:00)
[2022-03-27] MEDS ORDERED: SODIUM CHL HYPERTONIC ** 3% ** 500 ML IV NR (11:00)
[2022-03-27] MEDS: MORPHINE SULFATE PCA 30 MG IVP PRN (11:31)
--- NOTE | 2022-03-27 14:47 | DR.H&P ---
H&P - History & Physical for Day of: H&P Date: 03/26/22 - Chief Complaint Chief Complaint: AMS, WEAKNESS - History of Present Illness History of Present Illness: IS A 82 YEAR OLD PATIENT OF OURS. HE PRESENTED TO THE ER VIA EMS WITH SPOUSE REPORTING THAT PATIENT HAS HAD SUDDEN ONSET OF ALTERED MENTAL STATUS AND WEAKNESS. PATIENT HAS HAD A RECENT DIAGNOSIS OF PANCREATIC, LUNG, LIVER, AND COLON CANCER. HE JUST STARTED CHEMO AND RAD IATION OVER THE PAST TWO WEEKS. SPOUSE REPORTED THAT HE STARTED HAVING MENTAL CHANGES AND GENERALIZED WEAKNESS ON WEDNESDAY AND IT HAS PROGRESSIVELY GOTTEN WORSE. SHE REPORTS THAT HE HAS BEEN COMBATIVE WITH HER. HIS SPOUSE ALSO REPORTS THAT HE HAS HAD CONSTIPATION AND NAUSEA FOR THE PAST FEW DAYS, BUT NO VOMITING. HIS PMH INCLUDES: ADENOCARCINOMA, A-FIB, CHOLECYSTECTOMY, AND HERNIA REPAIR. ON ARRIVAL, HIS VITALS WERE 97.8-107-29-98%-136/83. LABS WERE OBTAINED. WBC 13.6, RBC 3.70, HGB 9.3, HCT 27.5, PLT COUNT 511, SODIUM 115, POTASSIUM 4.5, CHLORIDE 83, BUN 20, CREATININE 1.01, GLUCOSE 134, CALCIUM 7.9, TOTAL BILI 4.10, AST 136, ALT 104, ALK PHOS 305, TOTAL PROTEIN 5.4, ALBUMIN 2.1. AN EKG WAS OBTAINED AND REVEALED: ATRIAL FIBRILLATION WITH HR 100. A CHEST XRAY WAS OBTAINED AND REVEALED: 1. Bilateral interstitial prominence. Findings may represent atypical infection, including viral etiologies. IN THE ER, HE WAS GIVEN ZOFRAN 4MG IV X 1 DOSE, PROTONIX 40MG IV X 1 DOSE, AND A NORMAL SALINE BOLUS. HE WAS ADMITTED TO THE HOSPITAL FOR FURTHER EVALUATION AND TREATMENT OF ACUTE HYPONATREMIA, AMS, METASTATIC DISEASE. HE WAS STARTED ON NORMAL SALINE AT 125 ML/HR, ELIQUIS 2.5MG PO BID, PERIACTIN 4MG PO TID, DURAGESIC 50MCG/HR PATCH, HALDOL 5MG IV Q4H PRN, DILAUDID 2MG IV Q4H PRN, COZAAR 25MG PO BID, LOPRESSOR 25MG PO DAILY, PERCOCET 5/325MG 2 TABS PO Q6H PRN, PROTONIX 40MG PO BID, AND TASULOSIN 0.4MG PO DAILY. OTHERWISE, WE PLANNED TO FOLLOW-UP WITH AM LABS AND CONTINUE TO MONITOR. TIME SPENT ON CLINICAL ASSESSMENT, REVIEWING LABS AND IMAGING, DECISION MAKING, AND DOCUMENTATION GREATER THAN 75 MINUTES. - Past Medical History Past Medical History: Hypertension (Metastatic colon ca) Additional Medical History: HERNIA REPAIR, CATARACTS REMOVED, A-FIB, PANCREATIC, LUNG, AND COLON CANCER - Past Surgical History Surgical History: Cholecystectomy Additional Surgical History: INGUINAL HERNIA REPAIR - Family History Family Medical History: Cancer, Hypertension - Social History Does patient currently use any type of tobacco product: No Have you used tobacco products in the last 12 months: No Type of Tobacco Use: None Does any household member use tobacco: No Alcohol Use: None Drug Use: None - Medications Home Medications: soy Allergy (Unknown, Verified 01/22/22 07:24) STEROIDS Allergy (Unknown, Uncoded 01/22/22 07:24) CONTINUE taking the following medications apixaban 2.5 mg tablet (Eliquis) 2.5 mg PO BID 03/26/22 [History] capecitabine 500 mg tablet 500 mg PO BID 03/26/22 [History] cyproheptadine 4 mg tablet 4 mg PO TID 03/26/22 [History] fentanyl 50 mcg/hr transdermal patch 50 mcg topical Q3D 03/26/22 [History] losartan 25 mg tablet 25 mg PO BID 03/26/22 [History] metoprolol tartrate 25 mg tablet 25 mg PO DAILY 03/26/22 [History] oxycodone-acetaminophen 10 mg-325 mg tablet 1 tab PO Q6H PRN 03/26/22 [History] vit C 250 mg-vit E 90 mg-zinc 40 mg-copper 1 [id number] capsule (PreserVision AREDS-2) 1 tab PO DAILY 03/26/22 [History] - Review of Systems Constitutional: Weakness Eyes: No Symptoms Reported ENT: No Symptoms Reported Respiratory: No Symptoms Reported Cardiovascular: No Symptoms Reported Gastrointestinal: Nausea, Abdominal Pain Genitourinary: No Symptoms Reported Musculoskeletal: Back Pain Skin: Bruising Neurological: Weakness, Confusion - Physical Exam Vital Signs: Temperature 98.3 F Pulse Rate [Left Radial] 92 Pulse Rate 87 Respiratory Rate 18 Blood Pressure [Left Arm] 99/58 Blood Pressure 136/83 O2 Sat by Pulse Oximetry 98 Oriented: Not Oriented Eyes: Normal Ear: Normal Nose: Normal Throat: Normal Respiratory: Diminished Throughout Cardiovascular: Tachycardia : Normal Auscultation: Bowel Sounds: Normal Palpation: Normal Tenderness: Diffuse Skin: Other (JAUNDICE ) Musculoskeletal: Back:Lumbar, Tender Psychiatric: Anxiety, Agitation Mood Description: Anxious Affect: Anxious Speech Pattern: Inappropriate - Assessment/Plan (1) Acute hyponatremia Status: Acute Plan: ADMIT, NORMAL SALINE AT 125 ML/HR, ELIQUIS 2.5MG PO BID, PERIACTIN 4MG PO TID, DURAGESIC 50MCG/HR PATCH, HALDOL 5MG IV Q4H PRN, DILAUDID 2MG IV Q4H PRN, COZAAR 25MG PO BID, LOPRESSOR 25MG PO DAILY, PERCOCET 5/325MG 2 TABS PO Q6H PRN, PROTONIX 40MG PO BID, AND TASULOSIN 0.4MG PO DAILY. (2) AMS (altered mental status) Qualifiers: Altered mental status type: transient alteration of awareness Qualified Code(s): R40.4 - Transient alteration of awareness Status: Acute (3) Generalized weakness Status: Acute (4) Elevated liver function tests Status: Acute (5) Failure to thrive Qualifiers: Failure to thrive age range: in adult Qualified Code(s): R62.7 - Adult failure to thrive Status: Acute (6) Metastatic disease Qualifiers: Area of secondary neoplastic involvement: digestive structure Digestive structure secondary neoplasm location: metastatic to unspecified digestive structure Qualified Code(s): 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
[2022-03-27 14:53] VITALS: BMI 26.7
--- NOTE | 2022-03-27 15:11 | PCM.PROG ---
Progress Note - Progress Note for Day of Date of Exam: 03/27/22 - Subjective Subjective: WAS ADMITTED INPATIENT STATUS FOR TREATMENT OF ACUTE HYPONATREMIA, ELEVATED LFTs, AMS, AND GENERALIZED WEAKNESS. HE RECENTLY STARTED CHEMO AND RADIATION FOR TREATMENT OF METASTATIC DISEASE. TODAY, PATIENT IS NOTED TO BE DISORIENTED AND VERY AGITATED. HIS SPOUSE STATES THAT HE HAS NOT SLEPT AT ALL THROUGHOUT THE NIGHT. STAFF REPORTS THAT PATIENT HAS BEEN IN AND OUT OF BED ALL NIGHT. STAFF REPORTS THAT PATIENT IS COMBATIVE AT TIMES. THEY ALSO REPORT THAT HE MOANS OUT IN PAIN OFTEN. UPON EXAMINATION, PATIENT IS NOT ORIENTED TO SURROUNDINGS AND IS UNAWARE OF WHO I AM EVEN THOUGH WE HAVE KNOWN EACH OTHER FOR MANY YEARS. HEART IS REGULAR IN RATE AND RHYTHM. BILATERAL LUNGS NOTED WITH DIMINISHED LUNG SOUNDS THROUGHOUT. ABDOMEN IS ROUND, SOFT, AND NOTED WITH DIFFUSE TENDERNESS. HYPOACTIVE BOWEL SOUNDS NOTED. NO UPPER OR LOWER EXTREMITY EDEMA NOTED. HIS VITALS THIS MORNING ARE: 98.3-92-20-98%-99/58. LABS WERE OBTAINED. WBC 12.2, RBC 3.28, HGB 8.3, HCT 24.4, PLT COUNT 403, SODIUM 115, POTASSIUM 4.8, CHLORIDE 84, BUN 23, CREATININE 0.99, GLUCOSE 83, CALCIUM 7.8, TOTAL BILI 3.90, AST 110, ALT 82, ALK PHOS 275, TOTAL PROTEIN 5.0, ALBUMIN 2.0. A CHEST XRAY WAS REPEATED AND REVEALED: Heart size is normal. Nissa are normal. Aorta is mildly ectatic. Interstitial lung changes are present bilaterally not significantly different from the prior examination. No alveolar infiltrates, areas of consolidation, pleural effusions identified. Bony thorax is unremarkable. WE DISCUSSED LABS AND PATIENTS DECLINING CONDITION WITH HIS SPOUSE AND CHILDREN. THEY WISH FOR PATIENT TO BE KEPT COMFORTABLE AND TO STOP ALL OTHER TREATMENTS AT THIS TIME, BESIDES PAIN MEDICATIONS AND IV FLUIDS. DUE TO CRITICAL LOW SODIUM LEVELS, WE WILL ADMINISTER 3% SALINE TO PREVENT ANY SEIZURE ACTIVITITY. WE WILL START MORPHINE 2MG/HR CONTINUOUS DRIP AND VERSED 2MG/HR CONTINUOUS DRIP. OTHERWISE, WE WILL CONTINUE TO MONITOR AND MAKE CHANGES NECESSARY. TIME SPENT ON CLINICAL ASSESSMENT, REVIEWING LABS AND IMAGING, DECISION MAKING, AND DOCUMENTATION GREATER THAN 45 MINUTES. - Past Medical Family Social History Past Med/Fam/Surg Hx: No changes since H&P Allergies: Allergies soy Allergy (Unknown, Verified 01/22/22 07:24) STEROIDS Allergy (Unknown, Uncoded 01/22/22 07:24) - Review of Systems ROS: No change since H&P - Vital Signs and I&O's Vital Signs: Temperature 98.3 F Pulse Rate [Left Radial] 92 Pulse Rate 87 Respiratory Rate 18 Blood Pressure [Left Arm] 99/58 Blood Pressure 136/83 O2 Sat by Pulse Oximetry 98 Intake and Output: Intake & Output 03/25/22 03/26/22 03/27/22 03/28/22 11:59 11:59 11:59 11:59 Intake Total 1337 / 1337 Balance 1337 / 1337 - Physical Exam Oriented: Not Oriented Eyes: Normal Ear: Normal Nose: Normal Throat: Normal Respiratory: Diminished Cardiovascular: Normal, Tachycardia : Normal Auscultation: Bowel Sounds: Normal Palpation: Normal Tenderness: Diffuse Skin: Other (JAUNDICE ) Musculoskeletal: Back:Lumbar, Tender Psychiatric: Anxiety, Agitation Mood Description: Anxious Affect: Anxious, Violent Speech Pattern: Inappropriate - Laboratory and Diagnostics Result Diagrams: 03/27/22 04:20 03/27/22 04:20 Labs: Laboratory WBC 12.2 X10^3/uL (3.6-10.0) H 03/27/22 04:20 RBC 3.28 X10^6/uL (4.7-6.0) L 03/27/22 04:20 Hgb 8.3 g/dL (13.5-18.0) L 03/27/22 04:20 Hct 24.4 % (42.0-54.0) L 03/27/22 04:20 MCV 74.5 fL (80.0-100.0) L 03/27/22 04:20 MCH 25.3 pg (27.0-34.0) L 03/27/22 04:20 MCHC 33.9 g/dL (33.0-35.0) 03/27/22 04:20 RDW 23.7 % (11.6-16.5) H 03/27/22 04:20 Plt Count 403 X10^3/uL (150.0-450.0) 03/27/22 04:20 Plt Count Comment Adequate (ADEQUATE) 03/27/22 04:20 MPV 7.9 fL (7.4-11.0) 03/27/22 04:20 Neut % (Auto) 55.5 % (42.0-75.0) 03/27/22 04:20 Lymph % (Auto) 38.4 % (21.0-51.0) 03/27/22 04:20 [place] % (Auto) 4.2 % (0.0-13.0) 03/27/22 04:20 Eos % (Auto) 0.5 % (0.9-2.9) L 03/27/22 04:20 Baso % (Auto) 1.4 % (0.2-1.0) H 03/27/22 04:20 Neut # (Auto) 6.8 x10^3/uL (2.2-4.8) H 03/27/22 04:20 Lymph # (Auto) 4.7 X10^3/uL (1.3-2.9) H 03/27/22 04:20 [place] # (Auto) 0.5 x10^3/uL (0.3-0.8) 03/27/22 04:20 Eos # (Auto) 0.1 x10^3/uL (0.0-0.2) 03/27/22 04:20 Baso # (Auto) 0.2 X10^3/uL (0.0-0.1) H 03/27/22 04:20 Absolute Nucleated RBC 0.3 /100WBC 03/27/22 04:20 Total Counted 100 03/27/22 04:20 Neutrophils % (Manual) 87 % (39-76) H 03/27/22 04:20 Band Neutrophils % 8 % (0-10) 03/27/22 04:20 Lymphocytes % (Manual) 2 % (13-43) L 03/27/22 04:20 Monocytes % (Manual) 3 % (4-9) L 03/27/22 04:20 Plt Morphology Comment Normal (NORMAL) 03/27/22 04:20 RBC Morphology Abnormal (NORMAL) 03/27/22 04:20 Anisocytosis 2+ A 03/27/22 04:20 Microcytosis Slight A 03/27/22 04:20 Target Cells 1+ A 03/27/22 04:20 Ovalocytes Slight A 03/27/22 04:20 Sodium 115 mmol/L (136-145) L* 03/27/22 04:20 Corrected Sodium TNP 03/27/22 04:20 Potassium 4.8 mmol/L (3.5-5.1) 03/27/22 04:20 Chloride 84 mmol/L (98-107) L 03/27/22 04:20 Carbon Dioxide 22.2 mmol/L (21-32) 03/27/22 04:20 BUN 23 mg/dL (7-18) H 03/27/22 04:20 Creatinine 0.99 mg/dL (0.70-1.30) 03/27/22 04:20 Est GFR (MDRD) Af Amer > 60 (>60) 03/27/22 04:20 Est GFR (MDRD) Non-Af > 60 (>60) 03/27/22 04:20 Glucose 83 mg/dL (65-99) 03/27/22 04:20 Calcium 7.8 mg/dL (8.5-10.1) L 03/27/22 04:20 Corrected Calcium 9.4 mg/dL (8.5-10.1) 03/27/22 04:20 Total Bilirubin 3.90 mg/dL (0.2-1.0) H 03/27/22 04:20 AST 110 Units/L (15-37) H 03/27/22 04:20 ALT 82 Units/L (12-78) H 03/27/22 04:20 Alkaline Phosphatase 275 Units/L (46-116) H 03/27/22 04:20 Total Protein 5.0 g/dL (6.4-8.2) L 03/27/22 04:20 Albumin 2.0 g/dL (3.4-5.0) L 03/27/22 04:20 Globulin 3.0 g/dL (2.5-4.5) 03/27/22 04:20 Albumin/Globulin Ratio 0.7 Ratio (1.1-2.1) L 03/27/22 04:20 Lipase 104 Units/L (73-393) 03/26/22 13:25 SARS-CoV-2 (PCR) Negative (NEGATIVE) 03/26/22 13:54 - Plan (1) Acute hyponatremia Status: Acute Plan: 3% SALINE, DURAGESIC 50MCG/HR PATCH, HALDOL 5MG IV Q4H PRN, DILAUDID 2MG IV Q4H PRN, PERCOCET 5/325MG 2 TABS PO Q6H PRN, MORPHINE DRIP 2MG/HR, VERSED DRIP 2MG/HR (2) AMS (altered mental status) Status: Acute Qualifiers: Altered mental status type: transient alteration of awareness Qualified Code(s): R40.4 - Transient alteration of awareness (3) Generalized weakness Status: Acute (4) Elevated liver function tests Status: Acute (5) Failure to thrive Status: Acute Qualifiers: Failure to thrive age range: in adult Qualified Code(s): R62.7 - Adult failure to thrive (6) Metastatic disease Status: Acute Qualifiers: Area of secondary neoplastic involvement: digestive structure Digestive structure secondary neoplasm location: metastatic to unspecified digestive structure Qualified Code(s): 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
[2022-03-28 00:02] VITALS: BP 99/58
[2022-03-28] MEDS: VERSED 100 MG in NS 100 ML IV 80 ML IV PRN ×2 (01:11→23:15)
[2022-03-28] MEDS: MORPHINE SULFATE PCA 30 MG IVP PRN ×3 (02:46→16:14)
[2022-03-28] MEDS ORDERED: NS 500 ML IV 500 ML IV SCH (14:00)
--- NOTE | 2022-03-28 14:57 | PCM.PROG ---
Progress Note - Progress Note for Day of Date of Exam: 03/28/22 - Subjective Subjective: WAS ADMITTED INPATIENT STATUS FOR TREATMENT OF ACUTE HYPONATREMIA, ELEVATED LFTs, AMS, AND GENERALIZED WEAKNESS. HE HAS METASTATIC DISEASE AND RECENTLY STARTED CHEMO AND RADIATION FOR PALLIATIVE THERAPY. HE IS NOW ON COMFORT MEASURES. TODAY, PATIENT IS LYING IN BED WITH EYES CLOSED ON MORNING ROUNDS. HE IS DIFFICULT TO AROUSE THIS MORNING. STAFF AND FAMILY REPORT THAT HE MOANS OUT IN PAIN OFTEN. UPON EXAMINATION, PATIENT NOTED WITH AUDIBLE CRACKLES. HEART IS REGULAR IN RATE AND RHYTHM. ABDOMEN IS ROUND, SOFT, AND NOTED WITH DIFFUSE TENDERNESS. HYPOACTIVE BOWEL SOUNDS NOTED. NO UPPER OR LOWER EXTREMITY EDEMA NOTED. HIS FAMILY REFUSED BLOOD PRESSURES OR LABS THIS MORNING. HE IS CONNECTED TO A CONTINUOUS PULSE OX WHICH REVEALED THAT HIS HR IS IN THE 80s AND HIS OXYGEN SATURATIONS IN THE 90s. HE IS CURRENTLY RECEIVING MORPHINE 2MG/HR CONTINUOUS DRIP, VERSED 2MG/HR CONTINUOUS DRIP, AND HAS ON A [place] 50MCG/HR PATCH. TODAY, WE WILL INCREASE MORPHINE AND VERSED DRIPS TO 4MG/HR CONTINUOUS DRIP. OTHERWISE, WE WILL CONTINUE TO MONITOR AND MAKE CHANGES NECESSARY. TIME SPENT ON CLINICAL ASSESSMENT, REVIEWING LABS AND IMAGING, DECISION MAKING, AND DOCUMENTATION GREATER THAN 45 MINUTES. - Past Medical Family Social History Past Med/Fam/Surg Hx: No changes since H&P Allergies: Allergies soy Allergy (Unknown, Verified 01/22/22 07:24) STEROIDS Allergy (Unknown, Uncoded 01/22/22 07:24) - Review of Systems ROS: No change since H&P - Vital Signs and I&O's Vital Signs: Temperature 98.3 F Pulse Rate [Left Radial] 92 Pulse Rate 87 Respiratory Rate 18 Blood Pressure [Left Arm] 99/58 Blood Pressure 136/83 O2 Sat by Pulse Oximetry 98 Intake and Output: Intake & Output 03/26/22 03/27/22 03/28/22 03/29/22 11:59 11:59 11:59 11:59 Intake Total 1337 / 1337 1129 / 1129 0 / 0 Balance 1337 / 1337 1129 / 1129 0 / 0 - Physical Exam Oriented: Not Oriented Eyes: Normal Ear: Normal Nose: Normal Throat: Normal Respiratory: Diminished Cardiovascular: Normal, Tachycardia : Normal Auscultation: Bowel Sounds: Normal Tenderness: Diffuse Skin: Other (JAUNDICE ) Musculoskeletal: Back:Lumbar, Tender Psychiatric: Anxiety, Agitation Mood Description: Anxious Affect: Anxious, Violent Speech Pattern: Clear, Inappropriate - Laboratory and Diagnostics Result Diagrams: 03/27/22 04:20 03/27/22 04:20 Labs: Laboratory WBC 12.2 X10^3/uL (3.6-10.0) H 03/27/22 04:20 RBC 3.28 X10^6/uL (4.7-6.0) L 03/27/22 04:20 Hgb 8.3 g/dL (13.5-18.0) L 03/27/22 04:20 Hct 24.4 % (42.0-54.0) L 03/27/22 04:20 MCV 74.5 fL (80.0-100.0) L 03/27/22 04:20 MCH 25.3 pg (27.0-34.0) L 03/27/22 04:20 MCHC 33.9 g/dL (33.0-35.0) 03/27/22 04:20 RDW 23.7 % (11.6-16.5) H 03/27/22 04:20 Plt Count 403 X10^3/uL (150.0-450.0) 03/27/22 04:20 Plt Count Comment Adequate (ADEQUATE) 03/27/22 04:20 MPV 7.9 fL (7.4-11.0) 03/27/22 04:20 Neut % (Auto) 55.5 % (42.0-75.0) 03/27/22 04:20 Lymph % (Auto) 38.4 % (21.0-51.0) 03/27/22 04:20 [place] % (Auto) 4.2 % (0.0-13.0) 03/27/22 04:20 Eos % (Auto) 0.5 % (0.9-2.9) L 03/27/22 04:20 Baso % (Auto) 1.4 % (0.2-1.0) H 03/27/22 04:20 Neut # (Auto) 6.8 x10^3/uL (2.2-4.8) H 03/27/22 04:20 Lymph # (Auto) 4.7 X10^3/uL (1.3-2.9) H 03/27/22 04:20 [place] # (Auto) 0.5 x10^3/uL (0.3-0.8) 03/27/22 04:20 Eos # (Auto) 0.1 x10^3/uL (0.0-0.2) 03/27/22 04:20 Baso # (Auto) 0.2 X10^3/uL (0.0-0.1) H 03/27/22 04:20 Absolute Nucleated RBC 0.3 /100WBC 03/27/22 04:20 Total Counted 100 03/27/22 04:20 Neutrophils % (Manual) 87 % (39-76) H 03/27/22 04:20 Band Neutrophils % 8 % (0-10) 03/27/22 04:20 Lymphocytes % (Manual) 2 % (13-43) L 03/27/22 04:20 Monocytes % (Manual) 3 % (4-9) L 03/27/22 04:20 Plt Morphology Comment Normal (NORMAL) 03/27/22 04:20 RBC Morphology Abnormal (NORMAL) 03/27/22 04:20 Anisocytosis 2+ A 03/27/22 04:20 Microcytosis Slight A 03/27/22 04:20 Target Cells 1+ A 03/27/22 04:20 Ovalocytes Slight A 03/27/22 04:20 Sodium 115 mmol/L (136-145) L* 03/27/22 04:20 Corrected Sodium TNP 03/27/22 04:20 Potassium 4.8 mmol/L (3.5-5.1) 03/27/22 04:20 Chloride 84 mmol/L (98-107) L 03/27/22 04:20 Carbon Dioxide 22.2 mmol/L (21-32) 03/27/22 04:20 BUN 23 mg/dL (7-18) H 03/27/22 04:20 Creatinine 0.99 mg/dL (0.70-1.30) 03/27/22 04:20 Est GFR (MDRD) Af Amer > 60 (>60) 03/27/22 04:20 Est GFR (MDRD) Non-Af > 60 (>60) 03/27/22 04:20 Glucose 83 mg/dL (65-99) 03/27/22 04:20 Calcium 7.8 mg/dL (8.5-10.1) L 03/27/22 04:20 Corrected Calcium 9.4 mg/dL (8.5-10.1) 03/27/22 04:20 Total Bilirubin 3.90 mg/dL (0.2-1.0) H 03/27/22 04:20 AST 110 Units/L (15-37) H 03/27/22 04:20 ALT 82 Units/L (12-78) H 03/27/22 04:20 Alkaline Phosphatase 275 Units/L (46-116) H 03/27/22 04:20 Total Protein 5.0 g/dL (6.4-8.2) L 03/27/22 04:20 Albumin 2.0 g/dL (3.4-5.0) L 03/27/22 04:20 Globulin 3.0 g/dL (2.5-4.5) 03/27/22 04:20 Albumin/Globulin Ratio 0.7 Ratio (1.1-2.1) L 03/27/22 04:20 Lipase 104 Units/L (73-393) 03/26/22 13:25 SARS-CoV-2 (PCR) Negative (NEGATIVE) 03/26/22 13:54 - Plan (1) Comfort measures only status Status: Acute Plan: DURAGESIC 50MCG/HR PATCH, MORPHINE DRIP 4MG/HR, VERSED DRIP 4MG/HR (2) Acute hyponatremia Status: Acute (3) AMS (altered mental status) Status: Acute Qualifiers: Altered mental status type: transient alteration of awareness Qualified Code(s): R40.4 - Transient alteration of awareness (4) Generalized weakness Status: Acute (5) Elevated liver function tests Status: Acute (6) Failure to thrive Status: Acute Qualifiers: Failure to thrive age range: in adult Qualified Code(s): R62.7 - Adult failure to thrive (7) Metastatic disease Status: Acute Qualifiers: Area of secondary neoplastic involvement: digestive structure Digestive structure secondary neoplasm location: metastatic to unspecified digestive structure Qualified Code(s): 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
[2022-03-29] MEDS: MORPHINE SULFATE PCA 30 MG IVP PRN ×3 (00:16→06:05)
== END 2022-03-29 10:00 | disposition expired | DRG 641 ==
LOC: ER 12:26 → MED/SURG 12:26 → OBSVTOIN 15:03 → MED/SURG 15:29
PROVIDERS: ADMIT Internal Medicine; ATTEND Internal Medicine